=== PATIENT | male | born 1940 | race Caucasian/White ===

== ENCOUNTER → 2017-07-21 14:54 | Outpatient (CLI) | payer OTHER, SELFPAY ==
[2017-07-21 15:48] LABS: Add Manual Diff / Slide Review YES; Mean Corpuscular HGB Conc 35.3 % (30-36); Mean Corpuscular Hemoglobin 35.9 PG (26-34); Mean Corpuscular Volume 101.7 fL (80-100); Platelet Count 169 X10^3/uL (150-400); Red Blood Cell Count 3.35 X10^6/uL (4.5-5.9); Red Cell Distribution Width 13.4 % (11.6-14.8); White Blood Cell Count 3.3 X10^3/uL (4.5-11.0)
[2017-07-21 15:57] LABS: Alanine Aminotransferase 56 IU/L (21-72); Albumin 4.3 g/dL (3.5-5.0); Albumin Globulin Ratio 1.2 (1.0-2.8); Alkaline Phosphatase 83 U/L (38-126); Aspartate Aminotransferase 46 IU/L (17-59); BUN Creatinine Ratio 18.2 (6-22); Bilirubin Total 0.6 mg/dL (0.2-1.3); Calcium 9.4 mg/dL (8.4-10.2); Estimated Glomerular Filt Rate > 60.0 mL/min (>60); Globulin 3.5 g/dL (1.7-4.1); Glucose 79 mg/dL (80-110); HEMOLYSIS < 15 (0-50); Lactate Dehydrogenase 582 U/L (313-618); Potassium 3.7 mmol/L (3.4-5.1); Sodium 140 mmol/L (137-145); Total Protein 7.8 g/dL (6.3-8.2)
[2017-07-21 16:07] LABS: Morphology Comment Normal Morphology; Neutrophils Absolute Manual 1089 /uL (3000-5900); Total Cells Counted 100
[2017-07-21 17:03] LABS: Vitamin B12 425 pg/mL (239-931)
[2017-07-21 17:04] LABS: Folate > 20.0 ng/mL (2.76-20.0)
== END ==
PROVIDERS: PCP Family Medicine; Visit Provider Internal Medicine Hematology & Oncology
DX: D61.818 Other pancytopenia (principal)
CPT/HCPCS: 36415; 80053; 82607; 82746; 83615; 85025; 85060

== ENCOUNTER → 2017-11-07 13:55 | Outpatient (CLI) | payer OTHER, SELFPAY ==
[2017-11-07 14:39] LABS: Add Manual Diff / Slide Review YES; Hematocrit 34.9 % (41-53); Hemoglobin 12.4 g/dL (13.5-17.5); Mean Corpuscular HGB Conc 35.5 % (30-36); Mean Corpuscular Hemoglobin 36.8 PG (26-34); Mean Corpuscular Volume 103.7 fL (80-100); Platelet Count 154 X10^3/uL (150-400); Red Blood Cell Count 3.37 X10^6/uL (4.5-5.9); Red Cell Distribution Width 13.5 % (11.6-14.8)
[2017-11-07 14:40] LABS: Alanine Aminotransferase 42 IU/L (21-72); Albumin 4.1 g/dL (3.5-5.0); Albumin Globulin Ratio 1.3 (1.0-2.8); Alkaline Phosphatase 79 U/L (38-126); Aspartate Aminotransferase 39 IU/L (17-59); BUN Creatinine Ratio 18.9 (6-22); Bilirubin Total 0.8 mg/dL (0.2-1.3); Blood Urea Nitrogen 17 mg/dL (9-20); Carbon Dioxide 26 mmol/L (22-32); Chloride 105 mmol/L (98-107); Estimated Glomerular Filt Rate > 60.0 mL/min (>60); Globulin 3.1 g/dL (1.7-4.1); Glucose 100 mg/dL (80-110); HEMOLYSIS < 15 (0-50); Lactate Dehydrogenase 614 U/L (313-618); Potassium 4.1 mmol/L (3.4-5.1); Sodium 143 mmol/L (137-145); Total Protein 7.2 g/dL (6.3-8.2)
[2017-11-07 15:02] LABS: Microcytosis 1+; Neutrophils Absolute Manual 1260 /uL (3000-5900); Total Cells Counted 100
--- NOTE | 2017-11-07 16:35 | PC.NURSE ---
no lab history but appears stable, provider visit 11/10
== END ==
PROVIDERS: PCP Family Medicine; Visit Provider Internal Medicine Hematology & Oncology
DX: D61.818 Other pancytopenia (principal)
CPT/HCPCS: 36415; 80053; 83615; 85025

== ENCOUNTER 2018-11-19 22:19 | Emergency (ER) | payer OTHER, SELFPAY ==
[2018-11-19 22:42] VITALS: BP 127/56; PULSE 71; RESP 18; TEMP 36.3; O2SAT 98; BMI 24.4
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
== END 2018-11-19 23:13 | disposition left against medical advice (07) ==
PROVIDERS: Emergency Provider Emergency Medicine; PCP Family Medicine
DX: M54.2 Cervicalgia (principal)
CPT/HCPCS: 99282

== ENCOUNTER 2018-11-20 07:42 | Emergency (ER) | payer OTHER, SELFPAY ==
[2018-11-20 07:48] VITALS: BP 153/66; PULSE 66; RESP 16; TEMP 36.3; O2SAT 100
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
[2018-11-20 09:00] VITALS: BP 148/70; PULSE 60; RESP 14; O2SAT 100
== END 2018-11-20 09:52 | disposition home or self-care (01) ==
PROVIDERS: Emergency Provider Emergency Medicine; PCP Family Medicine
DX: S16.1XXA Strain of muscle, fascia and tendon at neck level, initial encounter (principal); M54.9 Dorsalgia, unspecified; V49.49XA Driver injured in collision with other motor vehicles in traffic accident, initial encounter
CPT/HCPCS: 72070; 72125; 99283

== ENCOUNTER 2019-02-03 19:43 | Emergency (ER) | payer OTHER, SELFPAY ==
[2019-02-03 19:54] VITALS: BP 148/94; PULSE 122; RESP 18; TEMP 38.2; O2SAT 99; BMI 29.0
--- NOTE | 2019-02-03 19:54 | DI.RAD.S_ITS ---
PROCEDURE: XR CHEST 1V INDICATIONS: Fever and cough TECHNIQUE: One view of the chest was acquired. COMPARISON: None. FINDINGS: Surgical changes and devices: None. Lungs and pleura: Lungs are clear. No pleural effusions or pneumothorax. Mediastinum: Mediastinal contours appear normal. Heart size is normal. Bones and chest wall: No suspicious bony lesions. Overlying soft tissues appear unremarkable. IMPRESSION: No evidence acute pulmonary process. Dictated by: Dipesh Boucher M.D. on 02/03/2019 at 20:53 Approved by: Dipesh Boucher M.D. on 02/03/2019 at 20:54
--- NOTE | 2019-02-03 20:17 | ED_ITS ---
HPI - Fever General Chief Complaint: Fever Stated Complaint: not feeling well/high temp/cold and shivery Time Seen by Provider: 02/03/19 19:53 Source: patient Mode of arrival: Ambulatory Limitations: no limitations History of Present Illness HPI Narrative: 78-year-old male history of hypertension here for evaluation of less than 24 hours of body aches and chills and dry heaving. No chest pain or shortness of breath. No urinary symptoms. No rashes. Has not tried anything for symptoms prior to arrival. No recent changes. No sick contacts. No diarrhea. Related Data Home Medications Medication Instructions Recorded Confirmed multivitamin [Multiple Vitamins] 1 tab PO QDAY #0 07/05/17 aspirin 81 mg PO BID 08/04/17 08/04/17 gabapentin 100 mg PO DAILY 08/04/17 08/04/17 gabapentin 300 mg PO BEDTIME 08/04/17 08/04/17 lisinopril 5 mg PO DAILY 08/04/17 08/04/17 tamsulosin [Flomax] 0.4 mg PO DAILY 08/04/17 08/04/17 Allergies Allergy/AdvReac Type Severity Reaction Status Date / Time No Known Drug Allergies Allergy Verified 11/19/18 22:49 Review of Systems Constitutional Constitutional: Reports chills and Reports fever(s) ENT Ears, Nose, Mouth, and Throat: Denies sore throat and Denies throat swelling Cardiovascular Cardiovascular: Denies chest pain and Denies dyspnea Respiratory Respiratory: Denies cough and Denies dyspnea Gastrointestinal Gastrointestinal: Denies abdominal pain, Denies change in stool character and Reports nausea Genitourinary Genitourinary: Denies dysuria and Denies flank pain Musculoskeletal Musculoskeletal: Reports myalgias and Denies arthralgias Integumentary/Breasts Skin/Breast: Denies rash Neurologic Neurologic: Denies behavioral changes Psychiatric Psychiatric: Denies behavioral changes Hematologic/Lymphatic Hematologic/Lymphatic: Denies easy bleeding and Denies easy bruising Allergic/Immunologic Allergic/Immunologic: Denies throat swelling Patient History Medical History Hypertension (Acute) Pancytopenia (Inactive) Social History marital status: Smoking Status: Never smoker alcohol intake frequency: 0-2 drinks per day Substance Use Type: marijuana Exam Initial Vital Signs Initial Vital Signs: Vital Signs Temperature 100.8 F H 02/03/19 19:54 Pulse Rate 122 H 02/03/19 19:54 Respiratory Rate 18 02/03/19 19:54 Blood Pressure 148/94 H 02/03/19 19:54 Pulse Oximetry 99 02/03/19 19:54 Const General: cooperative, well developed and well groomed Orientation: alert, awake and oriented x3 HENMT Head: normal to inspection and normocephalic Nose: external nose normal Face and sinus: normal facial exam Resp Effort & Inspection: normal respiratory effort Auscultation: clear to auscultation bilaterally Cardio Rate: tachycardic Rhythm: regular rhythm Pulses: radial pulses present GI Inspection: non-distended Palpation: soft and No firm Back/Spine/Pelvis Back: No CVA tenderness Skin Other: Superficial abrasion right anterior erickson otherwise no rashes Neuro General: alert, awake and oriented x3 Cognition: normal cognition Speech: speech normal Extrem General: normal to inspection and capillary refill normal Course Orders Ordered: ED Orders 02/03/19 19:54 XR chest 1V Stat 02/03/19 19:55 Influenza A and B by PCR Rapid Stat EKG-12 Lead Stat 02/03/19 20:15 Complete Blood Count AUTO DIFF Stat Lactate (Lactic Acid) Stat Procalcitonin Stat 02/03/19 20:40 Blood Culture Stat Comprehensive Metabolic Panel Stat Lipase Stat Discontinued Medications Acetaminophen (Tylenol) 650 mg PO NOW ONE Stop: 02/03/19 20:00 Last Admin: 02/03/19 20:19 Dose: 650 mg Documented by: SANDOVAL Sodium Chloride (Normal Saline 0.9%) 1,000 mls @ 1,000 mls/hr IV BOLUS ONE Stop: 02/03/19 20:52 Last Infusion: 02/03/19 21:13 Dose: 0 mls/hr Documented by: Admin: 02/03/19 20:19 Dose: 1,000 mls/hr Documented by: SANDOVAL Ibuprofen (Advil) 800 mg PO NOW ONE Stop: 02/03/19 21:17 Last Admin: 02/03/19 21:21 Dose: 800 mg Documented by: MICHAEL Ondansetron HCl (Zofran) 4 mg IV NOW ONE Stop: 02/03/19 19:54 Last Admin: 02/03/19 20:19 Dose: 4 mg Documented by: SANDOVAL Vital Signs Vital signs: Vital Signs - 8 hr 02/03/19 19:54 02/03/19 20:47 02/03/19 21:15 Temperature 100.8 F H 100.8 F H 100.6 F H Pulse Rate 122 H 97 H Respiratory Rate 18 12 Blood Pressure 148/94 H Blood Pressure [Right Arm] 132/52 L Pulse Oximetry 99 97 MDM - Fever Medical Records Attestation: I reviewed the patient's medical records. Lab Data Attestation: I reviewed the patient's lab results. Result diagrams: 02/03/19 20:15 02/03/19 20:40 Labs: Lab Results 02/03/19 02/03/19 02/03/19 Range/Units 19:55 20:15 20:15 WBC 2.9 L (4.5-11.0) X10^3/uL RBC 2.95 L (4.5-5.9) X10^6/uL Hgb 11.0 L (13.5-17.5) g/dL Hct 30.5 L (41-53) % MCV 103.5 H (80-100) fL MCH 37.4 H (26-34) PG MCHC 36.2 H (30-36) % RDW 13.4 (11.6-14.8) % Plt Count 120 L (150-400) X10^3/uL Neut % (Auto) 74.1 (50-75) % Lymph % (Auto) 6.6 L (25-40) % [place] % (Auto) 18.5 H (3-14) % Eos % (Auto) 0.7 L (2-4) % Baso % (Auto) 0.1 (0-2) % Neut # (Auto) 2100 (2048-3878) /uL Lymph # (Auto) 200 L (5852-7579) /uL [place] # (Auto) 500 (0-900) /uL Eos # (Auto) 0 (0-450) /uL Baso # (Auto) 0 (0-100) /uL Total Counted Cancelled Seg Neutrophils % Cancelled Band Neutrophils % Cancelled Lymphocytes % (Manual) Cancelled Atypical Lymphs % Cancelled Monocytes % (Manual) Cancelled Eosinophils % (Manual) Cancelled Basophils % (Manual) Cancelled Metamyelocytes % Cancelled Myelocytes % Cancelled Promyelocytes % Cancelled Blast Cells % Cancelled Neutrophils # (Manual) Cancelled Nucleated RBCs Cancelled Differential Comment Cancelled Hypersegmented Neuts Cancelled Hypogranular Neuts Cancelled Reactive Lymphocytes Cancelled Plasma Cells Cancelled Smudge Cells Cancelled Other Cell Type Cancelled Toxic Granulation Cancelled Toxic Vacuolation Cancelled Dohle Bodies Cancelled Analy Rods Cancelled WBC Morphology Comment Cancelled Platelet Estimate Cancelled Clumped Platelets Cancelled Plt Morphology Comment Cancelled RBC Morphology Cancelled Dimorphic RBCs Cancelled Polychromasia Cancelled Hypochromasia Cancelled Poikilocytosis Cancelled Basophilic Stippling Cancelled Anisocytosis Cancelled Microcytosis Cancelled Macrocytosis Cancelled Spherocytes Cancelled Pappenheimer Bodies Cancelled Sickle Cells Cancelled Target Cells Cancelled Tear Drop Cells Cancelled Ovalocytes Cancelled Stomatocytes Cancelled Helmet Cells Cancelled Fairchild-Alvan Bodies Cancelled [place] Rings Cancelled Arsen Cells Cancelled Acanthocytes (Spur) Cancelled Rouleaux Cancelled Schistocytes Cancelled Sodium (137-145) mmol/L Potassium (3.4-5.1) mmol/L Chloride (98-107) mmol/L Carbon Dioxide (22-32) mmol/L BUN (9-20) mg/dL Creatinine (0.66-1.25) mg/dL Estimated GFR (>60) mL/min BUN/Creatinine Ratio (6-22) Glucose (80-110) mg/dL Lactate (0.7-2.1) mmol/L Calcium (8.4-10.2) mg/dL Total Bilirubin (0.2-1.3) mg/dL AST (17-59) IU/L ALT (<50) IU/L Alkaline Phosphatase (38-126) U/L Total Protein (6.3-8.2) g/dL Albumin (3.5-5.0) g/dL Globulin (1.7-4.1) g/dL Albumin/Globulin Ratio (1.0-2.8) Lipase (23-300) U/L Procalcitonin 0.07 (<0.5) ng/mL Influenza A & B (PCR) Negative (Negative) 02/03/19 02/03/19 Range/Units 20:15 20:40 WBC (4.5-11.0) X10^3/uL RBC (4.5-5.9) X10^6/uL Hgb (13.5-17.5) g/dL Hct (41-53) % MCV (80-100) fL MCH (26-34) PG MCHC (30-36) % RDW (11.6-14.8) % Plt Count (150-400) X10^3/uL Neut % (Auto) (50-75) % Lymph % (Auto) (25-40) % [place] % (Auto) (3-14) % Eos % (Auto) (2-4) % Baso % (Auto) (0-2) % Neut # (Auto) (5498-6968) /uL Lymph # (Auto) (9915-9129) /uL [place] # (Auto) (0-900) /uL Eos # (Auto) (0-450) /uL Baso # (Auto) (0-100) /uL Total Counted Seg Neutrophils % Band Neutrophils % Lymphocytes % (Manual) Atypical Lymphs % Monocytes % (Manual) Eosinophils % (Manual) Basophils % (Manual) Metamyelocytes % Myelocytes % Promyelocytes % Blast Cells % Neutrophils # (Manual) Nucleated RBCs Differential Comment Hypersegmented Neuts Hypogranular Neuts Reactive Lymphocytes Plasma Cells Smudge Cells Other Cell Type Toxic Granulation Toxic Vacuolation Dohle Bodies [place] Rods WBC Morphology Comment Platelet Estimate Clumped Platelets Plt Morphology Comment RBC Morphology Dimorphic RBCs Polychromasia Hypochromasia Poikilocytosis Basophilic Stippling Anisocytosis Microcytosis Macrocytosis Spherocytes Pappenheimer Bodies Sickle Cells Target Cells Tear Drop Cells Ovalocytes Stomatocytes Helmet Cells Fairchild-Alvan Bodies [place] Rings [place] Cells Acanthocytes (Spur) Rouleaux Schistocytes Sodium 135 L (137-145) mmol/L Potassium 3.6 (3.4-5.1) mmol/L Chloride 103 (98-107) mmol/L Carbon Dioxide 25 (22-32) mmol/L BUN 31 H (9-20) mg/dL Creatinine 1.10 (0.66-1.25) mg/dL Estimated GFR > 60.0 (>60) mL/min BUN/Creatinine Ratio 28.2 H (6-22) Glucose 107 (80-110) mg/dL Lactate 1.3 (0.7-2.1) mmol/L Calcium 9.0 (8.4-10.2) mg/dL Total Bilirubin 0.7 (0.2-1.3) mg/dL AST 23 (17-59) IU/L ALT 14 (<50) IU/L Alkaline Phosphatase 66 (38-126) U/L Total Protein 7.0 (6.3-8.2) g/dL Albumin 3.9 (3.5-5.0) g/dL Globulin 3.1 (1.7-4.1) g/dL Albumin/Globulin Ratio 1.3 (1.0-2.8) Lipase 37 (23-300) U/L Procalcitonin (<0.5) ng/mL Influenza A & B (PCR) (Negative) Imaging Data Chest x-ray: Radiologist's impression: [address] [address] XRay Report Signed Patient: Jairo OchoaMR#: [id number] : 1Acct:[id number] Age/Sex: 78 / MDate of Service: 02/03/19 Loc: ED Accession Number: [id number] Procedure: XR chest 1V Ordering Provider: Timothy Win D.O. PROCEDURE: XR CHEST 1V INDICATIONS: Fever and cough TECHNIQUE: One view of the chest was acquired. COMPARISON: None. FINDINGS: Surgical changes and devices: None. Lungs and pleura: Lungs are clear. No pleural effusions or pneumothorax. Mediastinum: Mediastinal contours appear normal. Heart size is normal. Bones and chest wall: No suspicious bony lesions. Overlying soft tissues a ppear unremarkable. IMPRESSION: No evidence acute pulmonary process. Dictated by: Dipesh Boucher M.D. on 02/03/2019 at 20:53 Approved by: Dipesh Boucher M.D. on 02/03/2019 at 20:54 ECG Data Attestation: I personally reviewed and interpreted this ECG as follows: Prior ECG tracings: not available for review Interpretation: Sinus tachycardia Ventricular rate of 108 Normal axis Normal QRS Normal QTC No ST T wave changes MDM Narrative Medical decision making narrative: Patient is nontoxic appearing. He had a low- grade fever upon arrival and tachycardia however this improved with fluids. Patient has a low white blood cell count however this is not new for him. He does not have a left shift. Lipase is unremarkable. Procalcitonin is unremarkable. Chest x-ray shows no signs of pneumonia. Patient was unable to provide a urine sample however he has no urinary tract infection like symptoms and has never had a urinary tract infection in the past. He has no changes of his skin concerning for cellulitis. His abdomen is benign. Has no signs of meningitis. Flu is negative. I have no indication for antibiotics. I do not have a specific source for his fever. He has had some slight abdominal pain and some dry heaves prior to arrival with that has improved was able to tolerate oral intake. Potentially could be fighting a GI source. Will hold on further workup for now. Patient feels like he can go home. We will hold on antibiotics. We did discuss the use of Tylenol and ibuprofen. Blood cultures are pending. Patient was given strict return precautions. He expressed understanding and agreement with plan. Discharge Plan Departure Patient Disposition: Home Clinical Impression: Fever of unknown origin, Chill, Nausea Instructions: DI for Fever (Symptom) -- Adult Activity Restrictions/Additional Instructions: Take the nausea medication as needed and as directed. Continue the rest your medications as directed. You can take Tylenol and/or ibuprofen for any fevers. I recommend that on Tuesday you contact your primary provider for follow-up. Return to the emergency department for any new or worsening symptoms Prescriptions: No Action multivitamin [Multiple Vitamins] 1 EACH tablet 1 tab PO QDAY Qty: 0 RF: 0 aspirin 81 mg Tablet,Delayed Release (Dr/Ec) 81 mg PO BID RF: 0 tamsulosin [Flomax] 0.4 mg Capsule,Extended Release 24hr 0.4 mg PO DAILY RF: 0 lisinopril 5 mg Tablet 5 mg PO DAILY RF: 0 gabapentin 100 mg Capsule 100 mg PO DAILY RF: 0 gabapentin 100 mg Capsule 300 mg PO BEDTIME RF: 0 Referrals: Shandra Barrett MD [Primary Care Provider] -
[2019-02-03] MEDS: ACETAMINOPHEN 325 MG TABLET 650 MG PO (20:19)
[2019-02-03] MEDS: ONDANSETRON 4 MG/2 ML INJ IV (20:19)
[2019-02-03] MEDS: SODIUM CHLORIDE 0.9% 1,000 ML 1000 ML IV (20:19)
[2019-02-03 20:22] LABS: Influenza A and B by PCR Rapid Negative (Negative)
[2019-02-03 20:24] LABS: Add Manual Diff / Slide Review NO; Basophils Absolute Auto 0 /uL (0-100); Basophils Percent Auto 0.1 % (0-2); Eosinophils Absolute Auto 0 /uL (0-450); Eosinophils Percent Auto 0.7 % (2-4); Hematocrit 30.5 % (41-53); Lymphocytes Absolute Auto 200 /uL (1100-4500); Lymphocytes Percent Auto 6.6 % (25-40); Mean Corpuscular HGB Conc 36.2 % (30-36); Mean Corpuscular Hemoglobin 37.4 PG (26-34); Mean Corpuscular Volume 103.5 fL (80-100); Monocytes Absolute Auto 500 /uL (0-900); Monocytes Percent Auto 18.5 % (3-14); Neutrophils Absolute Auto 2100 /uL (1500-7000); Neutrophils Percent Auto 74.1 % (50-75); Platelet Count 120 X10^3/uL (150-400); Red Blood Cell Count 2.95 X10^6/uL (4.5-5.9); Red Cell Distribution Width 13.4 % (11.6-14.8); White Blood Cell Count 2.9 X10^3/uL (4.5-11.0)
[2019-02-03 20:35] LABS: Lactate (Lactic Acid) 1.3 mmol/L (0.7-2.1)
[2019-02-03 20:47] VITALS: BP 132/52; PULSE 97; RESP 12; TEMP 38.2; O2SAT 97
[2019-02-03 20:53] LABS: Procalcitonin 0.07 ng/mL (<0.5)
[2019-02-03 21:13] LABS: Alanine Aminotransferase 14 IU/L (<50); Albumin 3.9 g/dL (3.5-5.0); Albumin Globulin Ratio 1.3 (1.0-2.8); Alkaline Phosphatase 66 U/L (38-126); Aspartate Aminotransferase 23 IU/L (17-59); BUN Creatinine Ratio 28.2 (6-22); Bilirubin Total 0.7 mg/dL (0.2-1.3); Blood Urea Nitrogen 31 mg/dL (9-20); Carbon Dioxide 25 mmol/L (22-32); Chloride 103 mmol/L (98-107); Estimated Glomerular Filt Rate > 60.0 mL/min (>60); Globulin 3.1 g/dL (1.7-4.1); Glucose 107 mg/dL (80-110); HEMOLYSIS < 15 (0-50); Lipase 37 U/L (23-300); Potassium 3.6 mmol/L (3.4-5.1); Sodium 135 mmol/L (137-145)
[2019-02-03 21:15] VITALS: TEMP 38.1
[2019-02-03] MEDS: IBUPROFEN 400 MG TABLET 800 MG PO (21:21)
[2019-02-03 21:52] VITALS: BP 117/60; PULSE 93; RESP 15
[2019-02-03] MEDS: ONDANSETRON 4 MG ODT PREPACK 1 BOTTLE MISC (21:52)
[2019-02-03 21:54] VITALS: BP 117/60; PULSE 92; RESP 16; TEMP 37.7; O2SAT 97
== END 2019-02-03 22:01 | disposition home or self-care (01) ==
PROVIDERS: Emergency Provider Emergency Medicine; PCP Internal Medicine
DX: R50.9 Fever, unspecified (principal); R11.0 Nausea; R05 Cough; R00.0 Tachycardia, unspecified; I10 Essential (primary) hypertension
CPT/HCPCS: 36415; 71045; 80053; 83605; 83690; 84145; 85025; 87040; 87502; 93005; 96361; 96374; 99283; 99285; J2405

== ENCOUNTER 2019-07-18 16:19 | Emergency (ER) | payer OTHER, SELFPAY ==
[2019-07-18] VITALS (9 sets, daily range): BP systolic 178–229; BP diastolic 88–127; PULSE 60–98; RESP 15–19; TEMP 36.9; O2SAT 96–98; BMI 28.6
[2019-07-18 17:14] LABS: Hematocrit 34.4 % (41-53); Hemoglobin 12.2 g/dL (13.5-17.5); Mean Corpuscular HGB Conc 35.6 % (30-36); Mean Corpuscular Hemoglobin 35.9 PG (26-34); Mean Corpuscular Volume 100.8 fL (80-100); Platelet Count 140 X10^3/uL (150-400); Red Blood Cell Count 3.41 X10^6/uL (4.5-5.9); Red Cell Distribution Width 13.5 % (11.6-14.8); White Blood Cell Count 2.6 X10^3/uL (4.5-11.0)
[2019-07-18 17:16] LABS: Add Manual Diff / Slide Review YES
[2019-07-18 17:23] LABS: Alanine Aminotransferase 19 IU/L (<50); Albumin Globulin Ratio 1.1 (1.0-2.8); Alkaline Phosphatase 73 U/L (38-126); Aspartate Aminotransferase 32 IU/L (17-59); BUN Creatinine Ratio 22.7 (6-22); Bilirubin Total 0.5 mg/dL (0.2-1.3); Blood Urea Nitrogen 20 mg/dL (9-20); Calcium 8.7 mg/dL (8.4-10.2); Carbon Dioxide 25 mmol/L (22-32); Chloride 107 mmol/L (98-107); Creatine Kinase 235 U/L (55-170); Estimated Glomerular Filt Rate > 60.0 mL/min (>60); Globulin 3.5 g/dL (1.7-4.1); Glucose 105 mg/dL (80-110); HEMOLYSIS < 15 (0-50); Potassium 3.9 mmol/L (3.4-5.1); Sodium 139 mmol/L (137-145); Total Protein 7.5 g/dL (6.3-8.2)
[2019-07-18 17:34] LABS: Troponin I 0.015 ng/mL (0.01-0.034)
[2019-07-18 17:38] LABS: CKMB % Relative Index 1.1 % (1.5-5.0); Creatine Kinase MB 2.57 ng/mL (<2.37)
[2019-07-18 17:42] LABS: Neutrophils Absolute Manual 520 /uL (3000-5900); Total Cells Counted 50
[2019-07-18 17:44] LABS: Macrocytosis 1+
[2019-07-18] MEDS: lisinopriL 10 MG TABLET PO (19:41)
[2019-07-18] MEDS: ACETAMINOPHEN 325 MG TABLET 650 MG PO (19:42)
[2019-07-18] MEDS: HYDRALAZINE 10 MG TABLET PO (20:53)
--- NOTE | 2019-07-18 21:37 | ED.GENADULT ---
HPI - General Adult <JAMES Calderon - Last Filed: 07/19/19 00:31> General Chief complaint: Hypertension Stated complaint: states high blood pressure Time Seen by Provider: 07/18/19 16:45 Source: patient Mode of arrival: Ambulatory Limitations: no limitations History of Present Illness HPI narrative: This is a 78-year-old male, nonsmoker, who presents to ED with chief complaint of elevated blood pressure without chest pain, dyspnea, dizziness, severe headache, vision change or abdominal pain. He has chronic medical conditions such as hypertension, BPH and currently takes penicillin 4 times a day for dental problem. Patient reports [facility] for tooth extraction and this was canceled due to his elevated blood pressure was referred to going to ED for evaluation. Patient reports at that time his blood pressure was 191 and 173 over 90's and diastolic. Patient states he takes lisinopril for blood pressure management but is not sure of the dose. He states he thinks he had taken blood pressure medication today around 1300. Patient states he does not have problem with memories but at times he forgets take his medications or misses a dose. Patient reports his usual blood pressure ranges from 120-150's in systolic. Patient reports occasional headaches during last 2 weeks. Otherwise, he denies weakness to extremities, speech difficulty, nausea, vomiting, balance problems. Related Data Home Medications Medication Instructions Recorded Confirmed multivitamin [Multiple Vitamins] 1 tab PO QDAY #0 07/05/17 aspirin 81 mg PO BID 08/04/17 08/04/17 gabapentin 100 mg PO DAILY 08/04/17 08/04/17 gabapentin 300 mg PO BEDTIME 08/04/17 08/04/17 lisinopril 5 mg PO DAILY 08/04/17 08/04/17 tamsulosin [Flomax] 0.4 mg PO DAILY 08/04/17 08/04/17 lisinopril-hydrochlorothiazide tab 07/18/19 Allergies Allergy/AdvReac Type Severity Reaction Status Date / Time No Known Drug Allergies Allergy Verified 11/19/18 22:49 Review of Systems <JAMES Calderon - Last Filed: 07/19/19 00:31> Review of Systems Narrative: General: Denies fever, chills, fatigue, malaise, sweats. HEENT: Denies sinus pain, ear pain, sore throat, difficulty swallowing, dizziness. Respiratory: Denies dyspnea, cough, wheezing, hemoptysis, sputum. Cardiovascular: Denies chest pain, palpitations, orthopnea, edema. Gastrointestinal: Denies nausea, vomiting, abdominal pain, diarrhea, constipation, melena. : Denies dysuria, frequency, incontinence, hematuria, urinary retention. Musculoskeletal: Denies weakness, joint pain or bony pain. Skin: Denies rash, skin lesions, or other. Neurologic: Denies weakness, (+) occasional headache, numbness, change in speech, confusion, seizures, incoordination. Psychiatric: No concerning psychosocial issues. 12-point review of systems is negative except for those stated above. Patient History <JAMES Calderon - Last Filed: 07/19/19 00:31> Medical History BPH (benign prostatic hyperplasia) (Acute) Hypertension (Acute) Pancytopenia (Inactive) Social History marital status: Smoking Status: Never smoker Smoking Status: Never smoker alcohol intake frequency: 0-2 drinks per day Substance Use Type: marijuana Exam <JAMES Calderon - Last Filed: 07/19/19 00:31> Narrative Exam Narrative: GEN: Alert, oriented x 3, well appearing and nourished, and in no acute distress. Head: Normal cephalic, atraumatic. No scalp or temporal tenderness, palpable mass or rash. EYES: Pupils are equal, round, and reactive to light and accommodation. Extraocular muscles are intact bilaterally. There is no subconjunctival hemorrhage, exudate and sclera non-icteric. ENT: Hearing grossly intact. Nose without bleeding, purulent discharge. Facial sinuses nontender to palpate. Mucous membrane moist, no mucosal lesion. Throat without erythema, tonsillar hypertrophy or exudate. Uvula in midline, airway patent. Neck: Trachea in midline. No JVD, non-tender without lymphadenopathy. No masses or thyroid megaly. Supple, non-tender and no meningeal signs. CARDIAC: Normal regular rate and rhythm without murmurs, gallops, or rubs. No chest wall tenderness. No peripheral edema, cyanosis or pallor. Capillary refill is less than 2 seconds. No carotid bruits. RESPIRATORY: Lungs are cleat to auscultate bilaterally. No cough, wheezes, rales, or rhonchi. No stridor, respiratory distress, increase work of breathing, or accessary muscle used. ABD: Abdomen soft, nontender and non-distended. No guarding or rebound tenderness to palpate. Bowel sounds are normal in all 4 quadrants. There is no palpable masses or organomegaly. EXT: Full painless ROM of all extremities with no loss of sensation, strength, effusion or edema. SKIN: Warm, dry, normal color for patient. No erythema, lesions or rash. BACK: Nontender without deformity or crepitance. No flank tenderness. NEUROLOGICAL: Alert and oriented to place, time and person. No facial droops, dysphasia. CN II-XII intact. Strength and sensation symmetric and intact throughout. Cerebellar testing normal. PSYCHIATRIC: Good judgement and reason, without hallucinations, abnormal affect or abnormal behaviors during the examination. Initial Vital Signs Initial Vital Signs: Vital Signs Temperature 98.4 F 07/18/19 16:31 Pulse Rate 69 07/18/19 16:31 Respiratory Rate 16 07/18/19 16:31 Blood Pressure 213/127 H 07/18/19 16:31 Pulse Oximetry 98 07/18/19 16:31 <Lawrence Montejo DO - Last Filed: 07/19/19 05:08> Initial Vital Signs Initial Vital Signs: Vital Signs Temperature 98.4 F 07/18/19 16:31 Pulse Rate 69 07/18/19 16:31 Respiratory Rate 16 07/18/19 16:31 Blood Pressure 213/127 H 07/18/19 16:31 Pulse Oximetry 98 07/18/19 16:31 Scores <JAMES Calderon - Last Filed: 07/19/19 00:31> GCS Kasey coma scale eye opening: Spontaneous Kasey coma scale verbal response: Orientated Kasey coma scale motor response: Obey commands [place] coma scale total score: 15 NIH Stroke Scale Level of Conciousness: Alert, keenly responsive Ask month/age: Answers both questions correctly. Open/close eyes, close hand: Performs both tasks correctly Best gaze horizontal: Normal Visual espinoza: No visual loss Facial palsy: Normal symetrical movement Left arm drift: No drift for full 10 sec Right arm drift: No drift for full 10 sec Left leg drift: No drift for full 10 sec Right leg drift: No drift for full 10 sec Limb ataxia: Absent Sensory on face/arms/legs: Normal, no sensory loss Best language: No aphasia, normal Dysarthria: Normal Extinction or inattention: No abnormality Total NIH Stroke scale score: 0 Course <JAMES Calderon - Last Filed: 07/19/19 00:31> Orders Ordered: Discontinued Medications Acetaminophen (Tylenol) 975 mg PO NOW ONE Stop: 07/18/19 17:18 Last Admin: 07/18/19 17:51 Dose: Not Given Documented by: MARIA D Acetaminophen (Tylenol) 650 mg PO NOW ONE Stop: 07/18/19 18:20 Last Admin: 07/18/19 19:42 Dose: 650 mg Documented by: VIVIANAFARL Hydralazine HCl (Apresoline) 10 mg PO NOW ONE Stop: 07/18/19 20:43 Last Admin: 07/18/19 20:53 Dose: 10 mg Documented by: VIVIANAFARL Lisinopril (Zestril) 10 mg PO NOW ONE Stop: 07/18/19 18:52 Last Admin: 07/18/19 19:41 Dose: 10 mg Documented by: DEANDRA Vital Signs Vital signs: Vital Signs - 8 hr 07/18/19 21:27 07/18/19 21:40 Pulse Rate 62 60 Respiratory Rate 15 Blood Pressure 178/88 H Blood Pressure [Right Arm] 198/93 H Pulse Oximetry 97 96 <Lawrence Montejo DO - Last Filed: 07/19/19 05:08> Orders Ordered: Discontinued Medications Acetaminophen (Tylenol) 975 mg PO NOW ONE Stop: 07/18/19 17:18 Last Admin: 07/18/19 17:51 Dose: Not Given Documented by: MARIA D Acetaminophen (Tylenol) 650 mg PO NOW ONE Stop: 07/18/19 18:20 Last Admin: 07/18/19 19:42 Dose: 650 mg Documented by: MMCFARL Hydralazine HCl (Apresoline) 10 mg PO NOW ONE Stop: 07/18/19 20:43 Last Admin: 07/18/19 20:53 Dose: 10 mg Documented by: MMCFARL Lisinopril (Zestril) 10 mg PO NOW ONE Stop: 07/18/19 18:52 Last Admin: 07/18/19 19:41 Dose: 10 mg Documented by: DEANDRA Vital Signs Vital signs: Vital Signs - 8 hr 07/18/19 21:27 07/18/19 21:40 Pulse Rate 62 60 Respiratory Rate 15 Blood Pressure 178/88 H Blood Pressure [Right Arm] 198/93 H Pulse Oximetry 97 96 Medical Decision Making <Conor Orantes JAMES - Last Filed: 07/19/19 00:31> Differential Diagnosis Differential Diagnosis: HTN crisis, essential HTN, cardiomyopathy Medical Records Medical records reviewed: Yes I reviewed the patient's medical records. Lab Data Lab results reviewed: Yes I reviewed the patient's lab results. Result diagrams: 07/18/19 17:04 07/18/19 17:04 Labs: Lab Results 07/18/19 07/18/19 Range/Units 17:04 17:04 WBC 2.6 L (4.5-11.0) X10^3/uL RBC 3.41 L (4.5-5.9) X10^6/uL Hgb 12.2 L (13.5-17.5) g/dL Hct 34.4 L (41-53) % MCV 100.8 H (80-100) fL MCH 35.9 H (26-34) PG MCHC 35.6 (30-36) % RDW 13.5 (11.6-14.8) % Plt Count 140 L (150-400) X10^3/uL Neut % (Auto) Not Reportable Lymph % (Auto) Not Reportable Stone % (Auto) Not Reportable Eos % (Auto) Not Reportable Baso % (Auto) Not Reportable Lymph # (Auto) Not Reportable Stone # (Auto) Not Reportable Baso # (Auto) Not Reportable Total Counted 50 Seg Neutrophils % 6.0 L (38-70) % Band Neutrophils % 14.0 H (3-7) % Lymphocytes % (Manual) 22.0 L (25-45) % Atypical Lymphs % 14.0 H ( - 0) % Monocytes % (Manual) 42.0 H (2-11) % Metamyelocytes % 2.0 H (-0) % Neutrophils # (Manual) 520 L (2834-3681) /uL Plt Morphology Comment RBC Morphology See below Macrocytosis 1+ H Sodium 139 (137-145) mmol/L Potassium 3.9 (3.4-5.1) mmol/L Chloride 107 (98-107) mmol/L Carbon Dioxide 25 (22-32) mmol/L BUN 20 (9-20) mg/dL Creatinine 0.88 (0.66-1.25) mg/dL Estimated GFR > 60.0 (>60) mL/min BUN/Creatinine Ratio 22.7 H (6-22) Glucose 105 (80-110) mg/dL Calcium 8.7 (8.4-10.2) mg/dL Total Bilirubin 0.5 (0.2-1.3) mg/dL AST 32 (17-59) IU/L ALT 19 (<50) IU/L Alkaline Phosphatase 73 (38-126) U/L Total Creatine Kinase 235 H (55-170) U/L CK-MB (CK-2) 2.57 H (<2.37) ng/mL CK-MB (CK-2) Rel Index 1.1 L (1.5-5.0) % Troponin I 0.015 (0.01-0.034) ng/mL Total Protein 7.5 (6.3-8.2) g/dL Albumin 4.0 (3.5-5.0) g/dL Globulin 3.5 (1.7-4.1) g/dL Albumin/Globulin Ratio 1.1 (1.0-2.8) Imaging Data Chest x-ray: Radiologist's Impression: [address] [address] XRay Report Signed Patient: Jairo Ochoa#: [id number] : 1Acct:[id number] Age/Sex: 78 / MDate of Service: 02/03/19 Loc: ED Accession Number: [id number] Procedure: XR chest 1V Ordering Provider: Timothy Win D.O. PROCEDURE: XR CHEST 1V INDICATIONS: Fever and cough TECHNIQUE: One view of the chest was acquired. COMPARISON: None. FINDINGS: Surgical changes and devices: None. Lungs and pleura: Lungs are clear. No pleural effusions or pneumothorax. Mediastinum: Mediastinal contours appear normal. Heart size is normal. Bones and chest wall: No suspicious bony lesions. Overlying soft tissues appear unremarkable. IMPRESSION: No evidence acute pulmonary process. Dictated by: Dipesh Boucher M.D. on 02/03/2019 at 20:53 Approved by: Dipesh Boucher M.D. on 02/03/2019 at 20:54 ECG Data Attestation: I personally reviewed and interpreted this ECG as follows: Prior ECG tracings: available for review Interpretation: Sinus rhythm rate at 72. Normal [place]. MI interval 142, QRS duration 80, QT/QTC 398/439. No ST elevation or depression. MDM Narrative Medical decision making narrative: This is a 78-year-old gentleman who presents to ED for elevated blood pressure after he was referred by his dentist this morning. Patient denies chest pain, breathing difficulty, dizziness, vision change, balance problem, weakness to extremities, speech difficulty. Patient reports he has occasional mild headache last couple of weeks. The neurological and Physical exams were unremarkable. was unremarkable. EKG was normal sinus rhythm without ST elevation or depression. chest x-ray shows no acute changes with normal heart size. CBC shows mild anemia your in patient's baseline. Chemistry test was unremarkable with normal liver and kidney function test. Troponin was negative with mildly elevated total CK is with slightly decresed CK-MB index. Patient was initially monitored without any medication therapy but this was unsuccessful. The highest BP was 229 in systolic upto 127 diastolic. It appears to be patient had not started on new hypertensive medication of Lisinopril 20mg/HCTZ 25mg which was prescribed yesterday and has taken lisinopril 5 mg as his old prescription. Patient was provided 10 mg of lisinopril while in ED without much efficacy and remaining BP as 207/97. Patient was treated with Hydralizine 10 mg one time dose orally. Patient's blood pressure had decreased to 198/93. Patient advised to start his new blood pressure medication tomorrow morning. Patient requested tamsulosin refill stating ran out which appears to be already has an refill order in [facility] by his PCP. Patient advised to monitor his blood pressure next several days and to follow up with his primary care physician to check the efficacy of new blood pressure medication. No additional medication has been prescribed at this time. Patient advised to use pill box and setting an alarm to remind him to take medications regularly. Return precautions were discussed with patient and patient verbalized understanding in agreement with treatment plan. <Lawrence Montejo, DO - Last Filed: 07/19/19 05:08> Lab Data Labs: Lab Results 07/18/19 07/18/19 Range/Units 17:04 17:04 WBC 2.6 L (4.5-11.0) X10^3/uL RBC 3.41 L (4.5-5.9) X10^6/uL Hgb 12.2 L (13.5-17.5) g/dL Hct 34.4 L (41-53) % MCV 100.8 H (80-100) fL MCH 35.9 H (26-34) PG MCHC 35.6 (30-36) % RDW 13.5 (11.6-14.8) % Plt Count 140 L (150-400) X10^3/uL Neut % (Auto) Not Reportable Lymph % (Auto) Not Reportable Stone % (Auto) Not Reportable Eos % (Auto) Not Reportable Baso % (Auto) Not Reportable Lymph # (Auto) Not Reportable Stone # (Auto) Not Reportable Baso # (Auto) Not Reportable Total Counted 50 Seg Neutrophils % 6.0 L (38-70) % Band Neutrophils % 14.0 H (3-7) % Lymphocytes % (Manual) 22.0 L (25-45) % Atypical Lymphs % 14.0 H ( - 0) % Monocytes % (Manual) 42.0 H (2-11) % Metamyelocytes % 2.0 H (-0) % Neutrophils # (Manual) 520 L (9876-3279) /uL Plt Morphology Comment RBC Morphology See below Macrocytosis 1+ H Sodium 139 (137-145) mmol/L Potassium 3.9 (3.4-5.1) mmol/L Chloride 107 (98-107) mmol/L Carbon Dioxide 25 (22-32) mmol/L BUN 20 (9-20) mg/dL Creatinine 0.88 (0.66-1.25) mg/dL Estimated GFR > 60.0 (>60) mL/min BUN/Creatinine Ratio 22.7 H (6-22) Glucose 105 (80-110) mg/dL Calcium 8.7 (8.4-10.2) mg/dL Total Bilirubin 0.5 (0.2-1.3) mg/dL AST 32 (17-59) IU/L ALT 19 (<50) IU/L Alkaline Phosphatase 73 (38-126) U/L Total Creatine Kinase 235 H (55-170) U/L CK-MB (CK-2) 2.57 H (<2.37) ng/mL CK-MB (CK-2) Rel Index 1.1 L (1.5-5.0) % Troponin I 0.015 (0.01-0.034) ng/mL Total Protein 7.5 (6.3-8.2) g/dL Albumin 4.0 (3.5-5.0) g/dL Globulin 3.5 (1.7-4.1) g/dL Albumin/Globulin Ratio 1.1 (1.0-2.8) Discharge Plan Departure Patient Disposition: Home Clinical Impression: Hypertension Qualifiers: Hypertension type: unspecified Qualified Code(s): I10 - Essential (primary) hypertension Discharge Date/Time: 07/18/19 21:40 Instructions: DI for High Blood Pressure Activity Restrictions/Additional Instructions: You have been diagnosed with [hypertension, BP 213/127 initially when he arrived in ED without symptoms. You were medicated with additional lisinopril 10 mg and hydralazine 10 mg while in ED which improved. it appears to be that you had not started new blood pressure medication that was prescribed yesterday, lisinopril 25 mg/HCTZ. ]. What to do: *Take your medications as directed. Please utilize pillbox to remind herself to take blood pressure medications in the morning and set an alarm. Please monitor blood pressure over next few days after taking the new medications. Please take Flomax at night as well. *Follow up with your primary care provider in 2-3 days, call for an appointment. Let them know you were seen in the ED and that we asked you to be seen in follow up. *Return to ED if you have any new, worsening, or concerning symptoms, such as [chest pain, breathing difficulty, unable to tolerate fluids, stroke symptoms, or any acute concerns]. Prescriptions: No Action multivitamin [Multiple Vitamins] 1 EACH tablet 1 tab PO QDAY Qty: 0 RF: 0 aspirin 81 mg Tablet,Delayed Release (Dr/Ec) 81 mg PO BID RF: 0 tamsulosin [Flomax] 0.4 mg Capsule,Extended Release 24hr 0.4 mg PO DAILY RF: 0 lisinopril 5 mg Tablet 5 mg PO DAILY RF: 0 gabapentin 100 mg Capsule 100 mg PO DAILY RF: 0 gabapentin 100 mg Capsule 300 mg PO BEDTIME RF: 0 lisinopril-hydrochlorothiazide 20-25 mg tablet RF: 0 Referrals: Shandra Barrett MD [Primary Care Provider] - <Lawrence Montejo DO - Last Filed: 07/19/19 05:08> Cosign ED Attending Cosignature Attestation: I was immediately available in the department for consultation. This documentation has been reviewed and I agree with assessment and plan. Supervised by Lawrence Montejo DO
== END 2019-07-18 21:40 | disposition home or self-care (01) ==
PROVIDERS: Emergency Medicine; Emergency Provider Nurse Practitioner Family; PCP Internal Medicine; Referring Provider Internal Medicine
DX: I10 Essential (primary) hypertension (principal); R50.9 Fever, unspecified; R05 Cough
CPT/HCPCS: 36415; 80053; 82550; 82553; 84484; 85025; 93005; 99284

== ENCOUNTER 2020-10-17 22:34 | Inpatient (IN) | payer OTHER, SELFPAY ==
[2020-10-17 22:35] VITALS: BP 200/97; PULSE 93; RESP 14; TEMP 36.9; O2SAT 95; BMI 26.4
[2020-10-17 23:09] LABS: Alanine Aminotransferase 113 IU/L (<50); BUN Creatinine Ratio 22.9 (6-22); Blood Urea Nitrogen 32 mg/dL (9-20); Calcium 9.2 mg/dL (8.4-10.2); Carbon Dioxide 25 mmol/L (22-32); Chloride 103 mmol/L (98-107); Estimated Glomerular Filt Rate 48.8 mL/min (>60); Glucose 144 mg/dL (80-110); Sodium 137 mmol/L (137-145)
[2020-10-17 23:10] LABS: Add Manual Diff / Slide Review NO; Basophils Absolute Auto 0 /uL (0-100); Basophils Percent Auto 0.2 % (0-2); Eosinophils Absolute Auto 0 /uL (0-450); Eosinophils Percent Auto 0.3 % (2-4); Hematocrit 30.7 % (41-53); Hemoglobin 10.5 g/dL (13.5-17.5); Lymphocytes Absolute Auto 500 /uL (1100-4500); Lymphocytes Percent Auto 13.3 % (25-40); Mean Corpuscular HGB Conc 34.2 % (30-36); Mean Corpuscular Hemoglobin 35.3 PG (26-34); Mean Corpuscular Volume 103.3 fL (80-100); Monocytes Absolute Auto 1100 /uL (0-900); Monocytes Percent Auto 28.8 % (3-14); Neutrophils Absolute Auto 2300 /uL (1500-7000); Neutrophils Percent Auto 57.4 % (50-75); Platelet Count 144 X10^3/uL (150-400); Red Blood Cell Count 2.98 X10^6/uL (4.5-5.9); Red Cell Distribution Width 13.9 % (11.6-14.8)
[2020-10-17 23:13] LABS: Potassium 4.7 mmol/L (3.4-5.1)
[2020-10-17 23:14] LABS: Aspartate Aminotransferase 153 IU/L (17-59)
[2020-10-17 23:15] LABS: Alkaline Phosphatase 146 U/L (38-126)
--- NOTE | 2020-10-17 23:20 | ED_ITS ---
HPI - General Adult General Chief complaint: Abdominal Pain Stated complaint: ABD Pain Time Seen by Provider: 10/17/20 22:49 Source: patient and EMS Mode of arrival: EMS Limitations: no limitations History of Present Illness HPI narrative: Patient is an 80-year-old male brought in by EMS for evaluation of abdominal discomfort. He has had some nausea today. No fevers. Last bowel movement was yesterday. Has also had a poor appetite. No fevers. No prior abdominal surgeries. No urinary symptoms. No chest pain. No shortness of breath. Has not tried anything for symptoms prior to arrival. Related Data Home Medications Medication Instructions Recorded Confirmed multivitamin (Multiple Vitamins) 1 tab PO QDAY #0 07/05/17 aspirin 81 mg tablet,delayed 81 mg PO BID 08/04/17 08/04/17 release gabapentin 100 mg capsule 100 mg PO DAILY 08/04/17 08/04/17 gabapentin 100 mg capsule 300 mg PO BEDTIME 08/04/17 08/04/17 lisinopril 5 mg tablet 5 mg PO DAILY 08/04/17 08/04/17 tamsulosin 0.4 mg capsule (Flomax) 0.4 mg PO DAILY 08/04/17 08/04/17 lisinopril 20 tab 07/18/19 mg-hydrochlorothiazide 25 mg tablet Allergies Allergy/AdvReac Type Severity Reaction Status Date / Time No Known Drug Allergies Allergy Verified 11/19/18 22:49 Review of Systems Constitutional Constitutional: Denies fever(s) Eyes Eyes: Reports system reviewed and no additional complaints, except as documented ENT Ears, Nose, Mouth, and Throat: Reports system reviewed and no additional complaints, except as documented Cardiovascular Cardiovascular: Denies chest pain and Denies dyspnea Respiratory Respiratory: Denies dyspnea Gastrointestinal Gastrointestinal: Reports as per HPI Genitourinary Genitourinary: Denies dysuria Musculoskeletal Musculoskeletal: Reports system reviewed and no additional complaints, except as documented Integumentary/Breasts Skin/Breast: Reports system reviewed and no additional complaints, except as documented Neurologic Neurologic: Reports system reviewed and no additional complaints, except as documented Psychiatric Psychiatric: Reports system reviewed and no additional complaints, except as documented Hematologic/Lymphatic On Anticoagulants: No Allergic/Immunologic Allergic/Immunologic: Reports system reviewed and no additional complaints, except as documented Patient History Medical History BPH (benign prostatic hyperplasia) Hypertension Pancytopenia Social History marital status: Smoking Status: Never smoker Smoking Status: Never smoker alcohol intake frequency: 0-2 drinks per day Substance Use Type: marijuana Exam Initial Vital Signs Initial Vital Signs: Vital Signs Temperature 98.5 F 10/17/20 22:35 Pulse Rate 93 H 10/17/20 22:35 Respiratory Rate 14 10/17/20 22:35 Blood Pressure 200/97 H 10/17/20 22:35 Pulse Oximetry 95 10/17/20 22:35 Const General: cooperative and comfortable HENMT Head: normal to inspection and normocephalic Eyes General: appearance normal, both eyes and all related structures Resp Effort & Inspection: normal respiratory effort Auscultation: clear to auscultation bilaterally Cardio Rate: regular rate Rhythm: regular rhythm GI Inspection: normal to inspection Palpation: soft, No firm and tender (Generalized abdominal tenderness) Back/Spine/Pelvis Back: No CVA tenderness Skin General: no rashes or lesions noted Neuro General: patient alert, patient awake and moves all extremities Extrem General: normal to inspection and capillary refill normal Psych Appearance: grossly normal and well kempt Scores GCS K[place] coma scale eye opening: Spontaneous [place] coma scale verbal response: Orientated [place] coma scale motor response: Obey commands [place] coma scale total score: 15 Course Orders Ordered: ED Orders 10/17/20 22:50 Complete Blood Count AUTO DIFF Stat Comprehensive Metabolic Panel Stat Lipase Stat 10/17/20 22:55 EKG-12 Lead Stat 10/17/20 23:21 CT abdomen pelvis w con Stat 10/17/20 23:39 US abdomen limited Stat 10/18/20 00:41 Gamma Glutamyl Transpeptidase Stat 10/18/20 02:00 Consult to General Surgery Stat 10/18/20 02:10 COVID19 - ADMIT ([facility] [employer] swab/PCR) Stat Discontinued Medications Sodium Chloride (Normal Saline 0.9%) 1,000 mls @ 1,000 mls/hr IV BOLUS ONE Stop: 10/18/20 00:19 Last Infusion: 10/18/20 00:25 Dose: 0 mls/hr Documented by: Admin: 10/17/20 23:29 Dose: 1,000 mls/hr Documented by: ATAYLEV Piperacillin Sod/Tazobactam (Sod 4.5 gm/ Sodium Chloride) 100 mls @ 200 mls/hr IV NOW ONE Stop: 10/18/20 00:43 Last Infusion: 10/18/20 01:38 Dose: 0 mls/hr Documented by: Admin: 10/18/20 00:59 Dose: 200 mls/hr Documented by: PASHA Morphine Sulfate (Morphine 4 Mg/Ml Inj) 4 mg IV NOW ONE Stop: 10/17/20 23:21 Last Admin: 10/17/20 23:29 Dose: 4 mg Documented by: ERIKA Morphine Sulfate (Morphine 4 Mg/Ml Inj) 4 mg IV NOW ONE Stop: 10/18/20 00:30 Last Admin: 10/18/20 00:36 Dose: 4 mg Documented by: PASHA Ondansetron HCl (Ondansetron 4 Mg/2 Ml Inj) 4 mg IV NOW ONE Stop: 10/17/20 23:21 Last Admin: 10/17/20 23:29 Dose: 4 mg Documented by: ERIKA Ondansetron HCl (Ondansetron 4 Mg/2 Ml Inj) 4 mg IV NOW ONE Stop: 10/18/20 00:21 Last Admin: 10/18/20 00:24 Dose: 4 mg Documented by: PASHA Vital Signs Vital signs: Vital Signs - 8 hr 10/17/20 22:35 10/17/20 23:37 10/18/20 00:00 Temperature 98.5 F Pulse Rate 93 H 76 79 Respiratory Rate 14 Blood Pressure 200/97 H Pulse Oximetry 95 93 96 10/18/20 00:30 10/18/20 01:00 10/18/20 01:24 Temperature Pulse Rate 103 H 75 75 Respiratory Rate Blood Pressure Pulse Oximetry 96 99 96 10/18/20 01:25 10/18/20 01:30 Temperature Pulse Rate Respiratory Rate Blood Pressure 149/70 H 159/77 H Pulse Oximetry Medical Decision Making Medical Records Medical records reviewed: Yes I reviewed the patient's medical records. Lab Data Lab results reviewed: Yes I reviewed the patient's lab results. Result diagrams: 10/17/20 22:50 10/17/20 22:50 Labs: Lab Results 10/17/20 10/17/20 10/17/20 Range/Units 22:50 22:50 22:50 WBC 4.0 L (4.5-11.0) X10^3/uL RBC 2.98 L (4.5-5.9) X10^6/uL Hgb 10.5 L (13.5-17.5) g/dL Hct 30.7 L (41-53) % MCV 103.3 H (80-100) fL MCH 35.3 H (26-34) PG MCHC 34.2 (30-36) % RDW 13.9 (11.6-14.8) % Plt Count 144 L (150-400) X10^3/uL Neut % (Auto) 57.4 (50-75) % Lymph % (Auto) 13.3 L (25-40) % Stephens % (Auto) 28.8 H (3-14) % Eos % (Auto) 0.3 L (2-4) % Baso % (Auto) 0.2 (0-2) % Neut # (Auto) 2300 (3516-6467) /uL Lymph # (Auto) 500 L (9122-2814) /uL Stephens # (Auto) 1100 H (0-900) /uL Eos # (Auto) 0 (0-450) /uL Baso # (Auto) 0 (0-100) /uL Sodium 137 (137-145) mmol/L Potassium 4.7 (3.4-5.1) mmol/L Chloride 103 (98-107) mmol/L Carbon Dioxide 25 (22-32) mmol/L BUN 32 H (9-20) mg/dL Creatinine 1.40 H (0.66-1.25) mg/dL Estimated GFR 48.8 L (>60) mL/min BUN/Creatinine Ratio 22.9 H (6-22) Glucose 144 H (80-110) mg/dL Calcium 9.2 (8.4-10.2) mg/dL Total Bilirubin 2.0 H (0.2-1.3) mg/dL GGT 158 H (15-73) U/L AST 153 H (17-59) IU/L ALT 113 H (<50) IU/L Alkaline Phosphatase 146 H (38-126) U/L Total Protein 8.0 (6.3-8.2) g/dL Albumin 4.0 (3.5-5.0) g/dL Globulin 4.0 (1.7-4.1) g/dL Albumin/Globulin Ratio 1.0 (1.0-2.8) Lipase 2357 H (23-300) U/L Imaging Data CT scan - abdomen/pelvis: Radiologist's Impression: Moderate partial small-bowel obstruction mild to distal jejunum Pericholecystic inflammatory stranding with intrahepatic biliary dilation. Question acute cholecystitis Gastric pyloric wall and duodenal wall thickening and adjacent stranding. Question duodenitis and/or gastritis Small volume ascites abdomen and pelvis US - abdomen: Radiologist's Impression: Cholelithiasis and gallbladder sludge with wall thickening probable cholecystitis 1.2 cm nonmobile nonshadowing abnormality medial gallbladder wall. Question follow-up it here and sludge or mass Hepatomegaly with fatty infiltration of liver ECG Data Attestation: I personally reviewed and interpreted this ECG as follows: Interpretation: Sinus rhythm Ventricular rate is 71 Normal axis Normal QRS Normal QTC No ST T wave changes Occasional PAC MDM Narrative Medical decision making narrative: Patient is nontoxic. Vital signs are unremarkable. CT scan and labs and right upper quadrant ultrasound concerning for cholecystitis/gallstone pancreatitis. The reported small bowel obstruction most likely related to the inflammation from the gallbladder pathology. He was given Zosyn here in the emergency department. Discussed the case with Dr. Espino on-call with General surgery who stated that patient should be admitted to the medicine service with General surgery consultation until his pancreatitis has resolved. Discussed the case with CHAS colon [facility] provider who will admit for further evaluation and treatment. I did discuss the findings of the radiologic studies and labs with the patient. We did discuss the admission. He expressed understanding agreement. Discharge Plan Departure Patient Disposition: Admitted As Inpatient Clinical Impression: Acute cholecystitis, Acute pancreatitis, Bowel obstruction Admit Date/Time: 10/18/20 02:08 Admit Provider: Luanne Colon
--- NOTE | 2020-10-17 23:21 | DI.CT.S_ITS ---
PROCEDURE: CT ABDOMEN PELVIS W CON INDICATIONS: Generalized abdominal pain TECHNIQUE: After the administration of IV contrast, axial sections were acquired from the lung bases to the pubic symphysis. Coronal and sagittal reformats were performed. For radiation dose reduction, the following was used: automated exposure control, adjustment of mA and/or kV according to patient size. COMPARISON: [facility], , US ABDOMEN LIMITED, 10/18/2020, 0:40. FINDINGS: Image quality: Excellent. Lung bases: Unremarkable. Heart: No significant findings. Moderate coronary artery calcification can be seen. ABDOMEN: Liver: Unremarkable. Gallbladder: Mild gallbladder wall thickening can be seen at the level of the fundus, with mild pericholecystic fluid. Biliary ducts: Unremarkable. Pancreas: There is focal inflammatory change seen involving the head of the pancreas. Spleen: Unremarkable. Adrenal Glands: Unremarkable. Kidneys and Ureters: Along the anterior aspect of the right kidney, there is an apparent enhancing nodule that measures 2 cm. Multiple cysts are seen elsewhere, including hyperdense cysts. Numerous areas of parenchymal calcification can be seen. There is no hydronephrosis. Stomach and Bowel: There is focal irregularity with surrounding inflammatory change seen involving the gastric pylorus and the proximal duodenum. No other areas of focal bowel abnormality can be seen. Prominent loops of proximal small bowel can be seen, measuring up to 2.7 cm. The cecum is mildly high-riding. Peritoneum: Mild ascites is seen involving the right upper quadrant. No free air. Ventral Wall: No hernia. Abdominal Nodes: No retroperitoneal or mesenteric adenopathy by size criteria. Vessels: Aorta and inferior vena cava are normal in size. Atherosclerotic calcification is noted. PELVIS: Pelvic Organs: Unremarkable. Bladder: Unremarkable. Pelvic Nodes: No enlarged lymph nodes. Miscellaneous: Bilateral fat containing inguinal hernias are seen, left larger than right. Bones: Focal lower lumbar spine degenerative changes are seen. Milder degenerative changes are seen elsewhere. IMPRESSION: Focal inflammatory change can be seen involving the gastric pylorus, proximal duodenum, and the head of the pancreas. Differential diagnosis includes gastritis/duodenitis versus pancreatitis. Right upper quadrant ascites is seen, with thickening of the fundus of the gallbladder. Differential diagnosis includes cholecystitis versus reactive inflammatory change. Prominent loops of proximal small bowel can be seen that measure up to 2.7 cm. Differential diagnosis includes proximal ileus versus partial bowel obstruction. There is a 2 cm enhancing nodule along the anterior aspect of the left kidney. Differential diagnosis includes a true mass versus unusual appearing renal parenchyma. When clinically appropriate, please consider a dedicated renal mass protocol CT for further evaluation. Numerous bilateral renal cysts are seen, including hyperdense cysts. Numerous areas kidney parenchymal calcification can be seen. Incidental note is made of: Moderate coronary artery calcification Fat containing bilateral inguinal hernias Note: No significant discrepancy from the preliminary report. Dictated by: Cornel Beltran M.D. on 10/18/2020 at 7:26 Approved by: Cornel Beltran M.D. on 10/18/2020 at 7:36
[2020-10-17 23:27] LABS: HEMOLYSIS 112 (0-50); Lipase 2357 U/L (23-300)
[2020-10-17] MEDS: ONDANSETRON 4 MG/2 ML INJ IV (23:29)
[2020-10-17] MEDS: SODIUM CHLORIDE 0.9% 1,000 ML 1000 ML IV (23:29)
[2020-10-17] MEDS: MORPHINE 4 MG/ML INJ IV (23:29)
[2020-10-17 23:37] VITALS: PULSE 76; O2SAT 93
--- NOTE | 2020-10-17 23:39 | DI.US.S_ITS ---
PROCEDURE: US ABDOMEN LIMITED INDICATIONS: RULE OUT GALLBLADDER PATHOLOGY TECHNIQUE: Real-time focused scanning was performed of the abdomen, with image documentation. COMPARISON: [facility], CT, CT ABDOMEN PELVIS W CON, 10/17/2020, 23:30. FINDINGS: The liver is prominent in size, measuring 19.1 cm. The liver demonstrates overall normal echogenicity, without focal lesions. Within the gallbladder fundus, there is a soft tissue focus seen measuring up to 12 mm. The gallbladder wall is thickened at 4 mm. There is a potential gallstone. No specific pericholecystic fluid is seen. The sonographic Ryan sign is negative. There is no biliary dilatation, the common bile duct measures 4 mm. Pancreas is not well seen on this study. A small amount of right upper quadrant ascites is seen. Scanning is limited by bowel gas. Cysts are seen involving the right kidney. IMPRESSION: Potential gallstone with gallbladder wall thickening. Please consider cholecystitis. Soft tissue focus seen involving the gallbladder wall, which is likely related to a polyp. Differential diagnosis would also include mass or adherent sludge, however. Right upper quadrant ascites is seen. Note: No significant discrepancy from the preliminary report. Dictated by: Cornel Beltran M.D. on 10/18/2020 at 7:37 Approved by: Cornel Beltran M.D. on 10/18/2020 at 7:40
[2020-10-18] VITALS (13 sets, daily range): BP systolic 142–161; BP diastolic 67–89; PULSE 71–103; RESP 16–17; TEMP 36.4–37.1; O2SAT 92–99; BMI 24.7
[2020-10-18] MEDS: ONDANSETRON 4 MG/2 ML INJ IV (00:24)
[2020-10-18] MEDS: MORPHINE 4 MG/ML INJ IV ×2 (00:36→04:51)
[2020-10-18 00:55] LABS: Gamma Glutamyl Transpeptidase 158 U/L (15-73)
[2020-10-18] MEDS: PIPERACILLIN/TAZO 4.5 GM in SODIUM CHLORIDE 0.9% 100 ML 200 ML IV (00:59)
--- NOTE | 2020-10-18 02:36 | P.HP_ITS ---
History of Present Illness History of Present Illness Date Patient Seen: 10/18/20 Time Patient Seen: 03:23 Chief complaint: ABD Pain Narrative: Jonel Ochoa is an 80 y.o. male with hypertension and benign prostatic hypertrophy was in his usual state of health when at approximately 2200 he woke up with abdominal pain. He vomited into a basin in his kitchen then was dry heaving after that. His who has tender health took his temparature and it was normal. He stated he felt very bad and may have caught breakthrough COVID- 19, but described vague discomfort and central lower abdominal pain that seemed to radiate inward. He stated his said she would bring him to the hospital in the am, but he stated he felt he needed to be seen sooner. Denies cough, shortness of breath, chest pain, diarrhea or constipation. Stated his last bowel movement was on 10/17. Both a CT of the abdomen and pelvis and a ultrasound were done in the ED. Findings of the CT indicated ?pericholecystic inflammatory stranding noted, intrahepatic biliary distention, likely representing acute cholecystitis. It also found inflammatory stranding and ascites noted around the duodenum with duodenal wall thickening and pyloric wall thickening questioning whether it was gastritis or duodenitis. It did not identify any pancreatic abnormalities. There were renal cysts and calcifications and a question of a moderate small bowel distension mid abdomen to the right lower quadrant concluding a moderate partial small-bowel obstruction mid to distal jejunum. The ultrasound read concluded cholelithiasis and gallbladder sludge with wall thickening likely cholecystitis and a 1.2 cm non mobile nonshadowing abnormality of the medial gallbladder wall questioning a polyp, adherent sludge or mass. It also noted hepatomegaly with fatty infiltration of the liver. EKG indicated sinus rhythm with PACs. Patient was afebrile, blood pressure 159/89, heart rate 81, respiratory rate 16, oxygen saturation 99% on room air, he weighs 83 kg with a BMI of 24.8. WBC is 4.0 RBC 2.98 hemoglobin 10.5 hematocrit 30.7 platelet count 144. His creatinine is 1.4 which is not normal for him and an EGFR of 48.8, glucose 144, total bilirubin 2.0, GGT was elevated at 158 AST 153 ALT 113 alk-ph os 146 lipase was markedly elevated at 2,357, procalcitonin was 0.5 and COVID 19 PCR was negative. Patient History Medical History (Updated 10/18/20 @ 03:36 by JAMES Tony) Acute cholecystitis Acute pancreatitis Bowel obstruction BPH (benign prostatic hyperplasia) Hypertension Pancytopenia Family & Social History Family History (Updated 10/18/20 @ 03:37 by JAMES Tony) Mother Old age Father Myocardial infarction Safety & Behavioral: Feels Safe in Current Yes Environment Tobacco & Substance use: Smoking Status Never smoker alcohol intake frequency 1 beer/day, stated previously drank more Substance Use Type marijuana 1 bowl/day Meds Home Medications and Allergies Home Medications Medication Instructions Recorded Confirmed Type multivitamin (Multiple Vitamins) 1 tab PO QDAY #0 07/05/17 History aspirin 81 mg tablet,delayed 81 mg PO BID 08/04/17 08/04/17 History release gabapentin 100 mg capsule 100 mg PO DAILY 08/04/17 08/04/17 History gabapentin 100 mg capsule 300 mg PO BEDTIME 08/04/17 08/04/17 History lisinopril 5 mg tablet 5 mg PO DAILY 08/04/17 08/04/17 History tamsulosin 0.4 mg capsule (Flomax) 0.4 mg PO DAILY 08/04/17 08/04/17 History lisinopril 20 tab 07/18/19 History mg-hydrochlorothiazide 25 mg tablet Allergies Allergy/AdvReac Type Severity Reaction Status Date / Time No Known Drug Allergies Allergy Verified 11/19/18 22:49 Review of Systems Review of Systems ROS: Yes All systems reviewed with the patient and are negative except as otherwise documented Exam Vital Signs (past 8 hours): - 10/17/20 22:35 10/17/20 23:37 10/18/20 00:00 Temperature 98.5 F Pulse Rate 93 H 76 79 Respiratory Rate 14 Blood Pressure 200/97 H Pulse Oximetry 95 93 96 10/18/20 00:30 10/18/20 01:00 10/18/20 01:24 Temperature Pulse Rate 103 H 75 75 Respiratory Rate Blood Pressure Pulse Oximetry 96 99 96 10/18/20 01:25 10/18/20 01:30 Temperature Pulse Rate Respiratory Rate Blood Pressure 149/70 H 159/77 H Pulse Oximetry Oxygen Delivery Method Room Air Narrative Exam Narrative: Gen: Alert, oriented, well- 80 y.o. male, somewhat disheveled HEENT: normocephalic, atraumatic, conjunctiva clear, sclera non-icteric, oral mucosa pink and moist Neck: supple, full ROM Resp: Lungs CTA, non-labored breathing CV: RRR, no murmur or rubs Abd: soft, diffusely tender, hypoactive BTs Skin: no lesions or rashes, dry and intact Neuro: Hard of hearing, alert and oriented X 4 w/no focal deficits Extremities: moves all 4 extremities, is ambulatory, negative Lee?s sign Psyche: pleasant, normal mood and affect. Objective ECG Impression: NSR w/PACs Labs Result Diagrams: 10/17/20 22:50 10/17/20 22:50 Labs: Laboratory Results - last 24 hr 10/17/20 10/17/20 10/17/20 22:50 22:50 22:50 WBC 4.0 L RBC 2.98 L Hgb 10.5 L Hct 30.7 L MCV 103.3 H MCH 35.3 H MCHC 34.2 RDW 13.9 Plt Count 144 L Neut % (Auto) 57.4 Lymph % (Auto) 13.3 L Ste[place] % (Auto) 28.8 H Eos % (Auto) 0.3 L Baso % (Auto) 0.2 Neut # (Auto) 2300 Lymph # (Auto) 500 L Ste[place]s # (Auto) 1100 H Eos # (Auto) 0 Baso # (Auto) 0 Sodium 137 Potassium 4.7 Chloride 103 Carbon Dioxide 25 BUN 32 H Creatinine 1.40 H Estimated GFR 48.8 L BUN/Creatinine Ratio 22.9 H Glucose 144 H Calcium 9.2 Total Bilirubin 2.0 H GGT 158 H AST 153 H ALT 113 H Alkaline Phosphatase 146 H Total Protein 8.0 Albumin 4.0 Globulin 4.0 Albumin/Globulin Ratio 1.0 Lipase 2357 H Assessment & Plan Assessment & Plan narrative: Jonel Ochoa will be admitted to the inpatient service for further evaluation, treatment and management of an acute cholecystitis. 1. Acute cholecystitis, present on admission * IV piptaz was initiated in the ED, next dose of 3.375 grams q 8 hours at 10:00 * Dr. Espino, General surgery consulting * NPO except ice chips * IVF NS at 100 ml/hour 2. Acute pancreatitis in the setting of acute cholecystitis * See #1 * Pain control with IV morphine 3. Partial small bowel obstruction * NPO 4. Acute kidney injury, unknown if superimposed on chronic * Holding home gio-inhibitor 5. Essential hypertension, suboptimally controlled, likely in the setting of pain * IV lopressor * Gio-inhibitor contraindicated in the setting of an KATE 6. BPH, chronic * Continue home dose of tamsulosin 0.4 mg po daily VTE Prophylaxis: Wells risk score 0 Bilateral SCDs Patient is admitted to the inpatient service due to the severity of disease, risks of further disease progression and this stay is expected to exceed 2 midnights. FEN: IV fluids: NS at 100 ml/hour, diet: NPO, labs: CBC, C/BMP, liver enzymes, Mag, PT/INR Code status: DNR, okay to intubate as discussed with the patient who identifies Manasa Ochoa, as his surrogate and POA. Anticipated dispo: probable discharge to home. I have utilized all available immediate resources (patient, family member, internal and external medical records) to obtain, update, or review the patient?s current home medications. COVID-19 COVID-19 status: Negative Result date/Date tested (Pos, Neg/Pending): 10/18/20 Scores Wells' Criteria for PE Clinical signs and symptoms of DVT: No PE is #1 Dx or equally likely: No Heart rate > 100: No Immobilization at least 3 days or surg in previous 4 weeks: No History of PE or DVT: No Hemoptysis: No Malignancy w/Treatment within 6 months or palliative: No Wells' PE Score total: 0 Quality VTE Deep Vein Thrombosis/Pulmonary Embolism Present on Admission: No MIPS - Admit I confirm the patient?s Advance Care Plan is present, Code status is documented, Surrogate decision maker is in patient?s record [If Yes, STOP here]: Yes
[2020-10-18 02:50] LABS: Triglycerides 119 mg/dL (35-150)
[2020-10-18 02:58] LABS: COVID19 - ADMIT (NP swab/PCR) Negative (Negative)
[2020-10-18] MEDS: SODIUM CHLORIDE 0.9% 1,000 ML 100 ML IV ×2 (03:06→15:31)
[2020-10-18 03:17] LABS: Hemoglobin A1C% w Est Avg Glu 5.8 % (4.0-6.0)
[2020-10-18 05:50] LABS: INR 1.2 (0.9-1.3); Prothrombin Time 13.5 SECONDS (10.1-12.7)
[2020-10-18 05:53] LABS: Hematocrit 27.6 % (41-53); Hemoglobin 9.5 g/dL (13.5-17.5); Mean Corpuscular HGB Conc 34.5 % (30-36); Mean Corpuscular Hemoglobin 35.6 PG (26-34); Platelet Count 121 X10^3/uL (150-400); Red Blood Cell Count 2.68 X10^6/uL (4.5-5.9)
[2020-10-18 05:56] LABS: Alanine Aminotransferase 114 IU/L (<50); Albumin 3.3 g/dL (3.5-5.0); Alkaline Phosphatase 129 U/L (38-126); Aspartate Aminotransferase 131 IU/L (17-59); BUN Creatinine Ratio 22.7 (6-22); Bilirubin Total 1.3 mg/dL (0.2-1.3); Bilirubin Unconjugated 0.8 mg/dL (0.0-1.1); Blood Urea Nitrogen 29 mg/dL (9-20); Calcium 8.6 mg/dL (8.4-10.2); Carbon Dioxide 26 mmol/L (22-32); Chloride 106 mmol/L (98-107); Estimated Glomerular Filt Rate 54.1 mL/min (>60); Globulin 3.4 g/dL (1.7-4.1); Glucose 114 mg/dL (80-110); HEMOLYSIS < 15 (0-50); Magnesium 1.6 mg/dL (1.6-2.3); Sodium 138 mmol/L (137-145); Total Protein 6.7 g/dL (6.3-8.2)
[2020-10-18 05:57] LABS: Add Manual Diff / Slide Review YES
[2020-10-18 06:15] LABS: Neutrophils Absolute Manual 1880 /uL (3000-5900); Total Cells Counted 100
[2020-10-18 06:16] LABS: RBC Morphology Normal Morphology
[2020-10-18 06:17] LABS: Platelet Morphology Comment FEW GIANT PLATELETS
--- NOTE | 2020-10-18 08:47 | DI.MRI.S_ITS ---
PROCEDURE: MR ABDOMEN WO CON INDICATIONS: concern for obstructing stone/cholangitis TECHNIQUE: Coronal HASTE through the abdomen, axial 2-D FLASH in- and [id number], and breath-hold T2 FSE with fat saturation through the biliary system and pancreas. Oblique coronal and axial thin-slice HASTE, radial thick-slab HASTE centered on the extrahepatic bile ducts. Intravenous secretin: Not requested. COMPARISON: [facility], US, US ABDOMEN LIMITED, 10/18/2020, 0:40. [facility], CT, CT ABDOMEN PELVIS W CON, 10/17/2020, 23:30. FINDINGS: Image quality: This examination is limited by involuntary motion artifact. Pancreas and biliary system: A few tiny filling defects can be seen within the gallbladder, which are attributed to gallstones. Focal fundal gallbladder wall thickening can be seen. No specific pericholecystic fluid can be seen. No intrahepatic biliary ductal dilatation is seen. No extrahepatic biliary ductal dilatation is seen. The common bile duct measures up to 4 mm. No ductal stones are seen. Pancreas is normal in morphology. A small amount of free fluid can be seen adjacent to the pancreas. Pancreatic duct is normal in caliber, without developmental anomalies. Other solid organs: Liver is normal in size. Within the liver, T2 hyperintense foci can be seen, which are most likely related to cysts. Spleen is normal in size. No adrenal nodules. Both kidneys are normal in size, without hydronephrosis. Numerous bilateral renal cysts are seen, with the majority demonstrating a simple appearance. However, areas of layering likely proteinaceous debris can be seen within several renal cysts. A likely hemorrhagic cyst can be seen along the anterior aspect of the left kidney that measures up to 1.8 cm, which demonstrates dark signal on T2 HASTE imaging, as on series 5, image 25. Nodes and vessels: No retroperitoneal or mesenteric adenopathy by size criteria. Aorta and inferior vena cava are normal in size. Bowel and peritoneum: Focal irregularity and wall thickening can be seen involving the duodenum. Mild right upper quadrant ascites is seen. Lung bases: No basal pleural effusions. Heart size is normal. Bones and soft tissues: No ventral hernias. Bone marrow is of normal overall signal. Age-appropriate bony degenerative changes are seen. IMPRESSION: No biliary dilatation is seen. No biliary ductal stones can be seen. Focal gallbladder wall thickening can be seen at the level of the fundus. A few small filling defects are seen within the gallbladder, which are attributed to gallstones. Abnormal wall thickening can be seen involving the duodenum. Please consider duodenitis. A small amount of free fluid can be seen adjacent to the pancreas. Please consider pancreatitis. Right upper quadrant ascites is seen. Numerous renal cysts are seen, including several that demonstrate likely layering proteinaceous debris. A likely hyperdense/hemorrhagic cyst can be seen along the anterior aspect of the left kidney that measures 1.8 cm. Dictated by: Cornel Beltran M.D. on 10/18/2020 at 11:56 Approved by: Cornel Beltran M.D. on 10/18/2020 at 12:03
[2020-10-18] MEDS: PIPERACILLIN/TAZO 3.375 GM in SODIUM CHLORIDE 0.9% 100 ML 25 ML IV ×2 (09:27→17:30)
[2020-10-18] MEDS: TAMSULOSIN 0.4 MG CAPSULE PO (09:27)
[2020-10-18] MEDS: ASPIRIN EC 81 MG TABLET PO ×2 (09:27→22:08)
--- NOTE | 2020-10-18 09:49 | PC.NURSE ---
Addendum entered by Shelli Benedict R.N. 10/18/20 13:15: Patient returned to floor, IV ABX restarted. Patient up to chair for clear liquid lunch, tolerating diet. Denies pain in abdomen with rest, endorses pain 3-5/10 with movement. Request to go back to bed at this time. Patient ambulating with SBA. Steady. Denies dizziness or lightheadedness. Call light in reach. Addendum entered by Shelli Benedict R.N. 10/18/20 12:16: Patient off unit for MRCP. Remained NPO leading up to transfer. Addendum entered by Shelli Benedict R.N. 10/18/20 11:17: Patient up to shower with aide assist, asked patient if he was in pain, patient denies pain at this time. Original Note: Patient resting in bed this AM, abdomen round, soft, patient endorses tenderness with palpation at midline. Reports last BM was 8/6, BS active x 4, remains NPO. 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 Voiding using urinal, SBA when OOB. L AC PIV patent, infusing NS@ 100cc, intermittent ABX, patient tolerating. VSS. Tele on. Calf SCD's bilateral remain on. Patient instructed to call before getting OOB. Verbalized understanding. Call light and belongings in reach.
--- NOTE | 2020-10-18 10:27 | PM.PN.1 ---
Subjective Subjective Date Patient Seen: 10/18/20 Time Patient Seen: 10:27 Interval history: complains of muscle spasms overnight, has not tried to move but is afraid to. Still dealing with significant pain. Counseled on weight bearing status recommended by orthopedic surgery. May need SNF based on limited mobility due to pain from multiple pelvic fractures, pending PT/OTed for MRCP today. General surgery is following for cholecystectomy, at some point prior to discharge most likely. Plan to continue NPO diet pending MRCP, continue IVF and antibiotics. Will consider clear liquids this evening. Exam Vital Signs (past 8 hours): - 10/18/20 02:30 10/18/20 02:50 10/18/20 08:43 Temperature 97.7 F 97.5 F L Pulse Rate 81 74 Respiratory Rate 16 16 Blood Pressure 156/78 H 159/89 H 161/82 H Pulse Oximetry 99 97 Oxygen Delivery Method Room Air Oxygen Flow Rate 0 Objective Labs Result Diagrams: 10/18/20 05:15 10/18/20 05:15 Labs: Laboratory Results - last 24 hr 10/17/20 10/17/20 10/17/20 22:50 22:50 22:50 WBC 4.0 L RBC 2.98 L Hgb 10.5 L Hct 30.7 L MCV 103.3 H MCH 35.3 H MCHC 34.2 RDW 13.9 Plt Count 144 L Neut % (Auto) 57.4 Lymph % (Auto) 13.3 L [place] % (Auto) 28.8 H Eos % (Auto) 0.3 L Baso % (Auto) 0.2 Neut # (Auto) 2300 Lymph # (Auto) 500 L [place] # (Auto) 1100 H Eos # (Auto) 0 Baso # (Auto) 0 Total Counted Seg Neutrophils % Band Neutrophils % Lymphocytes % (Manual) Monocytes % (Manual) Metamyelocytes % Neutrophils # (Manual) Plt Morphology Comment RBC Morphology PT INR Sodium 137 Potassium 4.7 Chloride 103 Carbon Dioxide 25 BUN 32 H Creatinine 1.40 H Estimated GFR 48.8 L BUN/Creatinine Ratio 22.9 H Glucose 144 H Hemoglobin A1c Calcium 9.2 Magnesium Total Bilirubin 2.0 H Conjugated Bilirubin Unconjugated Bilirubin GGT 158 H AST 153 H ALT 113 H Alkaline Phosphatase 146 H Total Protein 8.0 Albumin 4.0 Globulin 4.0 Albumin/Globulin Ratio 1.0 Triglycerides Lipase 2357 H Procalcitonin SARS-CoV-2 (PCR) 10/17/20 10/17/20 10/17/20 22:50 22:50 22:50 WBC RBC Hgb Hct MCV MCH MCHC RDW Plt Count Neut % (Auto) Lymph % (Auto) [place] % (Auto) Eos % (Auto) Baso % (Auto) Neut # (Auto) Lymph # (Auto) [place] # (Auto) Eos # (Auto) Baso # (Auto) Total Counted Seg Neutrophils % Band Neutrophils % Lymphocytes % (Manual) Monocytes % (Manual) Metamyelocytes % Neutrophils # (Manual) Plt Morphology Comment RBC Morphology PT INR Sodium Potassium Chloride Carbon Dioxide BUN Creatinine Estimated GFR BUN/Creatinine Ratio Glucose Hemoglobin A1c 5.8 Calcium Magnesium Total Bilirubin Conjugated Bilirubin Unconjugated Bilirubin GGT AST ALT Alkaline Phosphatase Total Protein Albumin Globulin Albumin/Globulin Ratio Triglycerides 119 Lipase Procalcitonin 0.50 SARS-CoV-2 (PCR) 10/18/20 10/18/20 10/18/20 02:10 05:15 05:15 WBC 4.0 L RBC 2.68 L Hgb 9.5 L Hct 27.6 L MCV 103.0 H MCH 35.6 H MCHC 34.5 RDW 14.0 Plt Count 121 L Neut % (Auto) Not Reportable Lymph % (Auto) Not Reportable [place] % (Auto) Not Reportable Eos % (Auto) Not Reportable Baso % (Auto) Not Reportable Neut # (Auto) Lymph # (Auto) Not Reportable [place] # (Auto) Not Reportable Eos # (Auto) Baso # (Auto) Not Reportable Total Counted 100 Seg Neutrophils % 41.0 Band Neutrophils % 6.0 Lymphocytes % (Manual) 20.0 L Monocytes % (Manual) 32.0 H Metamyelocytes % 1.0 H Neutrophils # (Manual) 1880 L Plt Morphology Comment Few giant platelets RBC Morphology Normal morphology PT 13.5 H INR 1.2 Sodium Potassium Chloride Carbon Dioxide BUN Creatinine Estimated GFR BUN/Creatinine Ratio Glucose Hemoglobin A1c Calcium Magnesium Total Bilirubin Conjugated Bilirubin Unconjugated Bilirubin GGT AST ALT Alkaline Phosphatase Total Protein Albumin Globulin Albumin/Globulin Ratio Triglycerides Lipase Procalcitonin SARS-CoV-2 (PCR) Negative 10/18/20 05:15 WBC RBC Hgb Hct MCV MCH MCHC RDW Plt Count Neut % (Auto) Lymph % (Auto) [place] % (Auto) Eos % (Auto) Baso % (Auto) Neut # (Auto) Lymph # (Auto) [place] # (Auto) Eos # (Auto) Baso # (Auto) Total Counted Seg Neutrophils % Band Neutrophils % Lymphocytes % (Manual) Monocytes % (Manual) Metamyelocytes % Neutrophils # (Manual) Plt Morphology Comment RBC Morphology PT INR Sodium 138 Potassium 4.0 Chloride 106 Carbon Dioxide 26 BUN 29 H Creatinine 1.28 H Estimated GFR 54.1 L BUN/Creatinine Ratio 22.7 H Glucose 114 H Hemoglobin A1c Calcium 8.6 Magnesium 1.6 Total Bilirubin 1.3 Conjugated Bilirubin 0.0 Unconjugated Bilirubin 0.8 GGT AST 131 H ALT 114 H Alkaline Phosphatase 129 H Total Protein 6.7 Albumin 3.3 L Globulin 3.4 Albumin/Globulin Ratio 1.0 Triglycerides Lipase Procalcitonin SARS-CoV-2 (PCR) [facility] Medical History (Updated 10/18/20 @ 03:36 by JAMES Tony) Acute cholecystitis Acute pancreatitis Bowel obstruction BPH (benign prostatic hyperplasia) Hypertension Pancytopenia Family History (Updated 10/18/20 @ 03:37 by JAMES Tony) Mother Old age Father Myocardial infarction Social History marital status: household members: spouse Smoking Status: Never smoker Quality VTE Deep Vein Thrombosis/Pulmonary Embolism Present on Admission: No
--- NOTE | 2020-10-18 11:08 | PM.CN ---
History of Present Illness Consult details Date Patient Seen: 10/18/20 Time Patient Seen: 09:30 Chief complaint: ABD Pain Reason for consult: gallstone pancreatitis Requesting provider: Lawrence Montejo Narrative: Sudden onset of abdominal pain of right upper and epigastric. Associated with nausea, no emesis. No Prior episode of this nature. Patient is hard of hearing and a marginal historian. Reports pain now in midepigatric area, sharp in nature, 10/21. Meds Home Medications and Allergies Home Medications Medication Instructions Recorded Confirmed Type multivitamin (Multiple Vitamins) 1 tab PO QDAY #0 07/05/17 10/18/20 History aspirin 81 mg tablet,delayed 81 mg PO BID 08/04/17 10/18/20 History release gabapentin 100 mg capsule 100 mg PO DAILY 08/04/17 10/18/20 History gabapentin 100 mg capsule 300 mg PO BEDTIME PRN 08/04/17 10/18/20 History lisinopril 5 mg tablet 5 mg PO DAILY 08/04/17 10/18/20 History tamsulosin 0.4 mg capsule (Flomax) 0.4 mg PO DAILY 08/04/17 10/18/20 History lisinopril 20 10 - 12.5 tab PO DAILY 07/18/19 10/18/20 History mg-hydrochlorothiazide 25 mg tablet Allergies Allergy/AdvReac Type Severity Reaction Status Date / Time No Known Drug Allergies Allergy Verified 11/19/18 22:49 Review of Systems Review of Systems ROS: Yes All systems reviewed with the patient and are negative except as otherwise documented Exam Vital Signs (past 8 hours): - 10/18/20 08:43 Temperature 97.5 F L Pulse Rate 74 Respiratory Rate 16 Blood Pressure 161/82 H Pulse Oximetry 97 Oxygen Delivery Method Room Air Oxygen Flow Rate 0 Const General: cooperative, in distress and disheveled Nutritional Appearance: thin Orientation: alert and oriented to person [facility] Head: normocephalic and atraumatic Nose: external nose normal and nares normal Eyes Sclera: sclerae normal Neck Neck: trachea midline Chest Chest: normal inspection of the chest Resp Effort & Inspection: normal respiratory effort and able to speak in complete sentences Cardio Rate: tachycardic Rhythm: regular rhythm GI Inspection: distended Palpation: soft Other: epigastric tenderness Skin General: atrophy, crusts, dry skin and ecchymosis Hair: brittle and general thinning Neuro General: patient alert and patient awake Speech: speech normal Extrem General: full ROM and muscle atrophy Psych Appearance: grossly normal and disheveled Mood: irritable mood Thought Process: normal Thought Content: normal Objective Labs Result Diagrams: 10/18/20 05:15 10/18/20 05:15 Labs: Laboratory Results - last 24 hr 10/17/20 10/17/20 10/17/20 22:50 22:50 22:50 WBC 4.0 L RBC 2.98 L Hgb 10.5 L Hct 30.7 L MCV 103.3 H MCH 35.3 H MCHC 34.2 RDW 13.9 Plt Count 144 L Neut % (Auto) 57.4 Lymph % (Auto) 13.3 L [place] % (Auto) 28.8 H Eos % (Auto) 0.3 L Baso % (Auto) 0.2 Neut # (Auto) 2300 Lymph # (Auto) 500 L [place] # (Auto) 1100 H Eos # (Auto) 0 Baso # (Auto) 0 Total Counted Seg Neutrophils % Band Neutrophils % Lymphocytes % (Manual) Monocytes % (Manual) Metamyelocytes % Neutrophils # (Manual) Plt Morphology Comment RBC Morphology PT INR Sodium 137 Potassium 4.7 Chloride 103 Carbon Dioxide 25 BUN 32 H Creatinine 1.40 H Estimated GFR 48.8 L BUN/Creatinine Ratio 22.9 H Glucose 144 H Hemoglobin A1c Calcium 9.2 Magnesium Total Bilirubin 2.0 H Conjugated Bilirubin Unconjugated Bilirubin GGT 158 H AST 153 H ALT 113 H Alkaline Phosphatase 146 H Total Protein 8.0 Albumin 4.0 Globulin 4.0 Albumin/Globulin Ratio 1.0 Triglycerides Lipase 2357 H Procalcitonin SARS-CoV-2 (PCR) 10/17/20 10/17/20 10/17/20 22:50 22:50 22:50 WBC RBC Hgb Hct MCV MCH MCHC RDW Plt Count Neut % (Auto) Lymph % (Auto) [place] % (Auto) Eos % (Auto) Baso % (Auto) Neut # (Auto) Lymph # (Auto) [place] # (Auto) Eos # (Auto) Baso # (Auto) Total Counted Seg Neutrophils % Band Neutrophils % Lymphocytes % (Manual) Monocytes % (Manual) Metamyelocytes % Neutrophils # (Manual) Plt Morphology Comment RBC Morphology PT INR Sodium Potassium Chloride Carbon Dioxide BUN Creatinine Estimated GFR BUN/Creatinine Ratio Glucose Hemoglobin A1c 5.8 Calcium Magnesium Total Bilirubin Conjugated Bilirubin Unconjugated Bilirubin GGT AST ALT Alkaline Phosphatase Total Protein Albumin Globulin Albumin/Globulin Ratio Triglycerides 119 Lipase Procalcitonin 0.50 SARS-CoV-2 (PCR) 10/18/20 10/18/20 10/18/20 02:10 05:15 05:15 WBC 4.0 L RBC 2.68 L Hgb 9.5 L Hct 27.6 L MCV 103.0 H MCH 35.6 H MCHC 34.5 RDW 14.0 Plt Count 121 L Neut % (Auto) Not Reportable Lymph % (Auto) Not Reportable [place] % (Auto) Not Reportable Eos % (Auto) Not Reportable Baso % (Auto) Not Reportable Neut # (Auto) Lymph # (Auto) Not Reportable [place] # (Auto) Not Reportable Eos # (Auto) Baso # (Auto) Not Reportable Total Counted 100 Seg Neutrophils % 41.0 Band Neutrophils % 6.0 Lymphocytes % (Manual) 20.0 L Monocytes % (Manual) 32.0 H Metamyelocytes % 1.0 H Neutrophils # (Manual) 1880 L Plt Morphology Comment Few giant platelets RBC Morphology Normal morphology PT 13.5 H INR 1.2 Sodium Potassium Chloride Carbon Dioxide BUN Creatinine Estimated GFR BUN/Creatinine Ratio Glucose Hemoglobin A1c Calcium Magnesium Total Bilirubin Conjugated Bilirubin Unconjugated Bilirubin GGT AST ALT Alkaline Phosphatase Total Protein Albumin Globulin Albumin/Globulin Ratio Triglycerides Lipase Procalcitonin SARS-CoV-2 (PCR) Negative 10/18/20 05:15 WBC RBC Hgb Hct MCV MCH MCHC RDW Plt Count Neut % (Auto) Lymph % (Auto) [place] % (Auto) Eos % (Auto) Baso % (Auto) Neut # (Auto) Lymph # (Auto) [place] # (Auto) Eos # (Auto) Baso # (Auto) Total Counted Seg Neutrophils % Band Neutrophils % Lymphocytes % (Manual) Monocytes % (Manual) Metamyelocytes % Neutrophils # (Manual) Plt Morphology Comment RBC Morphology PT INR Sodium 138 Potassium 4.0 Chloride 106 Carbon Dioxide 26 BUN 29 H Creatinine 1.28 H Estimated GFR 54.1 L BUN/Creatinine Ratio 22.7 H Glucose 114 H Hemoglobin A1c Calcium 8.6 Magnesium 1.6 Total Bilirubin 1.3 Conjugated Bilirubin 0.0 Unconjugated Bilirubin 0.8 GGT AST 131 H ALT 114 H Alkaline Phosphatase 129 H Total Protein 6.7 Albumin 3.3 L Globulin 3.4 Albumin/Globulin Ratio 1.0 Triglycerides Lipase Procalcitonin SARS-CoV-2 (PCR) Assessment & Plan Assessment & Plan narrative: gallstone pancreatitis. Possible associate cholecystitis but more c/w associated inflammation. SBO on CT is focal ileus related to the above. Pancytopenia is concerning. Plan: conservative management with recommendation of laparoscopic cholecystectomy once pancreatitis begins to resolve. COVID-19 COVID-19 status: Negative Time Spent With Patient Time with patient: Greater than 35 minutes
--- NOTE | 2020-10-18 14:41 | CM.IDA ---
Initial DCP Assessment Note Pt is an 80 yo male, resident of [facility], arrives w/abd pain. MRCP done today and according to Dr Espino's note: Consult note Plan: conservative management with recommendation of laparoscopic cholecystectomy once pancreatitis begins to resolve. Per addendum- Agree with MRCP and IV antibiotics with concerns for ascending cholangitis. PCP: Shandra Barrett Payer: Farrah COHEN Met w/patient today, introduced role. Patient is [place]. Patient lives w/spouse Manasa, patient states she is not well spouse has multiple medical co-morbidities, spouse is functionally indp. but requires assist w/all subscription clerk and does not leave the house. Patient states he manages everything for the household. Patient indp. at baseline and anticipates returning home, agreeable to HH if needed, is also willing to consider SNF rehab if it is recommended, and if his insurance will authorize. Will follow closely. If patient requires surgery, CM team can reassess DC needs post operatively. 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 No History Provided By Patient Prior Living Arrangements House Household Members spouse Type of transporation used prior to Drives own vehicle admit Independent with ADL's Yes Is patient alert and oriented? Yes Barriers to Discharge Yes Comment Spouse can not provide assistance, may have grandson that lives near that can asisst? Patient will consider SNF stay if recommended or needed Review Status In Process
--- NOTE | 2020-10-18 21:38 | PM.PN.1 ---
Exam Vital Signs (past 8 hours): - 10/18/20 13:56 10/18/20 15:47 10/18/20 19:35 Temperature 98.7 F 98.5 F 98.5 F Pulse Rate 82 78 71 Respiratory Rate 16 17 16 Blood Pressure 157/77 H 143/67 H 142/69 H Pulse Oximetry 96 93 92 Oxygen Delivery Method Room Air Oxygen Flow Rate 0 Objective Labs Result Diagrams: 10/18/20 05:15 10/18/20 05:15 Labs: Laboratory Results - last 24 hr 10/17/20 10/17/20 10/17/20 22:50 22:50 22:50 WBC 4.0 L RBC 2.98 L Hgb 10.5 L Hct 30.7 L MCV 103.3 H MCH 35.3 H MCHC 34.2 RDW 13.9 Plt Count 144 L Neut % (Auto) 57.4 Lymph % (Auto) 13.3 L [place] % (Auto) 28.8 H Eos % (Auto) 0.3 L Baso % (Auto) 0.2 Neut # (Auto) 2300 Lymph # (Auto) 500 L [place] # (Auto) 1100 H Eos # (Auto) 0 Baso # (Auto) 0 Total Counted Seg Neutrophils % Band Neutrophils % Lymphocytes % (Manual) Monocytes % (Manual) Metamyelocytes % Neutrophils # (Manual) Plt Morphology Comment RBC Morphology PT INR Sodium 137 Potassium 4.7 Chloride 103 Carbon Dioxide 25 BUN 32 H Creatinine 1.40 H Estimated GFR 48.8 L BUN/Creatinine Ratio 22.9 H Glucose 144 H Hemoglobin A1c Calcium 9.2 Magnesium Total Bilirubin 2.0 H Conjugated Bilirubin Unconjugated Bilirubin GGT 158 H AST 153 H ALT 113 H Alkaline Phosphatase 146 H Total Protein 8.0 Albumin 4.0 Globulin 4.0 Albumin/Globulin Ratio 1.0 Triglycerides Lipase 2357 H Procalcitonin SARS-CoV-2 (PCR) 10/17/20 10/17/20 10/17/20 22:50 22:50 22:50 WBC RBC Hgb Hct MCV MCH MCHC RDW Plt Count Neut % (Auto) Lymph % (Auto) [place] % (Auto) Eos % (Auto) Baso % (Auto) Neut # (Auto) Lymph # (Auto) [place] # (Auto) Eos # (Auto) Baso # (Auto) Total Counted Seg Neutrophils % Band Neutrophils % Lymphocytes % (Manual) Monocytes % (Manual) Metamyelocytes % Neutrophils # (Manual) Plt Morphology Comment RBC Morphology PT INR Sodium Potassium Chloride Carbon Dioxide BUN Creatinine Estimated GFR BUN/Creatinine Ratio Glucose Hemoglobin A1c 5.8 Calcium Magnesium Total Bilirubin Conjugated Bilirubin Unconjugated Bilirubin GGT AST ALT Alkaline Phosphatase Total Protein Albumin Globulin Albumin/Globulin Ratio Triglycerides 119 Lipase Procalcitonin 0.50 SARS-CoV-2 (PCR) 10/18/20 10/18/20 10/18/20 02:10 05:15 05:15 WBC 4.0 L RBC 2.68 L Hgb 9.5 L Hct 27.6 L MCV 103.0 H MCH 35.6 H MCHC 34.5 RDW 14.0 Plt Count 121 L Neut % (Auto) Not Reportable Lymph % (Auto) Not Reportable [place] % (Auto) Not Reportable Eos % (Auto) Not Reportable Baso % (Auto) Not Reportable Neut # (Auto) Lymph # (Auto) Not Reportable [place] # (Auto) Not Reportable Eos # (Auto) Baso # (Auto) Not Reportable Total Counted 100 Seg Neutrophils % 41.0 Band Neutrophils % 6.0 Lymphocytes % (Manual) 20.0 L Monocytes % (Manual) 32.0 H Metamyelocytes % 1.0 H Neutrophils # (Manual) 1880 L Plt Morphology Comment Few giant platelets RBC Morphology Normal morphology PT 13.5 H INR 1.2 Sodium Potassium Chloride Carbon Dioxide BUN Creatinine Estimated GFR BUN/Creatinine Ratio Glucose Hemoglobin A1c Calcium Magnesium Total Bilirubin Conjugated Bilirubin Unconjugated Bilirubin GGT AST ALT Alkaline Phosphatase Total Protein Albumin Globulin Albumin/Globulin Ratio Triglycerides Lipase Procalcitonin SARS-CoV-2 (PCR) Negative 10/18/20 05:15 WBC RBC Hgb Hct MCV MCH MCHC RDW Plt Count Neut % (Auto) Lymph % (Auto) [place] % (Auto) Eos % (Auto) Baso % (Auto) Neut # (Auto) Lymph # (Auto) [place] # (Auto) Eos # (Auto) Baso # (Auto) Total Counted Seg Neutrophils % Band Neutrophils % Lymphocytes % (Manual) Monocytes % (Manual) Metamyelocytes % Neutrophils # (Manual) Plt Morphology Comment RBC Morphology PT INR Sodium 138 Potassium 4.0 Chloride 106 Carbon Dioxide 26 BUN 29 H Creatinine 1.28 H Estimated GFR 54.1 L BUN/Creatinine Ratio 22.7 H Glucose 114 H Hemoglobin A1c Calcium 8.6 Magnesium 1.6 Total Bilirubin 1.3 Conjugated Bilirubin 0.0 Unconjugated Bilirubin 0.8 GGT AST 131 H ALT 114 H Alkaline Phosphatase 129 H Total Protein 6.7 Albumin 3.3 L Globulin 3.4 Albumin/Globulin Ratio 1.0 Triglycerides Lipase Procalcitonin SARS-CoV-2 (PCR) [facility] Medical History Acute cholecystitis Acute pancreatitis Bowel obstruction BPH (benign prostatic hyperplasia) Hypertension Pancytopenia Family History Mother Old age Father Myocardial infarction Social History marital status: household members: spouse Smoking Status: Never smoker Assessment & Plan Assessment & Plan narrative: repeated concerns of duodenal inflamation on radiographic evaluations and anemia on admit Starting Protonix 40 mg po BID Quality VTE Deep Vein Thrombosis/Pulmonary Embolism Present on Admission: No
[2020-10-18] MEDS: PANTOPRAZOLE DR 20 MG TABLET 40 MG PO (22:08)
[2020-10-19] VITALS (7 sets, daily range): BP systolic 132–144; BP diastolic 63–73; PULSE 56–78; RESP 14–18; TEMP 36.7–37.2; O2SAT 92–96
[2020-10-19] MEDS: SODIUM CHLORIDE 0.9% 1,000 ML 100 ML IV (01:38)
[2020-10-19] MEDS: PIPERACILLIN/TAZO 3.375 GM in SODIUM CHLORIDE 0.9% 100 ML 25 ML IV ×3 (01:39→18:01)
[2020-10-19 02:55] LABS: Hematocrit 25.4 % (41-53); Hemoglobin 8.7 g/dL (13.5-17.5); Mean Corpuscular HGB Conc 34.2 % (30-36); Mean Corpuscular Hemoglobin 35.3 PG (26-34); Mean Corpuscular Volume 103.2 fL (80-100); Platelet Count 100 X10^3/uL (150-400); Red Blood Cell Count 2.46 X10^6/uL (4.5-5.9); Red Cell Distribution Width 13.9 % (11.6-14.8); White Blood Cell Count 3.9 X10^3/uL (4.5-11.0)
[2020-10-19 02:58] LABS: Add Manual Diff / Slide Review YES
[2020-10-19 03:01] LABS: INR 1.4 (0.9-1.3)
[2020-10-19 03:05] LABS: Alanine Aminotransferase 75 IU/L (<50); Albumin 3.1 g/dL (3.5-5.0); Albumin Globulin Ratio 0.9 (1.0-2.8); Alkaline Phosphatase 118 U/L (38-126); Aspartate Aminotransferase 59 IU/L (17-59); BUN Creatinine Ratio 21.1 (6-22); Bilirubin Unconjugated 0.8 mg/dL (0.0-1.1); Blood Urea Nitrogen 23 mg/dL (9-20); Calcium 8.4 mg/dL (8.4-10.2); Carbon Dioxide 25 mmol/L (22-32); Chloride 106 mmol/L (98-107); Estimated Glomerular Filt Rate > 60.0 mL/min (>60); Globulin 3.4 g/dL (1.7-4.1); Glucose 86 mg/dL (80-110); HEMOLYSIS < 15 (0-50); Magnesium 1.5 mg/dL (1.6-2.3); Potassium 3.9 mmol/L (3.4-5.1); Sodium 136 mmol/L (137-145); Total Protein 6.5 g/dL (6.3-8.2)
[2020-10-19 03:09] LABS: C-Reactive Protein Quant 7.7 mg/dL (<1.0); Lipase 161 U/L (23-300)
[2020-10-19 03:12] LABS: Prealbumin 11.7 mg/dL (17.6-36.0)
[2020-10-19 03:13] LABS: NT-proBNP (BNP-Adult 18+) 972 pg/mL (<450)
[2020-10-19 03:17] LABS: Neutrophils Absolute Manual 1794 /uL (3000-5900); Total Cells Counted 100
[2020-10-19 03:19] LABS: Macrocytosis 1+
[2020-10-19 03:20] LABS: Platelet Morphology Comment FEW GIANT PLATELETS
[2020-10-19 05:20] LABS: WBC Urine None Seen (0-5/HPF)
[2020-10-19 05:21] LABS: Appearance Urine UA CLEAR; Bilirubin Urine UA NEGATIVE (NEGATIVE); Color Urine UA YELLOW; Glucose Urine UA NEGATIVE (Negative); Ketones Urine UA NEGATIVE (NEGATIVE); Leukocyte Esterase Urine UA NEGATIVE (NEGATIVE); Nitrite Urine UA NEGATIVE (Negative); Occult Blood Urine UA NEGATIVE (Negative); Protein Urine UA 1+ (Negative); Urobilinogen Urine UA 0.2 E.U./dL (0.2); pH Urine UA 5.5 (4.5-8.0)
[2020-10-19 05:30] LABS: Bacteria Urine Occasional (0-1); Culture Indicated Urine Cult Not Indicated; RBC Urine 0-1/HPF (0-5/HPF); Squamous Epithelial Cell Urine 0-1 /HPF (0-5/HPF)
[2020-10-19] MEDS: PANTOPRAZOLE DR 40 MG TABLET PO ×2 (06:43→22:21)
[2020-10-19] MEDS: TAMSULOSIN 0.4 MG CAPSULE PO (08:55)
[2020-10-19] MEDS: ASPIRIN EC 81 MG TABLET PO ×2 (08:55→22:21)
--- NOTE | 2020-10-19 10:57 | P.PN_ITS ---
Subjective Subjective Date Patient Seen: 10/19/20 Time Patient Seen: 10:57 Interval history: Feels well, He got a low fat diet this morning and states abdominal pain is minimal at this time. Denies nausea or vomiting. LFTs have normalized. Plan for cholecystectomy tomorrow per surgery. Exam Vital Signs (past 8 hours): - 10/19/20 05:21 10/19/20 07:32 Temperature 98.7 F 98.2 F Pulse Rate 72 69 Respiratory Rate 16 14 Blood Pressure 142/71 H 132/70 Pulse Oximetry 92 96 Oxygen Delivery Method Room Air Oxygen Flow Rate 0 Narrative Exam Narrative: Gen: Alert, oriented, well- 80 y.o. male, somewhat disheveled HEENT: normocephalic, atraumatic, conjunctiva clear, sclera non-icteric, oral mucosa pink and moist Neck: supple, full ROM Resp: Lungs CTA, non-labored breathing CV: RRR, no murmur or rubs Abd: soft, minimally tender near epigastrium, non-distended. Skin: no lesions or rashes, dry and intact Neuro: Hard of hearing, alert and oriented X 4 w/no focal deficits Extremities: moves all 4 extremities, is ambulatory, negative Lee?s sign Psyche: pleasant, normal mood and affect. Objective Labs Result Diagrams: 10/19/20 02:41 10/19/20 02:41 Labs: Laboratory Results - last 24 hr 10/19/20 10/19/20 10/19/20 02:41 02:41 02:41 WBC 3.9 L RBC 2.46 L Hgb 8.7 L Hct 25.4 L MCV 103.2 H MCH 35.3 H MCHC 34.2 RDW 13.9 Plt Count 100 L Neut % (Auto) Not Reportable Lymph % (Auto) Not Reportable [place] % (Auto) Not Reportable Eos % (Auto) Not Reportable Baso % (Auto) Not Reportable Lymph # (Auto) Not Reportable [place] # (Auto) Not Reportable Baso # (Auto) Not Reportable Total Counted 100 Seg Neutrophils % 40.0 Band Neutrophils % 6.0 Lymphocytes % (Manual) 22.0 L Atypical Lymphs % 1.0 H Monocytes % (Manual) 30.0 H Metamyelocytes % 1.0 H Neutrophils # (Manual) 1794 L Plt Morphology Comment Few giant platelets RBC Morphology See below Macrocytosis 1+ H PT 16.0 H INR 1.4 H Sodium 136 L Potassium 3.9 Chloride 106 Carbon Dioxide 25 BUN 23 H Creatinine 1.09 Estimated GFR > 60.0 BUN/Creatinine Ratio 21.1 Glucose 86 Calcium 8.4 Magnesium 1.5 L Total Bilirubin 1.0 Conjugated Bilirubin 0.0 Unconjugated Bilirubin 0.8 AST 59 ALT 75 H Alkaline Phosphatase 118 C-Reactive Protein NT-Pro-B Natriuret Pep Total Protein 6.5 Albumin 3.1 L Globulin 3.4 Albumin/Globulin Ratio 0.9 L Prealbumin Lipase Urine Color Urine Appearance Urine pH Ur Specific [place] Urine Protein Urine Glucose (UA) Urine Ketones Urine Occult Blood Urine Nitrate Urine Bilirubin Urine Urobilinogen Ur Leukocyte Esterase Urine RBC Urine WBC Ur Squamous Epith Cells Urine Bacteria Ur Culture Indicated? 10/19/20 10/19/20 02:41 05:11 WBC RBC Hgb Hct MCV MCH MCHC RDW Plt Count Neut % (Auto) Lymph % (Auto) [place] % (Auto) Eos % (Auto) Baso % (Auto) Lymph # (Auto) [place] # (Auto) Baso # (Auto) Total Counted Seg Neutrophils % Band Neutrophils % Lymphocytes % (Manual) Atypical Lymphs % Monocytes % (Manual) Metamyelocytes % Neutrophils # (Manual) Plt Morphology Comment RBC Morphology Macrocytosis PT INR Sodium Potassium Chloride Carbon Dioxide BUN Creatinine Estimated GFR BUN/Creatinine Ratio Glucose Calcium Magnesium Total Bilirubin Conjugated Bilirubin Unconjugated Bilirubin AST ALT Alkaline Phosphatase C-Reactive Protein 7.7 H NT-Pro-B Natriuret Pep 972 H Total Protein Albumin Globulin Albumin/Globulin Ratio Prealbumin 11.7 L Lipase 161 D Urine Color Yellow Urine Appearance Clear Urine pH 5.5 Ur Specific [place] 1.010 Urine Protein 1+ H Urine Glucose (UA) Negative Urine Ketones Negative Urine Occult Blood Negative Urine Nitrate Negative Urine Bilirubin Negative Urine Urobilinogen 0.2 Ur Leukocyte Esterase Negative Urine RBC 0-1/hpf Urine WBC None seen Ur Squamous Epith Cells 0-1 /hpf Urine Bacteria Occasional (0-1) Ur Culture Indicated? Cult not indicated PFSH Medical History Acute cholecystitis Acute pancreatitis Bowel obstruction BPH (benign prostatic hyperplasia) Hypertension Pancytopenia Family History Mother Old age Father Myocardial infarction Social History marital status: household members: spouse Smoking Status: Never smoker Assessment & Plan Assessment & Plan narrative: This is an 80 year old male admitted with gallstone pancreatitis and acute cholecystitis doing well today with plan for cholecystectomy tomorrow. 1. Acute cholecystitis, present on admission, improved - continue zosyn until cholecystectomy planned for tomorrow, appreciate general surgery consultation with Dr. Espino. - advanced diet per surgery recommendations, now on low fat. - NPO @ midnight ordered by surgery. 2. Acute gallstone pancreatitis with probable choledocholithiasis and/or cholangitis. - see above. - probable choledocholithiasis given trasnsaminase and bilirubin elevations on admission which have improved. Differential includes alcoholic hepatitis given 1-2 beers daily, however this is felt to be less likely at this time. Given fever may have had a mild cholangitis as well which has responded to initial antibiotics. - MRCP yesterday without obstructing stone, does show pancreatitis and cholecystitis. 3. Partial small bowel obstruction - likely secondary to above pancreatitis and inflammation. Now on a regular low fat diet. 4. Acute kidney injury, resolved - resolved, likely in setting of above infection. Will continue to hold aceinhibitor for now given controlled BP and planned OR tomorrow. 5. Essential hypertension, suboptimally controlled, likely in the setting of pain - medications held for now with good control. Can restart beta berkley if needed today, restart lisinopril after surgery. 6. BPH, chronic Continue home dose of tamsulosin 0.4 mg po daily 7. Pancytopenia - suspect related to chronic alcohol use. Hg has trended down but this may be related to pancreatitis. No evidence of active bleeding with signs or symptoms. Continue to monitor h/h. no schistocytes or abnormal pathology noted on smear review per CBC results. Code status: DNR, okay to intubate as discussed with the patient who identifies Manasa Ochoa, as his surrogate and POA. Discharge to home, probably after cholecystectomy tomorrow depending on timing. COVID-19 COVID-19 status: Negative Result date/Date tested (Pos, Neg/Pending): 10/18/20 Scores SOFA PaO2/FIO2: >=400 mmHg Platelets: < 150 Bilirubin: 2.0-5.9 mg/dL Hypotension: MAP >= 70 mmHg [place] Coma Scale: 15 Renal: Creatinine 1.2-1.9 mg/dL SOFA Score: 4 Quality VTE Deep Vein Thrombosis/Pulmonary Embolism Present on Admission: No
--- NOTE | 2020-10-19 12:21 | PM.PN.1 ---
Subjective Subjective Date Patient Seen: 10/19/20 Time Patient Seen: 12:21 Interval history: Gallstone pancreatitis, Possible duodenal inflammation, pancytopenia, proteint malnutrition Exam Vital Signs (past 8 hours): - 10/19/20 05:21 10/19/20 07:32 Temperature 98.7 F 98.2 F Pulse Rate 72 69 Respiratory Rate 16 14 Blood Pressure 142/71 H 132/70 Pulse Oximetry 92 96 Oxygen Delivery Method Room Air Oxygen Flow Rate 0 Narrative Exam Narrative: abdominal tenderness is resolved. Poor appetite, no BM since admission Objective Labs Result Diagrams: 10/19/20 02:41 10/19/20 02:41 Labs: Laboratory Results - last 24 hr 10/19/20 10/19/20 10/19/20 02:41 02:41 02:41 WBC 3.9 L RBC 2.46 L Hgb 8.7 L Hct 25.4 L MCV 103.2 H MCH 35.3 H MCHC 34.2 RDW 13.9 Plt Count 100 L Neut % (Auto) Not Reportable Lymph % (Auto) Not Reportable [place] % (Auto) Not Reportable Eos % (Auto) Not Reportable Baso % (Auto) Not Reportable Lymph # (Auto) Not Reportable [place] # (Auto) Not Reportable Baso # (Auto) Not Reportable Total Counted 100 Seg Neutrophils % 40.0 Band Neutrophils % 6.0 Lymphocytes % (Manual) 22.0 L Atypical Lymphs % 1.0 H Monocytes % (Manual) 30.0 H Metamyelocytes % 1.0 H Neutrophils # (Manual) 1794 L Plt Morphology Comment Few giant platelets RBC Morphology See below Macrocytosis 1+ H PT 16.0 H INR 1.4 H Sodium 136 L Potassium 3.9 Chloride 106 Carbon Dioxide 25 BUN 23 H Creatinine 1.09 Estimated GFR > 60.0 BUN/Creatinine Ratio 21.1 Glucose 86 Calcium 8.4 Magnesium 1.5 L Total Bilirubin 1.0 Conjugated Bilirubin 0.0 Unconjugated Bilirubin 0.8 AST 59 ALT 75 H Alkaline Phosphatase 118 C-Reactive Protein NT-Pro-B Natriuret Pep Total Protein 6.5 Albumin 3.1 L Globulin 3.4 Albumin/Globulin Ratio 0.9 L Prealbumin Lipase Urine Color Urine Appearance Urine pH Ur Specific [place] Urine Protein Urine Glucose (UA) Urine Ketones Urine Occult Blood Urine Nitrate Urine Bilirubin Urine Urobilinogen Ur Leukocyte Esterase Urine RBC Urine WBC Ur Squamous Epith Cells Urine Bacteria Ur Culture Indicated? 10/19/20 10/19/20 02:41 05:11 WBC RBC Hgb Hct MCV MCH MCHC RDW Plt Count Neut % (Auto) Lymph % (Auto) [place] % (Auto) Eos % (Auto) Baso % (Auto) Lymph # (Auto) [place] # (Auto) Baso # (Auto) Total Counted Seg Neutrophils % Band Neutrophils % Lymphocytes % (Manual) Atypical Lymphs % Monocytes % (Manual) Metamyelocytes % Neutrophils # (Manual) Plt Morphology Comment RBC Morphology Macrocytosis PT INR Sodium Potassium Chloride Carbon Dioxide BUN Creatinine Estimated GFR BUN/Creatinine Ratio Glucose Calcium Magnesium Total Bilirubin Conjugated Bilirubin Unconjugated Bilirubin AST ALT Alkaline Phosphatase C-Reactive Protein 7.7 H NT-Pro-B Natriuret Pep 972 H Total Protein Albumin Globulin Albumin/Globulin Ratio Prealbumin 11.7 L Lipase 161 D Urine Color Yellow Urine Appearance Clear Urine pH 5.5 Ur Specific [place] 1.010 Urine Protein 1+ H Urine Glucose (UA) Negative Urine Ketones Negative Urine Occult Blood Negative Urine Nitrate Negative Urine Bilirubin Negative Urine Urobilinogen 0.2 Ur Leukocyte Esterase Negative Urine RBC 0-1/hpf Urine WBC None seen Ur Squamous Epith Cells 0-1 /hpf Urine Bacteria Occasional (0-1) Ur Culture Indicated? Cult not indicated PFSH Medical History Acute cholecystitis Acute pancreatitis Bowel obstruction BPH (benign prostatic hyperplasia) Hypertension Pancytopenia Family History Mother Old age Father Myocardial infarction Social History marital status: household members: spouse Smoking Status: Never smoker Assessment & Plan Assessment & Plan narrative: Resolving gallstone pancreatitis, possible duodenal inflammation. 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 Protein malnutrition. Plan: NPO at midnight Lap joyce tomorrow +/- platelets preoperatively Time Spent With Patient Time with patient: 15-24 minutes Quality VTE Deep Vein Thrombosis/Pulmonary Embolism Present on Admission: No
[2020-10-19] MEDS: LACTATED RINGERS 1,000 ML 84 ML IV (13:07)
[2020-10-19] MEDS: OXYCODONE/ACETAMINOPHEN 5/325 TABLET 2 TAB PO (18:01)
[2020-10-20] VITALS (13 sets, daily range): BP systolic 135–195; BP diastolic 68–96; PULSE 61–87; RESP 13–17; TEMP 36.5–36.9; O2SAT 95–99; BMI 25.3
--- NOTE | 2020-10-20 | PATH_ITS ---
[facility] Accession Number: [id number] . 01 Material submitted: . duodenum - DUODENUM . 02 Diagnosis: Duodenum, Biopsy: Superficial fragment of duodenal mucosa with gastric surface foveolar metaplasia, consistent with peptic duodenitis. Negative for intraepithelial lymphocytosis. Negative for granulomas, dysplasia, and malignancy. MRV 10/22/2020 1246 Local . 02 Electronically signed: . Nenita Lyle MD, Pathologist NPI- [id number] . 01 Gross description: . DUODENUM: Received in formalin is 1 fragment(s) of cope, soft tissue measuring 0.1 x 0.1 x 0.1 cm submitted entirely in 1 cassette(s) /BUSTER 10/21/2020 1900 Local . 02 Pathologist provided ICD-10: R10.9 . 02 CPT . 131580 Performed at: 01 [facility] [address], [place], [place] [id number] MD Robson Guzmán MD Phone: [phone] Performed at: [address] [facility] [address] [place], [place] [id number] MD Nenita Lyle MD Phone: [phone]
[2020-10-20] MEDS: LACTATED RINGERS 1,000 ML 84 ML IV (01:49)
[2020-10-20] MEDS: PIPERACILLIN/TAZO 3.375 GM in SODIUM CHLORIDE 0.9% 100 ML 25 ML IV ×2 (02:25→11:56)
[2020-10-20 05:54] LABS: Add Manual Diff / Slide Review NO; Basophils Absolute Auto 0 /uL (0-100); Basophils Percent Auto 0.2 % (0-2); Eosinophils Absolute Auto 0 /uL (0-450); Eosinophils Percent Auto 1.1 % (2-4); Hematocrit 23.7 % (41-53); Hemoglobin 8.1 g/dL (13.5-17.5); Lymphocytes Absolute Auto 700 /uL (1100-4500); Lymphocytes Percent Auto 20.2 % (25-40); Mean Corpuscular HGB Conc 34.1 % (30-36); Mean Corpuscular Hemoglobin 35.4 PG (26-34); Mean Corpuscular Volume 103.9 fL (80-100); Monocytes Absolute Auto 1200 /uL (0-900); Monocytes Percent Auto 31.8 % (3-14); Neutrophils Absolute Auto 1700 /uL (1500-7000); Neutrophils Percent Auto 46.7 % (50-75); Platelet Count 94 X10^3/uL (150-400); Red Blood Cell Count 2.28 X10^6/uL (4.5-5.9); White Blood Cell Count 3.6 X10^3/uL (4.5-11.0)
[2020-10-20 05:56] LABS: INR 1.3 (0.9-1.3)
[2020-10-20 06:04] LABS: Alanine Aminotransferase 45 IU/L (<50); Albumin 2.9 g/dL (3.5-5.0); Albumin Globulin Ratio 0.9 (1.0-2.8); Alkaline Phosphatase 100 U/L (38-126); Aspartate Aminotransferase 32 IU/L (17-59); Bilirubin Total 0.8 mg/dL (0.2-1.3); Bilirubin Unconjugated 0.6 mg/dL (0.0-1.1); Blood Urea Nitrogen 20 mg/dL (9-20); Calcium 8.4 mg/dL (8.4-10.2); Carbon Dioxide 24 mmol/L (22-32); Chloride 108 mmol/L (98-107); Estimated Glomerular Filt Rate > 60.0 mL/min (>60); Globulin 3.4 g/dL (1.7-4.1); Glucose 90 mg/dL (80-110); HEMOLYSIS < 15 (0-50); Magnesium 1.5 mg/dL (1.6-2.3); Potassium 3.5 mmol/L (3.4-5.1); Sodium 137 mmol/L (137-145); Total Protein 6.3 g/dL (6.3-8.2)
[2020-10-20] MEDS: PANTOPRAZOLE DR 40 MG TABLET PO (06:11)
[2020-10-20 06:36] LABS: TSH w/ Reflex to FT4 2.77 uIU/mL (0.47-4.68)
[2020-10-20 06:54] LABS: Vitamin B12 Reflex MMA if <400 272 pg/mL (239-931)
[2020-10-20] MEDS: PANTOPRAZOLE 40 MG VIAL IV (09:43)
[2020-10-20] MEDS: MAGNESIUM SULFATE 2 GM/50 ML PIGGYBACK IV (09:46)
[2020-10-20 10:08] LABS: HEMOLYSIS < 15 (0-50); Iron 46 ug/dL (49-181)
[2020-10-20 10:18] LABS: Percent Iron Saturation 19 % (20-50); Total Iron Binding Capacity 243 ug/dL (261-462); Transferrin 158 mg/dL (206-381)
--- NOTE | 2020-10-20 13:05 | P.OP.PRE_ITS ---
Pre-operative Note COVID-19 COVID-19 status: Negative Interval Note History & Physical reviewed/Exam performed by Physician: Yes Changes to H&P: Yes H&P completed within 30 days and has changed as indicated here:: pancytopenia choudhary s dropped to a point that transfusion of plt and blood would be highly likely. Therefor I chose to postpone his lap joyce to an outpatient status until his pancytopenia improves or get further work up. Will proceed with EGD to identify peptic ulcer disease.
--- NOTE | 2020-10-20 14:44 | PM.OP.ENDO ---
Operative Date/Time/Diagnoses Date of procedure: 10/20/20 Time of procedure: 14:44 Pre-op diagnosis: iron deficiency anemia, abnormal finding on MRCP and CT Post-op diagnosis: same Procedure & Clinicians Study performed: EGD with cold forcep biopsy Same procedure as scheduled: Yes Indications: anemia Surgeon: Andreea Espino Procedure Notes SCOAP/Timeout: done Procedure in detail: Prep diagnosis: Iron deficiency anemia, abnormality seen duodenum the ERCP and CT scan Postop diagnosis: Same Operative procedure: EGD with cold forceps biopsy Anesthetic: Mac Findings: Duodenitis, normal gastric exam with small hiatal hernia, esophagus also normal. Procedure: Patient placed in a lateral position. Anesthetic was provided. Scope inserted into the esophagus and advanced into the stomach, with insufflation identified pylorus intubated and the duodenum. First portion of duodenum had severe duodenitis, 2nd and 3rd portion had no active bleeding and no duodenitis. Stomach was within normal limits with small multiple gastric polyps but no ongoing gastritis. Small hiatal hernia. As seen on retroflex. Esophagus was normal in nature. Impression: Duodenitis, no active bleeding, no ulcers no masses. Biopsies taken of the duodenum using cold biopsy forceps Plan is continue PPI b.i.d. 6-8 weeks. Follow-up with PCP for pathology results.
--- NOTE | 2020-10-20 15:18 | SUR.PHASEII ---
stable post egd, belly soft tolerated flds and denied pain, pt transported up to room for face to face report.
[2020-10-20 16:01] LABS: Hematocrit 26.4 % (41-53)
--- NOTE | 2020-10-20 16:22 | P.DS_ITS ---
History of Present Illness History of Present Illness Date Patient Seen: 10/20/20 Time Patient Seen: 16:22 Chief complaint: ABD Pain Narrative: Per Luanne Colon, ANRP, Jonel Ochoa is an 80 y.o. male with hypertension and benign prostatic hypertrophy was in his usual state of health when at approximately 2200 he woke up with abdominal pain. He vomited into a basin in his kitchen then was dry heaving after that. His who has tender health took his temparature and it was normal. He stated he felt very bad and may have caught breakthrough COVID- 19, but described vague discomfort and central lower abdominal pain that seemed to radiate inward. He stated his said she would bring him to the hospital in the am, but he stated he felt he needed to be seen sooner. Denies cough, shortness of breath, chest pain, diarrhea or constipation. Stated his last bowel movement was on 10/17. Both a CT of the abdomen and pelvis and a ultrasound were done in the ED. Findings of the CT indicated ?pericholecystic inflammatory stranding noted, intrahepatic biliary distention, likely representing acute cholecystitis. It also found inflammatory stranding and ascites noted around the duodenum with duodenal wall thickening and pyloric wall thickening questioning whether it was gastritis or duodenitis. It did not identify any pancreatic abnormalities. There were renal cysts and calcifications and a question of a moderate small bowel distension mid abdomen to the right lower quadrant concluding a moderate partial small-bowel obstruction mid to distal jejunum. The ultrasound read concluded cholelithiasis and gallbladder sludge with wall thickening likely cholecystitis and a 1.2 cm non mobile nonshadowing abnormality of the medial gallbladder wall questioning a polyp, adherent sludge or mass. It also noted hepatomegaly with fatty infiltration of the liver. EKG indicated sinus rhythm with PACs. Patient was afebrile, blood pressure 159/89, heart rate 81, respiratory rate 16, oxygen saturation 99% on room air, he weighs 83 kg with a BMI of 24.8. WBC is 4.0 RBC 2.98 hemoglobin 10.5 hematocrit 30.7 platelet count 144. His creatinine is 1.4 which is not normal for him and an EGFR of 48.8, glucose 144, total bilirubin 2.0, GGT was elevated at 158 AST 153 ALT 113 alk- phos 146 lipase was markedly elevated at 2,357, procalcitonin was 0.5 and COVID 19 PCR was negative. Discharge Providers Provider Date of admission: 10/18/20 02:08 Discharge Date: 10/20/20 Primary care physician: Shandra Barrett MD Consults: 10/18/20 02:00 Consult to General Surgery Stat Comment: Consulting Provider: Andreea Espino Reason for consultation: Cholelithiasis Has provider been notified: Yes 10/18/20 02:32 Consult to Physician Routine Comment: Consulting Provider: Andreea Espino Reason for consultation: Acute cholecystitis and pancreatitis Has provider been notified: Yes Discharge provider: Vince Blandon DO Summary Hospital Course Discharge Diagnosis: Please see hospital course by problem list noted below Hospital Course: This is an 80 year old male admitted with gallstone pancr eatitis and acute cholecystitis. His course was complicated by a GI bleed secondary to duodenitis found on EGD. Given pancytopenia, surgery deferred cholecystectomy to outpatient. 1. Acute cholecystitis, present on admission, improved - continued zosyn during hospital stay, appreciate general surgery consultation with Dr. Espino. Cholecystectomy deferred until outpatient given pancytopenia. Discharged on oral augmentin. Patient tolerating a diet without pain on discharge. - advanced diet per surgery recommendations, now on low fat. - discharged on low fat diet, antibiotics for an additional 7 days, and near term surgery follow up. 2. Acute gallstone pancreatitis with probable choledocholithiasis and/or cholangitis. - see above. - probable choledocholithiasis given trasnsaminase and bilirubin elevations on admission which have improved. Differential includes alcoholic hepatitis given 1-2 beers daily, however this is felt to be less likely at this time. Given fever may have had a mild cholangitis as well which has responded to initial antibiotics. - MRCP without obstructing stone, did show pancreatitis and cholecystitis. 3. Partial small bowel obstruction - likely secondary to above pancreatitis and inflammation. Now on a regular low fat diet. 4. Acute blood loss anemia, and pancytopenia secondary to duodenitis - EGD noted duodenitis. Hg trended to as low as 8.1 during stay, improved after initiation of PPI BID. - continue PPI BID as an outpatient. continue PPI 6-8 weeks per surgery recommendations. Further evaluation of pancytopenia deferred to outpatient PCP. Follow up biopsies with general surgery as an outpatient. 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 Started on oral iron supplementation. - b12 level was low normal, MMA pending. - suspect also related to chronic alcohol use. 4. Acute kidney injury, resolved - resolved, likely in setting of above infection. Gio inhibitor was held briefly during his hospital stay. 5. Essential hypertension, - okay to continue home medications on discharge. 6. BPH, chronic Continue home dose of tamsulosin 0.4 mg po daily Code status: DNR, okay to intubate as discussed with the patient who identifies Manasa Ochoa, as his surrogate and POA. Discharged to home Time Spent with Patient Time spent: Greater than 30 minutes Exam Vital Signs (past 8 hours): - 10/20/20 09:05 10/20/20 09:29 10/20/20 12:00 Temperature 97.9 F 97.8 F Pulse Rate 75 78 Respiratory Rate 16 17 Blood Pressure 153/80 H 135/70 Pulse Oximetry 98 97 96 10/20/20 13:40 10/20/20 14:48 10/20/20 14:54 Temperature 98.2 F 97.8 F Pulse Rate 87 74 79 Respiratory Rate 16 17 13 Blood Pressure 195/83 H 144/76 H 144/78 H Pulse Oximetry 98 95 95 10/20/20 14:58 10/20/20 15:12 10/20/20 15:25 Temperature 98 F 97.8 F Pulse Rate 70 68 61 Respiratory Rate 13 15 16 Blood Pressure 150/68 H 153/82 H 151/78 H Pulse Oximetry 96 97 98 10/20/20 15:55 Temperature 98.3 F Pulse Rate 62 Respiratory Rate 15 Blood Pressure 178/96 H Pulse Oximetry 97 Oxygen Delivery Method Room Air Oxygen Flow Rate 0 Narrative Exam Narrative: Gen: Alert, oriented, well- 80 y.o. male, no acute distress HEENT: normocephalic, atraumatic, conjunctiva clear, sclera non-icteric, oral mucosa pink and moist Neck: supple, full ROM Resp: Lungs CTA, non-labored breathing CV: RRR, no murmur or rubs Abd: soft, non-tender, non-distended. Skin: no lesions or rashes, dry and intact Neuro: Hard of hearing, alert and oriented X 4 w/no focal deficits Extremities: No edema or joint effusions bilaterally. Psyche: pleasant, normal mood and affect. Objective Labs Result Diagrams: 10/20/20 15:55 10/20/20 05:37 Labs: Laboratory Results - last 24 hr 10/20/20 10/20/20 10/20/20 05:37 05:37 05:37 WBC 3.6 L RBC 2.28 L Hgb 8.1 L Hct 23.7 L MCV 103.9 H MCH 35.4 H MCHC 34.1 RDW 14.0 Plt Count 94 L Neut % (Auto) 46.7 L Lymph % (Auto) 20.2 L Shoshone % (Auto) 31.8 H Eos % (Auto) 1.1 L Baso % (Auto) 0.2 Neut # (Auto) 1700 Lymph # (Auto) 700 L Shoshone # (Auto) 1200 H Eos # (Auto) 0 Baso # (Auto) 0 PT 15.0 H INR 1.3 Sodium 137 Potassium 3.5 Chloride 108 H Carbon Dioxide 24 BUN 20 Creatinine 0.87 Estimated GFR > 60.0 BUN/Creatinine Ratio 23.0 H Glucose 90 Calcium 8.4 Magnesium 1.5 L Iron TIBC % Saturation Transferrin Total Bilirubin 0.8 Conjugated Bilirubin 0.0 Unconjugated Bilirubin 0.6 AST 32 ALT 45 Alkaline Phosphatase 100 Total Protein 6.3 Albumin 2.9 L Globulin 3.4 Albumin/Globulin Ratio 0.9 L Vitamin B12 TSH 10/20/20 10/20/20 10/20/20 05:37 05:37 09:15 WBC RBC Hgb Hct MCV MCH MCHC RDW Plt Count Neut % (Auto) Lymph % (Auto) Shoshone % (Auto) Eos % (Auto) Baso % (Auto) Neut # (Auto) Lymph # (Auto) Shoshone # (Auto) Eos # (Auto) Baso # (Auto) PT INR Sodium Potassium Chloride Carbon Dioxide BUN Creatinine Estimated GFR BUN/Creatinine Ratio Glucose Calcium Magnesium Iron 46 L TIBC 243 L % Saturation 19 L Transferrin 158 L Total Bilirubin Conjugated Bilirubin Unconjugated Bilirubin AST ALT Alkaline Phosphatase Total Protein Albumin Globulin Albumin/Globulin Ratio Vitamin B12 272 TSH 2.77 10/20/20 15:55 WBC RBC Hgb 9.0 L Hct 26.4 L MCV MCH MCHC RDW Plt Count Neut % (Auto) Lymph % (Auto) Shoshone % (Auto) Eos % (Auto) Baso % (Auto) Neut # (Auto) Lymph # (Auto) Shoshone # (Auto) Eos # (Auto) Baso # (Auto) PT INR Sodium Potassium Chloride Carbon Dioxide BUN Creatinine Estimated GFR BUN/Creatinine Ratio Glucose Calcium Magnesium Iron TIBC % Saturation Transferrin Total Bilirubin Conjugated Bilirubin Unconjugated Bilirubin AST ALT Alkaline Phosphatase Total Protein Albumin Globulin Albumin/Globulin Ratio Vitamin B12 TSH [facility] Medical History Acute cholecystitis Acute pancreatitis Bowel obstruction BPH (benign prostatic hyperplasia) Hypertension Pancytopenia Family History Mother Old age Father Myocardial infarction Social History marital status: household members: spouse Smoking Status: Never smoker alcohol intake: current Discharge Plan Discharge Plan Patient Disposition: Home Provider Discharge Comment: You were admitted to the hospital with pancreatitis or inflammation of your pancreas. This was due to a stone from your gallbladder getting stuck most likely which resolved on it's own but unfortunately your gallbladder also appeared infected. You were also found to have inflammation in your duodenum and will be discharged on oral medications. Please follow up with your PCP in 1-2 weeks for evaluation of your low blood counts. Please give the surgery clinic a call in the next few days to schedule follow up as they do recommend removing your gallbladder at some point in the near future. Please follow a low fat diet at home until your gallbladder is able to be removed. Discharge orders & Medications Prescriptions: New pantoprazole 40 mg tablet,delayed release (DR/EC) 40 mg PO BID 60 Days Qty: 120 RF: 0 ferrous sulfate 325 mg (65 mg iron) tablet 325 mg PO Q OTHER DAY 60 Days Qty: 30 RF: 0 amoxicillin-pot clavulanate [Augmentin] 875-125 mg tablet 1 tab PO BID 7 Days Qty: 14 RF: 0 Continued multivitamin [Multiple Vitamins] 1 EACH tablet 1 tab PO QDAY Qty: 0 RF: 0 tamsulosin [Flomax] 0.4 mg Capsule,Extended Release 24hr 0.4 mg PO DAILY RF: 0 lisinopril 5 mg Tablet 5 mg PO DAILY RF: 0 gabapentin 100 mg Capsule 100 mg PO DAILY RF: 0 gabapentin 100 mg Capsule 300 mg PO BEDTIME PRN (Reason: Muscle Pain) RF: 0 lisinopril-hydrochlorothiazide 20-25 mg tablet 10 - 12.5 tab PO DAILY RF: 0 Discontinued aspirin 81 mg Tablet,Delayed Release (Dr/Ec) 81 mg PO BID RF: 0 Follow up/Referrals: Andreea Espino MD [Physician] - 1 Week (Follow up gallstone pancreatitis, no cholecystectomy during admission. Also had EGD) Shandra Barrett MD [Primary Care Provider] - Diet/Activity/Treatments Diet: Diet as Tolerated and Low-fat Activity: As tolerated Visit Report/Discharge Packet Instructions: Acute Pancreatitis, DI for Cholecystitis Stand Alone Forms: EGD Result: [facility] Discharge Data Primary Care Provider: Shandra Barrett Quality VTE Deep Vein Thrombosis/Pulmonary Embolism Present on Admission: No
--- NOTE | 2020-10-20 18:14 | PC.NURSE ---
PIV dc. pt discharge instructions given. pt prescription sent to pharmacy, educated pt regarding his meds and when he needs to take them. pt will be escorted to exit via wheelchair. pt denies any pain, nausea or sob. cms+. voiding without difficulty, passing gas.
[2020-10-22 07:36] LABS: Methylmalonic Acid,Serum 146 nmol/L (0-378)
== END 2020-10-20 18:32 | disposition home or self-care (01) | DRG 438 ==
LOC: ED 23:04 → AC 10-18 02:08
PROVIDERS: Internal Medicine; Surgery; Admitting Provider Nurse Practitioner Family; Emergency Provider Emergency Medicine; PCP Internal Medicine; Referring Provider Emergency Medicine; Visit Provider Nurse Practitioner Family
PROC: 0DJ08ZZ Inspection of Upper Intestinal Tract, Via Natural or Artificial Opening Endoscopic (ICD-10-PCS; CPT 43235; principal; 2020-10-20 13:30)
DX: K85.10 Biliary acute pancreatitis without necrosis or infection (principal); K29.81 Duodenitis with bleeding; K80.00 Calculus of gallbladder with acute cholecystitis without obstruction; K56.600 Partial intestinal obstruction, unspecified as to cause; N17.9 Acute kidney failure, unspecified; D61.818 Other pancytopenia; K80.62 Calculus of gallbladder and bile duct with acute cholecystitis without obstruction; K80.42 Calculus of bile duct with acute cholecystitis without obstruction; D62 Acute posthemorrhagic anemia; I10 Essential (primary) hypertension; N40.0 Benign prostatic hyperplasia without lower urinary tract symptoms; Z20.822 Contact with and (suspected) exposure to COVID-19
CPT/HCPCS: 36415; 43239; 74177; 74181; 76705; 80048; 80053; 80076; 81001; 82607; 82977; 83036; 83540; 83550; 83690; 83735; 83880; 83921; 84134; 84145; 84443; 84478; 85007; 85014; 85018; 85025; 85610; 86140; 87635; 93005; 94762; 96361; 96365; 96375; 96376; 99231; 99284; 99285; C9803; C9113; J2250; J2270; J2405; J2543; J2704; J3010; J3475; Q9967

== ENCOUNTER 2020-11-04 11:41 | Emergency (ER) | payer OTHER, SELFPAY ==
[2020-10-18 03:09] VITALS: BMI 24.7
[2020-11-04] VITALS (21 sets, daily range): BP systolic 157–200; BP diastolic 68–95; PULSE 43–96; RESP 8–22; TEMP 36.8; O2SAT 96–99; BMI 27.1
[2020-11-04 13:21] LABS: Hematocrit 30.3 % (41-53); Hemoglobin 10.2 g/dL (13.5-17.5); Mean Corpuscular HGB Conc 33.8 % (30-36); Mean Corpuscular Volume 103.6 fL (80-100); Platelet Count 137 X10^3/uL (150-400); Red Blood Cell Count 2.93 X10^6/uL (4.5-5.9); Red Cell Distribution Width 14.3 % (11.6-14.8)
[2020-11-04 13:29] LABS: Add Manual Diff / Slide Review YES
[2020-11-04 13:32] LABS: White Blood Cell Count 1.9 X10^3/uL (4.5-11.0)
[2020-11-04 13:37] LABS: Alanine Aminotransferase 138 IU/L (<50); Albumin 4.2 g/dL (3.5-5.0); Alkaline Phosphatase 239 U/L (38-126); Aspartate Aminotransferase 180 IU/L (17-59); BUN Creatinine Ratio 17.2 (6-22); Bilirubin Total 1.9 mg/dL (0.2-1.3); Blood Urea Nitrogen 17 mg/dL (9-20); Calcium 9.5 mg/dL (8.4-10.2); Carbon Dioxide 24 mmol/L (22-32); Chloride 107 mmol/L (98-107); Estimated Glomerular Filt Rate > 60.0 mL/min (>60); Globulin 4.1 g/dL (1.7-4.1); Glucose 120 mg/dL (80-110); HEMOLYSIS < 15 (0-50); Potassium 4.4 mmol/L (3.4-5.1); Sodium 140 mmol/L (137-145); Total Protein 8.3 g/dL (6.3-8.2)
--- NOTE | 2020-11-04 13:47 | DI.US.S_ITS ---
PROCEDURE: US ABDOMEN LIMITED INDICATIONS: RUQ PAIN EVAL FOR GB TECHNIQUE: Real-time focused scanning was performed of the abdomen, with image documentation. COMPARISON: [facility], MR, MR ABDOMEN WO CON, 10/18/2020, 12:03. [facility], US, US ABDOMEN LIMITED, 10/18/2020, 0:40. FINDINGS: The liver is enlarged, yet it demonstrates echogenicity within normal limits. Small gallstones can be seen within the gallbladder. The fundus of the gallbladder appears mildly irregular, the gallbladder wall does not appear frankly thickened. No specific pericholecystic fluid is seen. The sonographic Ryan sign cannot be properly assessed, secondary to the patient's medicated state. There is no biliary dilatation, the common bile duct measures 6 mm. Echogenic material is seen within the common bile duct. Prominent intrahepatic ducts are seen, left greater than right. The pancreas is not well seen. IMPRESSION: Small gallstones can be seen with an irregular fundus of the gallbladder, yet without additional sonographic signs of cholecystitis. Mild intrahepatic biliary ductal dilatation is seen. Echogenic material can be seen within the common bile duct, which may be related to stones. However, the common bile duct does not appear enlarged. If clinically appropriate, a follow-up MRCP could be considered for further evaluation (assuming that there is no contraindication to MRI). Dictated by: Cornel Beltran M.D. on 11/04/2020 at 13:35 Approved by: Cornel Beltran M.D. on 11/04/2020 at 13:38
[2020-11-04 13:52] LABS: Neutrophils Absolute Manual 342 /uL (3000-5900); Total Cells Counted 50
--- NOTE | 2020-11-04 13:52 | ED_ITS ---
HPI - General Adult General Chief complaint: Abdominal Pain Stated complaint: gallbladder acting up Time Seen by Provider: 11/04/20 13:22 Source: patient Mode of arrival: Ambulatory Limitations: no limitations History of Present Illness HPI narrative: Patient is an 80-year-old male. Is a DNR but not limited interve ntions who is here for evaluation of upper abdominal discomfort. He states that it is similar to the discomfort that he had here in the emergency department earlier this month 3 he was admitted for acute cholecystitis. He did have an ultrasound and MRCP which did not show any common bile duct stone. He was eventually discharged home after improvement of his labs and antibiotics. He was scheduled for an outpatient cholecystectomy sometime within the next couple days. He states this morning he woke up with upper abdominal discomfort. Some nausea. No vomiting. No change in bowel habits. He did have a bowel movement prior to coming in the emergency department without any change in his symptoms. No urinary symptoms. No fevers. Has not tried anything for symptoms prior to arrival. His last meal was last evening. Related Data Home Medications Medication Instructions Recorded Confirmed multivitamin (Multiple Vitamins) 1 tab PO QDAY #0 07/05/17 10/18/20 gabapentin 100 mg capsule 100 mg PO DAILY 08/04/17 10/18/20 gabapentin 100 mg capsule 300 mg PO BEDTIME PRN 08/04/17 10/18/20 lisinopril 5 mg tablet 5 mg PO DAILY 08/04/17 10/18/20 tamsulosin 0.4 mg capsule (Flomax) 0.4 mg PO DAILY 08/04/17 10/18/20 lisinopril 20 10 - 12.5 tab PO DAILY 07/18/19 10/18/20 mg-hydrochlorothiazide 25 mg tablet Previous Rx's Medication Instructions Recorded ferrous sulfate 325 mg (65 mg 325 mg PO Q OTHER DAY 60 Days #30 10/20/20 iron) tablet tab pantoprazole 40 mg tablet,delayed 40 mg PO BID 60 Days #120 tab 10/20/20 release Allergies Allergy/AdvReac Type Severity Reaction Status Date / Time No Known Drug Allergies Allergy Verified 10/20/20 13:45 Review of Systems Constitutional Constitutional: Reports as per HPI Cardiovascular Cardiovascular: Reports system reviewed and no additional complaints, except as documented Respiratory Respiratory: Reports system reviewed and no additional complaints, except as documented Gastrointestinal Gastrointestinal: Reports as per HPI Genitourinary Genitourinary: Reports system reviewed and no additional complaints, except as documented Musculoskeletal Musculoskeletal: Reports system reviewed and no additional complaints, except as documented Integumentary/Breasts Skin/Breast: Reports system reviewed and no additional complaints, except as documented Neurologic Neurologic: Reports system reviewed and no additional complaints, except as documented Hematologic/Lymphatic On Anticoagulants: No Patient History Medical History Acute cholecystitis Acute pancreatitis Bowel obstruction BPH (benign prostatic hyperplasia) Hypertension Pancytopenia Family History Mother Old age Father Myocardial infarction Social History marital status: household members: spouse Smoking Status: Never smoker alcohol intake: current Smoking Status: Never smoker alcohol intake frequency: 0-2 drinks per day Substance Use Type: marijuana Exam Initial Vital Signs Initial Vital Signs: Vital Signs Temperature 98.2 F 11/04/20 11:51 Pulse Rate 96 H 11/04/20 11:51 Respiratory Rate 18 11/04/20 11:51 Blood Pressure 160/80 H 11/04/20 11:51 Pulse Oximetry 98 11/04/20 11:51 Const General: cooperative HENMT Head: normal to inspection and normocephalic Resp Effort & Inspection: normal respiratory effort Auscultation: clear to auscultation bilaterally Cardio Rate: bradycardic Rhythm: regular rhythm GI Inspection: normal to inspection Palpation: soft, No guarding and tender Back/Spine/Pelvis Back: No CVA tenderness Skin General: no rashes or lesions noted Neuro General: patient alert, patient awake, patient oriented x3 and moves all extremities Speech: speech normal Extrem General: normal to inspection and capillary refill normal Psych Appearance: grossly normal and well kempt Scores GCS [place] coma scale eye opening: Spontaneous [place] coma scale verbal response: Orientated [place] coma scale motor response: Obey commands [place] coma scale total score: 15 Course Orders Ordered: ED Orders 11/04/20 13:03 EKG-12 Lead Stat 11/04/20 13:13 Complete Blood Count AUTO DIFF Stat Comprehensive Metabolic Panel Stat Lipase Stat 11/04/20 13:47 US abdomen limited Stat 11/04/20 15:31 COVID19 - ADMIT ([employer] OFF[employer]ER swab/PCR) Stat Sodium Chloride (Normal Saline 0.9%) 1,000 mls @ 125 mls/hr IV CONT MARIE Last Admin: 11/04/20 15:26 Dose: 125 mls/hr Documented by: ALEX Discontinued Medications Piperacillin Sod/Tazobactam (Sod 4.5 gm/ Sodium Chloride) 100 mls @ 200 mls/hr IV NOW ONE Stop: 11/04/20 15:11 Last Infusion: 11/04/20 17:15 Dose: 0 mls/hr Documented by: Admin: 11/04/20 15:26 Dose: 200 mls/hr Documented by: ALEX Morphine Sulfate (Morphine 4 Mg/Ml Inj) 4 mg IV NOW ONE Stop: 11/04/20 13:53 Last Admin: 11/04/20 13:59 Dose: 4 mg Documented by: ALEX Vital Signs Vital signs: Vital Signs - 8 hr 11/04/20 11:51 11/04/20 13:24 11/04/20 13:26 Temperature 98.2 F Pulse Rate 96 H 71 73 Respiratory Rate 18 Blood Pressure 160/80 H 200/95 H Pulse Oximetry 98 99 98 11/04/20 13:30 11/04/20 14:00 11/04/20 14:01 Temperature Pulse Rate 68 55 L 64 Respiratory Rate Blood Pressure 184/86 H 184/81 H Pulse Oximetry 98 98 98 11/04/20 14:30 11/04/20 14:31 11/04/20 15:00 Temperature Pulse Rate 46 L 47 L 47 L Respiratory Rate Blood Pressure 168/75 H 168/74 H Pulse Oximetry 99 99 98 11/04/20 15:30 11/04/20 16:00 11/04/20 16:01 Temperature Pulse Rate 55 L 48 L 43 L Respiratory Rate 16 8 L 9 L Blood Pressure 197/84 H 157/68 H Pulse Oximetry 98 96 97 11/04/20 16:30 11/04/20 16:31 11/04/20 17:00 Temperature Pulse Rate 60 55 L 61 Respiratory Rate 12 12 10 L Blood Pressure 179/78 H Pulse Oximetry 96 97 97 11/04/20 17:01 11/04/20 17:30 11/04/20 17:31 Temperature Pulse Rate 62 59 L 62 Respiratory Rate 8 L 13 13 Blood Pressure 175/77 H 186/78 H Pulse Oximetry 97 97 97 Medical Decision Making Medical Records Medical records reviewed: Yes I reviewed the patient's medical records. Lab Data Lab results reviewed: Yes I reviewed the patient's lab results. Result diagrams: 11/04/20 13:13 11/04/20 13:13 Labs: Lab Results 11/04/20 11/04/20 11/04/20 Range/Units 13:13 13:13 15:31 WBC 1.9 L* (4.5-11.0) X10^3/uL RBC 2.93 L (4.5-5.9) X10^6/uL Hgb 10.2 L (13.5-17.5) g/dL Hct 30.3 L (41-53) % MCV 103.6 H (80-100) fL MCH 35.0 H (26-34) PG MCHC 33.8 (30-36) % RDW 14.3 (11.6-14.8) % Plt Count 137 L (150-400) X10^3/uL Neut % (Auto) Not Reportable Lymph % (Auto) Not Reportable [place] % (Auto) Not Reportable Eos % (Auto) Not Reportable Baso % (Auto) Not Reportable Lymph # (Auto) Not Reportable [place] # (Auto) Not Reportable Baso # (Auto) Not Reportable Total Counted 50 Seg Neutrophils % 16.0 L (38-70) % Band Neutrophils % 2.0 L (3-7) % Lymphocytes % (Manual) 22.0 L (25-45) % Atypical Lymphs % 4.0 H ( - 0) % Monocytes % (Manual) 52.0 H (2-11) % Metamyelocytes % 2.0 H (-0) % Myelocytes % 2.0 H (-0) % Neutrophils # (Manual) 342 L (1092-5343) /uL RBC Morphology See below Macrocytosis 1+ H Sodium 140 (137-145) mmol/L Potassium 4.4 (3.4-5.1) mmol/L Chloride 107 (98-107) mmol/L Carbon Dioxide 24 (22-32) mmol/L BUN 17 (9-20) mg/dL Creatinine 0.99 (0.66-1.25) mg/dL Estimated GFR > 60.0 (>60) mL/min BUN/Creatinine Ratio 17.2 (6-22) Glucose 120 H (80-110) mg/dL Calcium 9.5 (8.4-10.2) mg/dL Total Bilirubin 1.9 H (0.2-1.3) mg/dL AST 180 H (17-59) IU/L ALT 138 H (<50) IU/L Alkaline Phosphatase 239 H (38-126) U/L Total Protein 8.3 H (6.3-8.2) g/dL Albumin 4.2 (3.5-5.0) g/dL Globulin 4.1 (1.7-4.1) g/dL Albumin/Globulin Ratio 1.0 (1.0-2.8) Lipase 08660 H (23-300) U/L SARS-CoV-2 (PCR) Negative (Negative) Imaging Data Previous abdominal ultrasound: Radiologist's Impression: [address] [id number] ReportSigned Patient: Jairo Ochoa#: [id number]: 1Acc t:[id number]/Sex: 80 / MDate of Service: 10/17/20Loc: EE271-2Wfhrbpguz Number: [id number] Procedure: US abdomen limited Ordering Provider: Tiomthy Win D.O. PROCEDURE: US ABDOMEN LIMITED INDICATIONS: RULE OUT GALLBLADDER PATHOLOGY TECHNIQUE: Real-time focused scanning was performed of the abdomen, with image documentation. COMPARISON: [facility], CT, CT ABDOMEN PELVIS W CON, 10/17/2020, 23:30. FINDINGS: The liver is prominent in size, measuring 19.1 cm. The liver demonstrates overall normal echogenicity, without focal lesions. Within the gallbladder fundus, there is a soft tissue focus seen measuring up to 12 mm. The gallbladder wall is thickened at 4 mm. There is a potential gallstone. No specific pericholecystic fluid is seen. The sonographic Ryan sign is negative. There is no biliary dilatation, the common bile duct measures 4 mm. Pancreas is not well seen on this study. A small amount of right upper quadrant ascites is seen. Scanning is limited by bowel gas. Cysts are seen involving the right kidney. IMPRESSION: Potential gallstone with gallbladder wall thickening. Please consider cholecystitis. Soft tissue focus seen involving the gallbladder wall, which is likely related to a polyp. Differential diagnosis would also include mass or adherent sludge, however. Right upper quadrant ascites is seen. Note: No significant discrepancy from the preliminary report. Dictated by: Cornel Beltran M.D. on 10/18/2020 at 7:37 Approved by: Cornel Beltran M.D. on 10/18/2020 at 7:[address] abdomen pelvis: Radiologist's Impression: [address] [id number] Scan ReportSigned Patient: Jairo OchoaMR#: [id number]: 1940cct:[id number]/Sex: 80 / MDate of Service: 10/17/20Lo: AC208- 1Accession Number: [id number] Procedure: CT abdomen pelvis w con Ordering Provider: Timothy Win D.O. PROCEDURE: CT ABDOMEN PELVIS W CON INDICATIONS: Generalized abdominal pain TECHNIQUE: After the administration of IV contrast, axial sections were acquired from the lung bases to the pubic symphysis. Coronal and sagittal reformats were performed. For radiation dose reduction, the following was used: automated exposure control, adjustment of mA and/or kV according to patient size. COMPARISON: [facility], , ABDOMEN LIMITED, 10/18/2020, 0:40. FINDINGS: Image quality: Excellent. Lung bases: Unremarkable. Heart: No significant findings. Moderate coronary artery calcification can be seen. ABDOMEN: Liver: Unremarkable. Gallbladder: Mild gallbladder wall thickening can be seen at the level of the fundus, with mild pericholecystic fluid. Biliary ducts: Unremarkable. Pancreas: There is focal inflammatory change seen involving the head of the pancreas. Spleen: Unremarkable. Adrenal Glands: Unremarkable. Kidneys and Ureters: Along the anterior aspect of the right kidney, there is an apparent enhancing nodule that measures 2 cm. Multiple cysts are seen elsewhere, including hyperdense cysts. Numerous areas of parenchymal calcification can be seen. There is no hydronephrosis. Stomach and Bowel: There is focal irregularity with surrounding inflammatory change seen involving the gastric pylorus and the proximal duodenum. No other areas of focal bowel abnormality can be seen. Prominent loops of proximal small bowel can be seen, measuring up to 2.7 cm. The cecum is mildly high-riding. Peritoneum: Mild ascites is seen involving the right upper quadrant. No free air. Ventral Wall: No hernia. Abdominal Nodes: No retroperitoneal or mesenteric adenopathy by size criteria. Vessels: Aorta and inferior vena cava are normal in size. Atherosclerotic calcification is noted. PELVIS: Pelvic Organs: Unremarkable. Bladder: Unremarkable. Pelvic Nodes: No enlarged lymph nodes. Miscellaneous: Bilateral fat containing inguinal hernias are seen, left larger than right. Bones: Focal lower lumbar spine degenerative changes are seen. Milder degenerative changes are seen elsewhere. IMPRESSION: Focal inflammatory change can be seen involving the gastric pylorus, proximal duodenum, and the head of the pancreas. Differential diagnosis includes gastritis/duoden itis versus pancreatitis. Right upper quadrant ascites is seen, with thickening of the fundus of the gallbladder. Differential diagnosis includes cholecystitis versus reactive inflammatory change. Prominent loops of proximal small bowel can be seen that measure up to 2.7 cm. Differential diagnosis includes proximal ileus versus partial bowel obstruction. There is a 2 cm enhancing nodule along the anterior aspect of the left kidney. Differential diagnosis includes a true mass versus unusual appearing renal parenchyma. When clinically appropriate, please consider a dedicated renal mass protocol CT for further evaluation. Numerous bilateral renal cysts are seen, including hyperdense cysts. Numerous areas kidney parenchymal calcification can be seen. Incidental note is made of: Moderate coronary artery calcification Fat containing bilateral inguinal hernias Note: No significant discrepancy from the preliminary report. Dictated by: Cornel Beltran M.D. on 10/18/2020 at 7:26 Approved by: Cornel Beltran M.D. on 10/18/2020 at 7:36 Previous MRCP: Radiologist's Impression: [address] [id number] Resonance ReportSigned Patient: Jairo Ochoa#: [id number]: 1940cct:[id number]/Sex: 80 / MDate of Service: 10/18/20Loc: AC208- 1Accession Number: [id number] Procedure: MR abdomen wo con Ordering Provider: Vince Blandon D.O. PROCEDURE: MR ABDOMEN WO CON INDICATIONS: concern for obstructing stone/cholangitis TECHNIQUE: Coronal HASTE through the abdomen, axial 2-D FLASH in- and [id number], and breath-hold T2 FSE with fat saturation through the biliary system and pancreas. Oblique coronal and axial thin-slice HASTE, radial thick-slab HASTE centered on the extrahepatic bile ducts. Intravenous secretin: Not requested. COMPARISON: [facility], US, US ABDOMEN LIMITED, 10/18/2020, 0:40. [facility], CT, CT ABDOMEN PELVIS W CON, 10/17/2020, 23:30. FINDINGS: Image quality: This examination is limited by involuntary motion artifact. Pancreas and biliary system: A few tiny filling defects can be seen within the gallbladder, which are attributed to gallstones. Focal fundal gallbladder wall thickening can be seen. No specific pericholecystic fluid can be seen. No intrahepatic biliary ductal dilatation is seen. No extrahepatic biliary ductal dilatation is seen. The common bile duct measures up to 4 mm. No ductal stones are seen. Pancreas is normal in morphology. A small amount of free fluid can be seen adjacent to the pancreas. Pancreatic duct is normal in caliber, without developmental anomalies. Other solid organs: Liver is normal in size. Within the liver, T2 hyperintense foci can be seen, which are most likely related to cysts. Spleen is normal in size. No adrenal nodules. Both kidneys are normal in size, without hydronephrosis. Numerous bilateral renal cysts are seen, with the majority demonstrating a simple appearance. However, areas of layering likely proteinaceous debris can be seen within several renal cysts. A likely hemorrhagic cyst can be seen along the anterior aspect of the left kidney that measures up to 1.8 cm, which demonstrates dark signal on T2 HASTE imaging, as on series 5, image 25. Nodes and vessels: No retroperitoneal or mesenteric adenopathy by size criteria. Aorta and inferior vena cava are normal in size. Bowel and peritoneum: Focal irregularity and wall thickening can be seen involving the duodenum. Mild right upper quadrant ascites is seen. Lung bases: No basal pleural effusions. Heart size is normal. Bones and soft tissues: No ventral hernias. Bone marrow is of normal overall signal. Age-appropriate bony degenerative changes are seen. IMPRESSION: No biliary dilatation is seen. No biliary ductal stones can be seen. Focal gallbladder wall thickening can be seen at the level of the fundus. A few small filling defects are seen within the gallbladder, which are attributed to gallstones. Abnormal wall thickening can be seen involving the duodenum. Please consider du odenitis. A small amount of free fluid can be seen adjacent to the pancreas. Please consider pancreatitis. Right upper quadrant ascites is seen. Numerous renal cysts are seen, including several that demonstrate likely layering proteinaceous debris. A likely hyperdense/hemorrhagic cyst can be seen along the anterior aspect of the left kidney that measures 1.8 cm. Dictated by: Cornel Beltran M.D. on 10/18/2020 at 11:56 Approved by: Cornel Beltran M.D. on 10/18/2020 at 12:03 US - abdomen: Radiologist's Impression: [address] [id number] ReportSigned Patient: Jairo OchoaMR#: [id number]: 1940cct:[id number]/Sex: 80 / MDate of Service: 11/04/20Loc: ED Accession Number: [id number] Procedure: US abdomen limited Ordering Provider: Timothy Win D.O. PROCEDURE: US ABDOMEN LIMITED INDICATIONS: RUQ PAIN EVAL FOR GB TECHNIQUE: Real-time focused scanning was performed of the abdomen, with image documentation. COMPARISON: [facility], MR, MR ABDOMEN WO CON, 10/18/2020, 12:03. [facility], US, US ABDOMEN LIMITED, 10/18/2020, 0:40. FINDINGS: The liver is enlarged, yet it demonstrates echogenicity within normal limits. Small gallstones can be seen within the gallbladder. The fundus of the gallbladder appears mildly irregular, the gallbladder wall does not appear frankly thickened. No specific pericholecystic fluid is seen. The sonographic Ryan sign cannot be properly assessed, secondary to the patient's medicated state. There is no biliary dilatation, the common bile duct measures 6 mm. Echogenic material is seen within the common bile duct. Prominent intrahepatic ducts are seen, left greater than right. The pancreas is not well seen. IMPRESSION: Small gallstones can be seen with an irregular fundus of the gallbladder, yet without additional sonographic signs of cholecystitis. Mild intrahepatic biliary ductal dilatation is seen. Echogenic material can be seen within the common bile duct, which may be related to stones. However, the common bile duct does not appear enlarged. If clinically appropriate, a follow-up MRCP could be considered for further evaluation (assuming that there is no contraindication to MRI). Dictated by: Cornel Beltran M.D. on 11/04/2020 at 13:35 Approved by: Cornel Beltran M.D. on 11/04/2020 at 13:38 ECG Data Attestation: I personally reviewed and interpreted this ECG as follows: Interpretation: Sinus bradycardia Ventricular rate of 47 Normal axis Normal QRS Normal QTC No ST T wave changes MDM Narrative Medical decision making narrative: Patient is physical exam and labs today is consistent with gallstone pancreatitis. This does fit his presenting symptoms. Patient does have pancytopenia. Unknown etiology for this. Has an elevation in his bilirubin and also LFTs and also lipase. Discussed the case with Dr. Espino on-call with General surgery who recommended patient be transferred to a facility that has GI/your CP capability and also capability for Hematology and General surgery. Patient not hypotensive. Was given antibiotics. Not septic. Prior ultrasound/CT scan/MRCP reports are included with this note for reference purposes. The ultrasound from today is also included. I did discuss the case with Dr. Petty with Internal Medicine at [facility] who accepts the patient in transfer. I did discuss the need for the transfer with the patient. He expressed understanding and agreement. Discharge Plan Departure Patient Disposition: [facility] Clinical Impression: Acute gallstone pancreatitis, Pancytopenia Prescriptions: No Action multivitamin [Multiple Vitamins] 1 EACH tablet 1 tab PO QDAY Qty: 0 RF: 0 tamsulosin [Flomax] 0.4 mg Capsule,Extended Release 24hr 0.4 mg PO DAILY RF: 0 lisinopril 5 mg Tablet 5 mg PO DAILY RF: 0 gabapentin 100 mg Capsule 100 mg PO DAILY RF: 0 gabapentin 100 mg Capsule 300 mg PO BEDTIME PRN (Reason: Muscle Pain) RF: 0 lisinopril-hydrochlorothiazide 20-25 mg tablet 10 - 12.5 tab PO DAILY RF: 0 pantoprazole 40 mg tablet,delayed release (DR/EC) 40 mg PO BID 60 Days Qty: 120 RF: 0 ferrous sulfate 325 mg (65 mg iron) tablet 325 mg PO Q OTHER DAY 60 Days Qty: 30 RF: 0 Referrals: Nancy Simmons MD [Primary Care Provider] -
[2020-11-04 13:54] LABS: Macrocytosis 1+
[2020-11-04 13:59] LABS: Lipase 13715 U/L (23-300)
[2020-11-04] MEDS: MORPHINE 4 MG/ML INJ IV (13:59)
--- NOTE | 2020-11-04 14:34 | PC.NURSE ---
Notified MD of bradycardia post intermediate designer, no new orders.
[2020-11-04] MEDS: SODIUM CHLORIDE 0.9% 1,000 ML 125 ML IV (15:26)
[2020-11-04] MEDS: PIPERACILLIN/TAZO 4.5 GM in SODIUM CHLORIDE 0.9% 100 ML 200 ML IV (15:26)
[2020-11-04 16:28] LABS: COVID19 - ADMIT (NP swab/PCR) Negative (Negative)
== END 2020-11-04 19:00 | disposition short-term general hospital (02) ==
PROVIDERS: Emergency Provider Emergency Medicine; PCP Internal Medicine
DX: K85.10 Biliary acute pancreatitis without necrosis or infection (principal); D61.818 Other pancytopenia; Z20.822 Contact with and (suspected) exposure to COVID-19
CPT/HCPCS: 36415; 76705; 80053; 83690; 85007; 85025; 87635; 93005; 93010; 96361; 96365; 96366; 96375; 99284; C9803; J2270; J2543

== ENCOUNTER 2020-11-11 23:23 | Emergency (ER) | payer OTHER, SELFPAY ==
[2020-10-18 03:09] VITALS: BMI 24.7
[2020-11-11 23:35] VITALS: BP 197/88; PULSE 98; RESP 21; TEMP 37.8; O2SAT 98
--- NOTE | 2020-11-11 23:48 | DI.RAD.S_ITS ---
PROCEDURE: XR CHEST 1V INDICATIONS: suspected sepsis TECHNIQUE: One view of the chest was acquired. COMPARISON: [facility], CR, XR CHEST 1V, 02/03/2019, 20:33. FINDINGS: Surgical changes and devices: None. Lungs and pleura: Lungs are clear. No pleural effusions or pneumothorax. Mediastinum: Mediastinal contours appear normal. Heart size is normal. Bones and chest wall: No suspicious bony lesions. Overlying soft tissues appear unremarkable. IMPRESSION: No acute cardiopulmonary disease process. Dictated by: Madison Stephen MD, PhD on 11/12/2020 at 7:34 Approved by: Madison Stephen MD, PhD on 11/12/2020 at 7:35
[2020-11-11 23:50] VITALS: BP 207/97; PULSE 104; RESP 22; O2SAT 97
[2020-11-12] VITALS (18 sets, daily range): BP systolic 150–190; BP diastolic 69–108; PULSE 72–103; RESP 9–34; TEMP 37.3–37.9; O2SAT 90–97
[2020-11-12] MEDS: SODIUM CHLORIDE 0.9% 1,000 ML 1000 ML IV (00:13)
[2020-11-12 00:16] LABS: Hematocrit 26.4 % (41-53); Hemoglobin 8.9 g/dL (13.5-17.5); Mean Corpuscular HGB Conc 33.6 % (30-36); Mean Corpuscular Volume 104.1 fL (80-100); Platelet Count 93 X10^3/uL (150-400); Red Blood Cell Count 2.53 X10^6/uL (4.5-5.9); Red Cell Distribution Width 14.2 % (11.6-14.8); White Blood Cell Count 3.7 X10^3/uL (4.5-11.0)
[2020-11-12 00:17] LABS: Add Manual Diff / Slide Review YES
[2020-11-12 00:24] LABS: Lactate (Lactic Acid) 1.3 mmol/L (0.7-2.1)
[2020-11-12 00:25] LABS: Alanine Aminotransferase 41 IU/L (<50); Albumin 3.9 g/dL (3.5-5.0); Albumin Globulin Ratio 1.1 (1.0-2.8); Alkaline Phosphatase 207 U/L (38-126); Aspartate Aminotransferase 37 IU/L (17-59); BUN Creatinine Ratio 16.4 (6-22); Bilirubin Total 0.9 mg/dL (0.2-1.3); Blood Urea Nitrogen 19 mg/dL (9-20); Calcium 8.6 mg/dL (8.4-10.2); Carbon Dioxide 24 mmol/L (22-32); Chloride 106 mmol/L (98-107); Estimated Glomerular Filt Rate > 60.0 mL/min (>60); Globulin 3.5 g/dL (1.7-4.1); Glucose 118 mg/dL (80-110); HEMOLYSIS < 15 (0-50); Lipase 185 U/L (23-300); Potassium 4.2 mmol/L (3.4-5.1); Sodium 139 mmol/L (137-145); Total Protein 7.4 g/dL (6.3-8.2)
[2020-11-12 00:41] LABS: Procalcitonin 0.26 ng/mL (<0.5)
--- NOTE | 2020-11-12 01:18 | ED_ITS ---
HPI - General Adult General Chief complaint: Fever Stated complaint: temp 99 pain in gall bladder area Time Seen by Provider: 11/12/20 00:08 Source: patient Mode of arrival: Ambulatory Limitations: no limitations History of Present Illness HPI narrative: 80-year-old gentleman with history of hypertension, reflux, BPH and recurrent episodes with acute cholecystitis and gallstone pancreatitis presents with complaints of pain and fever. He is apparently DNR with limited interventions, was scheduled for an outpatient cholecystectomy but present to the emergency department on 11/04 with gallstone pancreatitis and pancytopenia. Patient was subsequently transferred to [facility] where additional capacity including General surgery GI, ERCP as well as Hematology-Oncology consultants would all be available. He states that he is a bit nauseated but has not had any actual emesis. The pain is in his right upper quadrant similar to that that he would experience previously. No diarrhea or constipation. No acute neurologic changes. No headaches, chest pain or palpitations. 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 Recommendation is to repeat ERCP in 6 weeks to remove the stent. He was observed for 24 hours with no worsening pancreatitis Regarding his pancytopenia, initial impression was that was related to his pancreatitis and recommended that he follow-up as an outpatient with Hematology consultation if this continues to be an issue. Recommendation was also to follow up as planned with [facility] surgery team for elective cholecystectomy Related Data Home Medications Medication Instructions Recorded Confirmed multivitamin (Multiple Vitamins) 1 tab PO QDAY #0 07/05/17 10/18/20 gabapentin 100 mg capsule 100 mg PO DAILY 08/04/17 10/18/20 gabapentin 100 mg capsule 300 mg PO BEDTIME PRN 08/04/17 10/18/20 lisinopril 5 mg tablet 5 mg PO DAILY 08/04/17 10/18/20 tamsulosin 0.4 mg capsule (Flomax) 0.4 mg PO DAILY 08/04/17 10/18/20 lisinopril 20 10 - 12.5 tab PO DAILY 07/18/19 10/18/20 mg-hydrochlorothiazide 25 mg tablet Previous Rx's Medication Instructions Recorded ferrous sulfate 325 mg (65 mg 325 mg PO Q OTHER DAY 60 Days #30 10/20/20 iron) tablet tab pantoprazole 40 mg tablet,delayed 40 mg PO BID 60 Days #120 tab 10/20/20 release oxycodone-acetaminophen 5 mg-325 1 tab PO Q6H PRN #10 tab 11/12/20 mg tablet Allergies Allergy/AdvReac Type Severity Reaction Status Date / Time No Known Drug Allergies Allergy Verified 10/20/20 13:45 Review of Systems Review of Systems Narrative: Remainder of complete review of systems is otherwise unremarkable except for that included in the HPI. Patient History Medical History Acute cholecystitis Acute pancreatitis Bowel obstruction BPH (benign prostatic hyperplasia) Hypertension Pancytopenia Family History Mother Old age Father Myocardial infarction Social History marital status: household members: spouse Smoking Status: Never smoker alcohol intake: current Smoking Status: Never smoker alcohol intake frequency: 0-2 drinks per day Substance Use Type: marijuana Exam Narrative Exam Narrative: General: Somewhat pale, chronically ill-appearing able to participate fully in discussion and exam HEENT: Moist mucous membranes, normal sclera with reactive pupils, no scleral icterus Neck: No JVD, supple Respiratory: Lungs with some mild rhonchi in the left anterior lung espinoza but no wheeze, no bibasilar crackles. Full and symmetrical air movement Cardiac: Regular rate and rhythm no murmurs no bruits Abdomen: Soft, mildly tender in the right upper quadrant without rebound or guarding. Good bowel tones, no flank pain Skin: Pale, Warm and dry, no rashes Neurologic: Globally weak but otherwise Grossly neurologically intact with no obvious asymmetries or abnormalities Extremities: No trauma, well perfused Psych: Cooperative, appropriate insight and affect Initial Vital Signs Initial Vital Signs: Vital Signs Temperature 100.1 F H 11/11/20 23:35 Pulse Rate 98 H 11/11/20 23:35 Respiratory Rate 21 11/11/20 23:35 Blood Pressure 197/88 H 11/11/20 23:35 Pulse Oximetry 98 11/11/20 23:35 Course Orders Ordered: ED Orders 11/11/20 23:48 XR chest 1V Stat EKG-12 Lead Stat RT Consult Eval and Treat Now 11/11/20 23:59 Blood Culture Stat Complete Blood Count AUTO DIFF Stat Comprehensive Metabolic Panel Stat Lactate (Lactic Acid) Stat Lipase Stat Procalcitonin Stat Hydromorphone HCl (Hydromorphone 0.5 Mg Inj) 0.5 mg IV Q15MIN PRN PRN Reason: Pain, Last Admin: 11/12/20 02:48 Dose: 0.5 mg Documented by: SASHA Discontinued Medications Sodium Chloride (Normal Saline 0.9%) 1,000 mls @ 1,000 mls/hr IV BOLUS ONE Stop: 11/12/20 00:47 Last Infusion: 11/12/20 01:39 Dose: 0 mls/hr Documented by: Admin: 11/12/20 00:13 Dose: 1,000 mls/hr Documented by: SASHA Piperacillin Sod/Tazobactam (Sod 4.5 gm/ Sodium Chloride) 100 mls @ 200 mls/hr IV NOW ONE Stop: 11/12/20 02:33 Last Infusion: 11/12/20 03:22 Dose: 0 mls/hr Documented by: Admin: 11/12/20 02:41 Dose: 200 mls/hr Documented by: SASHA Ondansetron HCl (Ondansetron 4 Mg/2 Ml Inj) 4 mg IV NOW ONE Stop: 11/12/20 02:33 Last Admin: 11/12/20 02:42 Dose: 4 mg Documented by: SASHA Vital Signs Vital signs: Vital Signs - 8 hr 11/11/20 23:35 Temperature 100.1 F H Pulse Rate 98 H Respiratory Rate 21 Blood Pressure 197/88 H Pulse Oximetry 98 Medical Decision Making Lab Data Result diagrams: 11/11/20 23:59 11/11/20 23:59 Labs: Lab Results 11/11/20 11/11/20 11/11/20 Range/Units 23:59 23:59 23:59 WBC 3.7 L (4.5-11.0) X10^3/uL RBC 2.53 L (4.5-5.9) X10^6/uL Hgb 8.9 L (13.5-17.5) g/dL Hct 26.4 L (41-53) % MCV 104.1 H (80-100) fL MCH 35.0 H (26-34) PG MCHC 33.6 (30-36) % RDW 14.2 (11.6-14.8) % Plt Count 93 L (150-400) X10^3/uL Neut % (Auto) Not Reportable Lymph % (Auto) Not Reportable [place] % (Auto) Not Reportable Eos % (Auto) Not Reportable Baso % (Auto) Not Reportable Lymph # (Auto) Not Reportable [place] # (Auto) Not Reportable Baso # (Auto) Not Reportable Total Counted 100 Seg Neutrophils % 25.0 L (38-70) % Band Neutrophils % 11.0 H (3-7) % Lymphocytes % (Manual) 30.0 (25-45) % Monocytes % (Manual) 30.0 H (2-11) % Metamyelocytes % 1.0 H (-0) % Myelocytes % 3.0 H (-0) % Neutrophils # (Manual) 1332 L (6175-3225) /uL Platelet Estimate Decreased on smear Plt Morphology Comment 1+ large plts RBC Morphology See below Hypochromasia 1+ H Anisocytosis 1+ H Macrocytosis 1+ H Sodium 139 (137-145) mmol/L Potassium 4.2 (3.4-5.1) mmol/L Chloride 106 (98-107) mmol/L Carbon Dioxide 24 (22-32) mmol/L BUN 19 (9-20) mg/dL Creatinine 1.16 (0.66-1.25) mg/dL Estimated GFR > 60.0 (>60) mL/min BUN/Creatinine Ratio 16.4 (6-22) Glucose 118 H (80-110) mg/dL Lactate 1.3 (0.7-2.1) mmol/L Calcium 8.6 (8.4-10.2) mg/dL Total Bilirubin 0.9 (0.2-1.3) mg/dL AST 37 (17-59) IU/L ALT 41 (<50) IU/L Alkaline Phosphatase 207 H (38-126) U/L Total Protein 7.4 (6.3-8.2) g/dL Albumin 3.9 (3.5-5.0) g/dL Globulin 3.5 (1.7-4.1) g/dL Albumin/Globulin Ratio 1.1 (1.0-2.8) Lipase 185 D (23-300) U/L Procalcitonin 0.26 (<0.5) ng/mL Imaging Data Chest x-ray: My Impression: Independently reviewed. Compared to chest x-ray of 1123 and unchanged. Radiologist's Impression: Patchy interstitial changes may reflect mild acute pneumonitis or chronic changes. No consolidation Daniel quintero MD [facility] Narrative Medical decision making narrative: 80-year-old gentleman with recurrent right upper quadrant pain. Recent hospitalization with pancreatitis and ERCP with biliary stent placed. He is post to follow-up with [facility] to have an outpatient cholecystectomy. Entire situation is complicated by a unexplained pancytopenia. Patient comes in today with right upper quadrant pain was easily controlled with a half a mg of Dilaudid. Records are obtained from [facility]. At this time, he is not showing any evidence of acute cholecystitis or pancreatitis. He is safe for home discharge. He has an appointment scheduled with [facility] on November 13. He is comfortable with going home. Will give him the packet of medical records from [facility] for him to take with him to the November 13 appointment to hopefully facilitate that visit. He believes he does have some pain medicine prescriptions that came home with him from his [facility] stay but he has not ?really gone through that packet?. At this time, he is safe for home discharge with a diagnosis of right upper quadrant pain known biliary stenosis, cholelithiasis without evidence of acute cholecystitis Discharge Plan Departure Patient Disposition: Home Clinical Impression: Pancytopenia, Biliary duct stenosis Cholelithiasis Qualifiers: Cholelithiasis location: gallbladder Cholecystitis presence: without cholecystitis Biliary obstruction: without biliary obstruction Qualified Code(s): K80.20 - Calculus of gallbladder without cholecystitis without obstruction Instructions: DI for Gallstones Activity Restrictions/Additional Instructions: Thank you for coming in today You do not have any evidence of recurrent pancreatitis or acute cholecystitis. I suspect your right upper quadrant pain is from your known gallstones and the biliary stent that is in place. Please look through your discharge medications sent home from [facility], I suspect that there is a prescription for pain medication that was meant for this situation If there is not a prescription included, please feel free to fill the Percocet prescription that I have included. I have given you all of the medical records from your [facility] discharge summary. Please take these to your [facility] surgery consultation on November 13. It will be very helpful in coordinating all of your care. If you find that you are getting worse, please return to the ER Prescriptions: New oxycodone-acetaminophen 5-325 mg tablet 1 tab PO Q6H PRN (Reason: pain) Qty: 10 RF: 0 No Action multivitamin [Multiple Vitamins] 1 EACH tablet 1 tab PO QDAY Qty: 0 RF: 0 tamsulosin [Flomax] 0.4 mg Capsule,Extended Release 24hr 0.4 mg PO DAILY RF: 0 lisinopril 5 mg Tablet 5 mg PO DAILY RF: 0 gabapentin 100 mg Capsule 100 mg PO DAILY RF: 0 gabapentin 100 mg Capsule 300 mg PO BEDTIME PRN (Reason: Muscle Pain) RF: 0 lisinopril-hydrochlorothiazide 20-25 mg tablet 10 - 12.5 tab PO DAILY RF: 0 pantoprazole 40 mg tablet,delayed release (DR/EC) 40 mg PO BID 60 Days Qty: 120 RF: 0 ferrous sulfate 325 mg (65 mg iron) tablet 325 mg PO Q OTHER DAY 60 Days Qty: 30 RF: 0 Referrals: Nancy Simmons MD [Primary Care Provider] -
[2020-11-12] MEDS: PIPERACILLIN/TAZO 4.5 GM in SODIUM CHLORIDE 0.9% 100 ML 200 ML IV (02:41)
[2020-11-12] MEDS: ONDANSETRON 4 MG/2 ML INJ IV (02:42)
[2020-11-12] MEDS: HYDROMORPHONE 0.5 MG INJ IV (02:48)
[2020-11-12 03:50] LABS: Neutrophils Absolute Manual 1332 /uL (3000-5900); Total Cells Counted 100
[2020-11-12 03:51] LABS: Platelet Estimate Decreased on smear
[2020-11-12 03:52] LABS: Anisocytosis 1+; Hypochromasia 1+; Macrocytosis 1+
[2020-11-12 15:00] LABS: Acinetobacter baumannii Not Detected (Not Detect); Candida albicans Not Detected (Not Detect); Candida glabrata Not Detected (Not Detect); Candida krusei Not Detected (Not Detect); Candida parapsilosis Not Detected (Not Detect); Candida tropicalis Not Detected (Not Detect); E. coli Not Detected (Not Detect); Enterobacter cloacae complex Detected (Not Detect); Enterobacteriaceae species Detected (Not Detect); Enterococcus species Not Detected (Not Detect); Haemophilus influenzae Not Detected (Not Detect); KPC (carbapenem-resist gene) Not Detected (Not Detect); Listeria monocytogenes Not Detected (Not Detect); Neisseria meningitidis Not Detected (Not Detect); Proteus species Not Detected (Not Detect); Pseudomonas aeruginosa Not Detected (Not Detect); Serratia marcescens Not Detected (Not Detect); Staphylococcus species Not Detected (Not Detect); Streptococcus agalactiae (Gr B Not Detected (Not Detect); Streptococcus pneumonia Not Detected (Not Detect); Streptococcus pyogenes (Gr A) Not Detected (Not Detect); Streptococcus species Not Detected (Not Detect)
== END 2020-11-12 08:26 | disposition home or self-care (01) ==
PROVIDERS: Emergency Provider Emergency Medicine; PCP Internal Medicine
DX: D61.818 Other pancytopenia (principal); K80.70 Calculus of gallbladder and bile duct without cholecystitis without obstruction
CPT/HCPCS: 36415; 71045; 80053; 81003; 83605; 83690; 84145; 85007; 85025; 87040; 87150; 87186; 87205; 96361; 96365; 96375; 99284; J1170; J2405; J2543

== ENCOUNTER 2020-11-12 16:25 | Emergency (ER) | payer OTHER, SELFPAY ==
[2020-10-18 03:09] VITALS: BMI 24.7
[2020-11-12] VITALS (25 sets, daily range): BP systolic 114–157; BP diastolic 56–74; PULSE 36–85; RESP 12–24; TEMP 36.4–38.5; O2SAT 88–100
--- NOTE | 2020-11-12 16:41 | DI.RAD.S_ITS ---
PROCEDURE: XR CHEST 1V INDICATIONS: suspected sepsis TECHNIQUE: One view of the chest was acquired. COMPARISON: [facility], CR, XR CHEST 1V, 02/03/2019, 20:33. [facility], CR, XR CHEST 1V, 11/12/2020, 0:03. FINDINGS: Surgical changes and devices: None. Lungs and pleura: Mild, streaky opacities are seen at the lung bases. No pleural effusions or pneumothorax. Mediastinum: Mediastinal contours appear normal. Heart size is normal. Atherosclerotic calcification of the aortic arch is noted. Bones and chest wall: No suspicious bony lesions. Age-appropriate bony degenerative changes are seen. Overlying soft tissues appear unremarkable. IMPRESSION: Presumed atelectasis is seen at the lung bases. Differential diagnosis includes minimal/early infiltrate, yet this is considered to be less likely. If there is clinical concern for a developing pulmonary process, a short-term followup chest series (with PA and lateral views, performed in deep inspiration) is suggested for further evaluation. Dictated by: Cornel Beltran M.D. on 11/12/2020 at 16:03 Approved by: Cornel Beltran M.D. on 11/12/2020 at 16:04
[2020-11-12 16:53] LABS: Hematocrit 22.5 % (41-53); Hemoglobin 7.7 g/dL (13.5-17.5); Mean Corpuscular HGB Conc 34.1 % (30-36); Mean Corpuscular Hemoglobin 35.4 PG (26-34); Mean Corpuscular Volume 103.8 fL (80-100); Platelet Count 79 X10^3/uL (150-400); Red Blood Cell Count 2.17 X10^6/uL (4.5-5.9); Red Cell Distribution Width 14.4 % (11.6-14.8); White Blood Cell Count 4.1 X10^3/uL (4.5-11.0)
[2020-11-12 16:55] LABS: Add Manual Diff / Slide Review YES
[2020-11-12 17:21] LABS: Creatine Kinase 52 U/L (55-170)
[2020-11-12 17:23] LABS: Alanine Aminotransferase 30 IU/L (<50); Albumin 3.3 g/dL (3.5-5.0); Alkaline Phosphatase 143 U/L (38-126); Aspartate Aminotransferase 28 IU/L (17-59); Bilirubin Total 0.8 mg/dL (0.2-1.3); Blood Urea Nitrogen 23 mg/dL (9-20); Calcium 8.1 mg/dL (8.4-10.2); Carbon Dioxide 23 mmol/L (22-32); Chloride 109 mmol/L (98-107); Estimated Glomerular Filt Rate 57.7 mL/min (>60); Globulin 3.4 g/dL (1.7-4.1); Glucose 115 mg/dL (80-110); HEMOLYSIS < 15 (0-50); Lactate (Lactic Acid) 1.3 mmol/L (0.7-2.1); Lipase 94 U/L (23-300); Potassium 4.1 mmol/L (3.4-5.1); Sodium 139 mmol/L (137-145); Total Protein 6.7 g/dL (6.3-8.2)
[2020-11-12 17:24] LABS: Neutrophils Absolute Manual 1927 /uL (3000-5900); Total Cells Counted 100
[2020-11-12 17:25] LABS: Platelet Estimate Decreased on smear
[2020-11-12 17:26] LABS: Macrocytosis 1+; Platelet Morphology Comment NOTE; Polychromasia 1+
[2020-11-12] MEDS: SODIUM CHLORIDE 0.9% 1,000 ML 1000 ML IV (17:31)
[2020-11-12 17:33] LABS: NT-proBNP (BNP-Adult 18+) 9530 pg/mL (<450); Troponin I 0.116 ng/mL (0.01-0.034)
[2020-11-12 17:39] LABS: Procalcitonin 0.73 ng/mL (<0.5)
[2020-11-12 17:52] LABS: COVID19 -Nasal RAPID Negative (Negative)
--- NOTE | 2020-11-12 18:04 | ED.FEVER ---
HPI - Fever <Lawrence Montejo DO - Last Filed: 11/15/20 02:47> General Chief Complaint: Fever Stated Complaint: Fever Time Seen by Provider: 11/12/20 16:50 Source: patient and EMS Mode of arrival: EMS Limitations: no limitations History of Present Illness HPI Narrative: 80-year-old male nonsmoker presents for the 2nd time today and evaluation of worsening fever, chills and general malaise. The patient has significant recent medical history significant for acute cholecystitis, transfer to [facility] for ERCP, resultant stenting and scheduled with [facility] tomorrow morning to discuss outpatient cholecystectomy. He was evaluated over the course of the night into this morning and to medications and was therefore discharged home. He returns due to increasing fever as high as 104, shaking chills. He complains only of generalized weakness, fatigue and fever with nausea. He has no ongoing chest pain or shortness of breath. He has no abdominal pain or vomiting. He denies any change in appetite. He denies dysuria, frequency or urgency. Related Data Home Medications Medication Instructions Recorded Confirmed multivitamin (Multiple Vitamins) 1 tab PO QDAY #0 07/05/17 10/18/20 gabapentin 100 mg capsule 100 mg PO DAILY 08/04/17 10/18/20 gabapentin 100 mg capsule 300 mg PO BEDTIME PRN 08/04/17 10/18/20 lisinopril 5 mg tablet 5 mg PO DAILY 08/04/17 10/18/20 tamsulosin 0.4 mg capsule (Flomax) 0.4 mg PO DAILY 08/04/17 10/18/20 lisinopril 20 10 - 12.5 tab PO DAILY 07/18/19 10/18/20 mg-hydrochlorothiazide 25 mg tablet Previous Rx's Medication Instructions Recorded ferrous sulfate 325 mg (65 mg 325 mg PO Q OTHER DAY 60 Days #30 10/20/20 iron) tablet tab pantoprazole 40 mg tablet,delayed 40 mg PO BID 60 Days #120 tab 10/20/20 release oxycodone-acetaminophen 5 mg-325 1 tab PO Q6H PRN #10 tab 11/12/20 mg tablet Allergies Allergy/AdvReac Type Severity Reaction Status Date / Time No Known Drug Allergies Allergy Verified 10/20/20 13:45 Review of Systems <DO Rojas Newman Last Filed: 11/15/20 02:47> Review of Systems Narrative: GENERAL: See HPI HEENT: Denies sinus pain, ear pain, sore throat, difficulty swallowing, dizziness. RESPIRATORY: Denies dyspnea, cough, wheezing, hemoptysis, sputum. CARDIOVASCULAR: Denies chest pain, palpitations, orthopnea, edema, GASTROINTESTINAL: See HP : Denies dysuria, frequency, incontinence, hematuria, urinary retention. MUSCULOSKELETAL: denies weakness, joint pain, or bony pain SKIN: Denies rash, skin lesions, or other NEUROLOGIC: Denies weakness, headache, numbness, change in speech, confusion, seizures, incoordination. PSYCHIATRIC: No concerning psychosocial issues. 12 point review of systems is negative except for those stated above Patient History <Lawrence Montejo DO - Last Filed: 11/15/20 02:47> Medical History Acute cholecystitis Acute pancreatitis Bowel obstruction BPH (benign prostatic hyperplasia) Hypertension Pancytopenia Family History Mother Old age Father Myocardial infarction Social History marital status: household members: spouse Smoking Status: Never smoker alcohol intake: current Smoking Status: Never smoker alcohol intake frequency: 0-2 drinks per day Substance Use Type: marijuana Exam <Lawrence Montejo DO - Last Filed: 11/15/20 02:47> Narrative Exam Narrative: GENERAL: [80] year old patient appears stated age. Well-developed patient, in mild distress. HEAD: Atraumatic. Normocephalic. EYES: Pupils equal round and reactive. Extraocular motions intact. No scleral icterus. No injection or drainage. ENT: Nose without bleeding, purulent drainage. Throat without erythema, tonsillar hypertrophy or exudate. Airway patent. NECK: Trachea midline. Non tender CARDIOVASCULAR: Regular rate and rhythm without murmurs, gallops, or rubs. RESPIRATORY: Clear to auscultation. Breath sounds equal bilaterally. No wheezes, rales, or rhonchi. GASTROINTESTINAL: Abdomen soft, non-tender, nondistended. EXTREMITIES: No edema or joint tenderness. BACK: Nontender without deformity or crepitance. No flank tenderness. NEURO: AOx3. SKIN: No rash or erythema of visible areas Initial Vital Signs Initial Vital Signs: Vital Signs Temperature 101.3 F H 11/12/20 16:30 Pulse Rate 85 11/12/20 16:30 Respiratory Rate 24 11/12/20 16:30 Blood Pressure 157/74 H 11/12/20 16:30 Pulse Oximetry 90 L 11/12/20 16:30 <Duke Huff MD - Last Filed: 11/13/20 17:18> Initial Vital Signs Initial Vital Signs: Vital Signs Temperature 101.3 F H 11/12/20 16:30 Pulse Rate 85 11/12/20 16:30 Respiratory Rate 24 11/12/20 16:30 Blood Pressure 157/74 H 11/12/20 16:30 Pulse Oximetry 90 L 11/12/20 16:30 <Rosita Butler DO - Last Filed: 11/14/20 17:53> Initial Vital Signs Initial Vital Signs: Vital Signs Temperature 101.3 F H 11/12/20 16:30 Pulse Rate 85 11/12/20 16:30 Respiratory Rate 24 11/12/20 16:30 Blood Pressure 157/74 H 11/12/20 16:30 Pulse Oximetry 90 L 11/12/20 16:30 Course <Lawrence Montejo DO - Last Filed: 11/15/20 02:47> Course Course Narrative: The patient was initially managed by Dr. Montejo on prior shift. He awaits transfer, Benadryl being transmission of not yet been clarified. In the room he is receiving regular doses of antibiotics, and IV fluids. His vitals have been stable the duration the shift. Transfer is still planned.Bijal MCCOY 11/13/20 17:15. Patient received back in sign out. Resting comfortably. Night time HTN meds ordered. Pain controlled. Currently #1 on transfer list. Orders Ordered: Discontinued Medications Acetaminophen (Acetaminophen 325 Mg Tablet) 650 mg PO NOW ONE Stop: 11/13/20 09:52 Last Admin: 11/13/20 10:14 Dose: 650 mg Documented by: HECTOR Aspirin (Aspirin 81 Mg Chew Tab) 324 mg PO NOW ONE Stop: 11/12/20 17:53 Last Admin: 11/12/20 18:09 Dose: 324 mg Documented by: SANDOVAL Furosemide (Furosemide 40 Mg/4 Ml Vial) 40 mg IV NOW ONE Stop: 11/12/20 17:53 Last Admin: 11/12/20 18:09 Dose: 40 mg Documented by: SANDOVAL Gabapentin (Gabapentin 100 Mg Capsule) 100 mg PO NOW ONE Stop: 11/14/20 06:25 Last Admin: 11/14/20 06:42 Dose: 100 mg Documented by: AUGUSTO Hydralazine HCl (Hydralazine 20 Mg/Ml Vial) 10 mg IV NOW ONE Stop: 11/13/20 14:45 Last Admin: 11/13/20 14:54 Dose: 10 mg Documented by: ERIKA Hydrochlorothiazide (Hydrochlorothiazide 25 Mg Tablet) 12.5 mg PO NOW ONE Stop: 11/13/20 20:25 Last Admin: 11/13/20 20:50 Dose: 12.5 mg Documented by: ERIKA Hydrochlorothiazide (Hydrochlorothiazide 25 Mg Tablet) 25 mg PO NOW ONE Stop: 11/14/20 06:24 Last Admin: 11/14/20 06:42 Dose: 25 mg Documented by: AUGUSTO Hydromorphone HCl (Hydromorphone 0.5 Mg Inj) 0.5 mg IV NOW ONE Stop: 11/13/20 02:08 Last Admin: 11/13/20 02:16 Dose: 0.5 mg Documented by: AUGUSTO Sodium Chloride (Normal Saline 0.9%) 1,000 mls @ 1,000 mls/hr IV BOLUS ONE Stop: 11/12/20 17:40 Last Infusion: 11/12/20 19:51 Dose: 0 mls/hr Documented by: Admin: 11/12/20 17:31 Dose: 1,000 mls/hr Documented by: SANDOVAL Piperacillin Sod/Tazobactam (Sod 4.5 gm/ Sodium Chloride) 100 mls @ 200 mls/hr IV NOW ONE Stop: 11/12/20 17:53 Last Infusion: 11/12/20 19:51 Dose: 0 mls/hr Documented by: Admin: 11/12/20 18:09 Dose: 200 mls/hr Documented by: SANDOVAL Sodium Chloride (Normal Saline 0.9%) 1,000 mls @ 150 mls/hr IV BOLUS ONE Stop: 11/13/20 06:38 Last Infusion: 11/13/20 06:03 Dose: 0 mls/hr Documented by: Admin: 11/13/20 00:18 Dose: 150 mls/hr Documented by: AUGUSTO Piperacillin Sod/Tazobactam (Sod 4.5 gm/ Sodium Chloride) 100 mls @ 25 mls/hr IV Q8H ON LICENSE OF [facility] Last Infusion: 11/14/20 14:04 Dose: 0 mls/hr Documented by: Admin: 11/14/20 09:54 Dose: 25 mls/hr Documented by: Infusion: 11/14/20 05:28 Dose: 0 mls/hr Documented by: Admin: 11/14/20 01:55 Dose: 25 mls/hr Documented by: Infusion: 11/13/20 22:55 Dose: 0 mls/hr Documented by: Admin: 11/13/20 18:48 Dose: 25 mls/hr Documented by: Infusion: 11/13/20 14:18 Dose: 0 mls/hr Documented by: Admin: 11/13/20 10:15 Dose: 25 mls/hr Documented by: Infusion: 11/13/20 05:46 Dose: 0 mls/hr Documented by: Admin: 11/13/20 02:16 Dose: 25 mls/hr Documented by: AUGUSTO Sodium Chloride (Normal Saline 0.9%) 1,000 mls @ 100 mls/hr IV CONT MARIE Last Infusion: 11/14/20 16:33 Dose: 0 mls/hr Documented by: Admin: 11/14/20 07:59 Dose: 100 mls/hr Documented by: NISHA Lisinopril (Lisinopril 20 Mg Tablet) 20 mg PO NOW ONE Stop: 11/13/20 20:25 Last Admin: 11/13/20 20:52 Dose: 20 mg Documented by: ERIKA Lisinopril (Lisinopril 20 Mg Tablet) 20 mg PO NOW ONE Stop: 11/14/20 06:24 Last Admin: 11/14/20 06:41 Dose: 20 mg Documented by: AUGUSTO Pantoprazole Sodium (Pantoprazole 40 Mg Vial) 40 mg IV NOW ONE Stop: 11/14/20 06:25 Last Admin: 11/14/20 06:31 Dose: 40 mg Documented by: AUGUSTO Reevaluation(s) Reevaluation #1: patient resting comfortably. Pain well controlled. Informed of findings and consultations, in agreement and with understanding of the plan Consultations Consultation #1: discussed with database administration manager General Surgery (Barbie). Given complexity of case most recently, and also troponin bump the patient exceeds the capacity of our facility Consultation #2: call to General Surgery at (Mae), happy to be involved in consultation and agrees with need for surgical evaluation, however requests admission to hospitalist given troponin Consultation #3: call to hospitalist at , happy to accept. Working on a bed, not likely this shift, more likely in the am. Vital Signs Vital signs: Vital Signs - 8 hr 11/14/20 10:00 11/14/20 10:01 11/14/20 10:30 Temperature Pulse Rate 55 L 58 L 46 L Respiratory Rate 7 L 10 L 15 Blood Pressure 170/81 H Pulse Oximetry 95 94 95 11/14/20 11:00 11/14/20 11:30 11/14/20 11:45 Temperature Pulse Rate 50 L 61 45 L Respiratory Rate 14 15 12 Blood Pressure Pulse Oximetry 95 96 97 11/14/20 12:00 11/14/20 12:15 11/14/20 12:30 Temperature Pulse Rate 61 42 L Respiratory Rate 12 18 Blood Pressure 180/82 H Pulse Oximetry 96 96 95 11/14/20 12:37 11/14/20 12:45 11/14/20 13:00 Temperature Pulse Rate 73 90 60 Respiratory Rate 21 7 L Blood Pressure 187/88 H Pulse Oximetry 96 96 97 11/14/20 13:15 11/14/20 13:30 11/14/20 13:45 Temperature Pulse Rate 66 59 L Respiratory Rate 4 L 16 Blood Pressure Pulse Oximetry 96 96 96 11/14/20 14:00 11/14/20 14:15 11/14/20 14:30 Temperature Pulse Rate 63 63 102 H Respiratory Rate 15 16 17 Blood Pressure 186/130 H Pulse Oximetry 96 95 97 11/14/20 14:45 11/14/20 15:00 11/14/20 15:15 Temperature Pulse Rate 62 56 L 58 L Respiratory Rate 17 11 L 15 Blood Pressure Pulse Oximetry 96 97 98 11/14/20 15:30 11/14/20 15:45 11/14/20 16:00 Temperature Pulse Rate 52 L 70 77 Respiratory Rate 9 L 20 23 Blood Pressure 199/92 H Pulse Oximetry 97 96 97 11/14/20 16:15 11/14/20 16:30 11/14/20 16:31 Temperature 98 F 97.5 F L Pulse Rate 63 54 L Respiratory Rate 17 14 Blood Pressure 200/76 H Pulse Oximetry 96 96 <Duke Huff MD - Last Filed: 11/13/20 17:18> Course Course Narrative: The patient was initially managed by Dr. Montejo on prior shift. He awaits transfer, Benadryl being transmission of not yet been clarified. In the room he is receiving regular doses of antibiotics, and IV fluids. His vitals have been stable the duration the shift. Transfer is still planned.-Soledad MCCOY 11/13/20 17:15. Orders Ordered: Discontinued Medications Acetaminophen (Acetaminophen 325 Mg Tablet) 650 mg PO NOW ONE Stop: 11/13/20 09:52 Last Admin: 11/13/20 10:14 Dose: 650 mg Documented by: HECTOR Aspirin (Aspirin 81 Mg Chew Tab) 324 mg PO NOW ONE Stop: 11/12/20 17:53 Last Admin: 11/12/20 18:09 Dose: 324 mg Documented by: SANDOVAL Furosemide (Furosemide 40 Mg/4 Ml Vial) 40 mg IV NOW ONE Stop: 11/12/20 17:53 Last Admin: 11/12/20 18:09 Dose: 40 mg Documented by: SANDOVAL Gabapentin (Gabapentin 100 Mg Capsule) 100 mg PO NOW ONE Stop: 11/14/20 06:25 Last Admin: 11/14/20 06:42 Dose: 100 mg Documented by: AUGUSTO Hydralazine HCl (Hydralazine 20 Mg/Ml Vial) 10 mg IV NOW ONE Stop: 11/13/20 14:45 Last Admin: 11/13/20 14:54 Dose: 10 mg Documented by: ERIKA Hydrochlorothiazide (Hydrochlorothiazide 25 Mg Tablet) 12.5 mg PO NOW ONE Stop: 11/13/20 20:25 Last Admin: 11/13/20 20:50 Dose: 12.5 mg Documented by: ATAYLOR Hydrochlorothiazide (Hydrochlorothiazide 25 Mg Tablet) 25 mg PO NOW ONE Stop: 11/14/20 06:24 Last Admin: 11/14/20 06:42 Dose: 25 mg Documented by: AUGUSTO Hydromorphone HCl (Hydromorphone 0.5 Mg Inj) 0.5 mg IV NOW ONE Stop: 11/13/20 02:08 Last Admin: 11/13/20 02:16 Dose: 0.5 mg Documented by: AUGUSTO Sodium Chloride (Normal Saline 0.9%) 1,000 mls @ 1,000 mls/hr IV BOLUS ONE Stop: 11/12/20 17:40 Last Infusion: 11/12/20 19:51 Dose: 0 mls/hr Documented by: Admin: 11/12/20 17:31 Dose: 1,000 mls/hr Documented by: SANDOVAL Piperacillin Sod/Tazobactam (Sod 4.5 gm/ Sodium Chloride) 100 mls @ 200 mls/hr IV NOW ONE Stop: 11/12/20 17:53 Last Infusion: 11/12/20 19:51 Dose: 0 mls/hr Documented by: Admin: 11/12/20 18:09 Dose: 200 mls/hr Documented by: SANDOVAL Sodium Chloride (Normal Saline 0.9%) 1,000 mls @ 150 mls/hr IV BOLUS ONE Stop: 11/13/20 06:38 Last Infusion: 11/13/20 06:03 Dose: 0 mls/hr Documented by: Admin: 11/13/20 00:18 Dose: 150 mls/hr Documented by: AUGUSTO Piperacillin Sod/Tazobactam (Sod 4.5 gm/ Sodium Chloride) 100 mls @ 25 mls/hr IV Q8H MARIE Last Infusion: 11/14/20 14:04 Dose: 0 mls/hr Documented by: Admin: 11/14/20 09:54 Dose: 25 mls/hr Documented by: Infusion: 11/14/20 05:28 Dose: 0 mls/hr Documented by: Admin: 11/14/20 01:55 Dose: 25 mls/hr Documented by: Infusion: 11/13/20 22:55 Dose: 0 mls/hr Documented by: Admin: 11/13/20 18:48 Dose: 25 mls/hr Documented by: Infusion: 11/13/20 14:18 Dose: 0 mls/hr Documented by: Admin: 11/13/20 10:15 Dose: 25 mls/hr Documented by: Infusion: 11/13/20 05:46 Dose: 0 mls/hr Documented by: Admin: 11/13/20 02:16 Dose: 25 mls/hr Documented by: AUGUSTO Sodium Chloride (Normal Saline 0.9%) 1,000 mls @ 100 mls/hr IV CONT MARIE Last Infusion: 11/14/20 16:33 Dose: 0 mls/hr Documented by: Admin: 11/14/20 07:59 Dose: 100 mls/hr Documented by: NISHA Lisinopril (Lisinopril 20 Mg Tablet) 20 mg PO NOW ONE Stop: 11/13/20 20:25 Last Admin: 11/13/20 20:52 Dose: 20 mg Documented by: ERIKA Lisinopril (Lisinopril 20 Mg Tablet) 20 mg PO NOW ONE Stop: 11/14/20 06:24 Last Admin: 11/14/20 06:41 Dose: 20 mg Documented by: AUGUSTO Pantoprazole Sodium (Pantoprazole 40 Mg Vial) 40 mg IV NOW ONE Stop: 11/14/20 06:25 Last Admin: 11/14/20 06:31 Dose: 40 mg Documented by: AUGUSTO Vital Signs Vital signs: Vital Signs - 8 hr 11/14/20 10:00 11/14/20 10:01 11/14/20 10:30 Temperature Pulse Rate 55 L 58 L 46 L Respiratory Rate 7 L 10 L 15 Blood Pressure 170/81 H Pulse Oximetry 95 94 95 11/14/20 11:00 11/14/20 11:30 11/14/20 11:45 Temperature Pulse Rate 50 L 61 45 L Respiratory Rate 14 15 12 Blood Pressure Pulse Oximetry 95 96 97 11/14/20 12:00 11/14/20 12:15 11/14/20 12:30 Temperature Pulse Rate 61 42 L Respiratory Rate 12 18 Blood Pressure 180/82 H Pulse Oximetry 96 96 95 11/14/20 12:37 11/14/20 12:45 11/14/20 13:00 Temperature Pulse Rate 73 90 60 Respiratory Rate 21 7 L Blood Pressure 187/88 H Pulse Oximetry 96 96 97 11/14/20 13:15 11/14/20 13:30 11/14/20 13:45 Temperature Pulse Rate 66 59 L Respiratory Rate 4 L 16 Blood Pressure Pulse Oximetry 96 96 96 11/14/20 14:00 11/14/20 14:15 11/14/20 14:30 Temperature Pulse Rate 63 63 102 H Respiratory Rate 15 16 17 Blood Pressure 186/130 H Pulse Oximetry 96 95 97 11/14/20 14:45 11/14/20 15:00 11/14/20 15:15 Temperature Pulse Rate 62 56 L 58 L Respiratory Rate 17 11 L 15 Blood Pressure Pulse Oximetry 96 97 98 11/14/20 15:30 11/14/20 15:45 11/14/20 16:00 Temperature Pulse Rate 52 L 70 77 Respiratory Rate 9 L 20 23 Blood Pressure 199/92 H Pulse Oximetry 97 96 97 11/14/20 16:15 11/14/20 16:30 11/14/20 16:31 Temperature 98 F 97.5 F L Pulse Rate 63 54 L Respiratory Rate 17 14 Blood Pressure 200/76 H Pulse Oximetry 96 96 <Rosita Butler, DO - Last Filed: 11/14/20 17:53> Orders Ordered: Discontinued Medications Acetaminophen (Acetaminophen 325 Mg Tablet) 650 mg PO NOW ONE Stop: 11/13/20 09:52 Last Admin: 11/13/20 10:14 Dose: 650 mg Documented by: HECTOR Aspirin (Aspirin 81 Mg Chew Tab) 324 mg PO NOW ONE Stop: 11/12/20 17:53 Last Admin: 11/12/20 18:09 Dose: 324 mg Documented by: SANDOVAL Furosemide (Furosemide 40 Mg/4 Ml Vial) 40 mg IV NOW ONE Stop: 11/12/20 17:53 Last Admin: 11/12/20 18:09 Dose: 40 mg Documented by: SANDOVAL Gabapentin (Gabapentin 100 Mg Capsule) 100 mg PO NOW ONE Stop: 11/14/20 06:25 Last Admin: 11/14/20 06:42 Dose: 100 mg Documented by: AUGUSTO Hydralazine HCl (Hydralazine 20 Mg/Ml Vial) 10 mg IV NOW ONE Stop: 11/13/20 14:45 Last Admin: 11/13/20 14:54 Dose: 10 mg Documented by: ERIKA Hydrochlorothiazide (Hydrochlorothiazide 25 Mg Tablet) 12.5 mg PO NOW ONE Stop: 11/13/20 20:25 Last Admin: 11/13/20 20:50 Dose: 12.5 mg Documented by: ERIKA Hydrochlorothiazide (Hydrochlorothiazide 25 Mg Tablet) 25 mg PO NOW ONE Stop: 11/14/20 06:24 Last Admin: 11/14/20 06:42 Dose: 25 mg Documented by: AUGUSTO Hydromorphone HCl (Hydromorphone 0.5 Mg Inj) 0.5 mg IV NOW ONE Stop: 11/13/20 02:08 Last Admin: 11/13/20 02:16 Dose: 0.5 mg Documented by: AUGUSTO Sodium Chloride (Normal Saline 0.9%) 1,000 mls @ 1,000 mls/hr IV BOLUS ONE Stop: 11/12/20 17:40 Last Infusion: 11/12/20 19:51 Dose: 0 mls/hr Documented by: Admin: 11/12/20 17:31 Dose: 1,000 mls/hr Documented by: SANDOVAL Piperacillin Sod/Tazobactam (Sod 4.5 gm/ Sodium Chloride) 100 mls @ 200 mls/hr IV NOW ONE Stop: 11/12/20 17:53 Last Infusion: 11/12/20 19:51 Dose: 0 mls/hr Documented by: Admin: 11/12/20 18:09 Dose: 200 mls/hr Documented by: SANDOVAL Sodium Chloride (Normal Saline 0.9%) 1,000 mls @ 150 mls/hr IV BOLUS ONE Stop: 11/13/20 06:38 Last Infusion: 11/13/20 06:03 Dose: 0 mls/hr Documented by: Admin: 11/13/20 00:18 Dose: 150 mls/hr Documented by: AUGUSTO Piperacillin Sod/Tazobactam (Sod 4.5 gm/ Sodium Chloride) 100 mls @ 25 mls/hr IV Q8H MARIE Last Infusion: 11/14/20 14:04 Dose: 0 mls/hr Documented by: Admin: 11/14/20 09:54 Dose: 25 mls/hr Documented by: Infusion: 11/14/20 05:28 Dose: 0 mls/hr Documented by: Admin: 11/14/20 01:55 Dose: 25 mls/hr Documented by: Infusion: 11/13/20 22:55 Dose: 0 mls/hr Documented by: Admin: 11/13/20 18:48 Dose: 25 mls/hr Documented by: Infusion: 11/13/20 14:18 Dose: 0 mls/hr Documented by: Admin: 11/13/20 10:15 Dose: 25 mls/hr Documented by: Infusion: 11/13/20 05:46 Dose: 0 mls/hr Documented by: Admin: 11/13/20 02:16 Dose: 25 mls/hr Documented by: AUGUSTO Sodium Chloride (Normal Saline 0.9%) 1,000 mls @ 100 mls/hr IV CONT MARIE Last Infusion: 11/14/20 16:33 Dose: 0 mls/hr Documented by: Admin: 11/14/20 07:59 Dose: 100 mls/hr Documented by: NISHA Lisinopril (Lisinopril 20 Mg Tablet) 20 mg PO NOW ONE Stop: 11/13/20 20:25 Last Admin: 11/13/20 20:52 Dose: 20 mg Documented by: ERIKA Lisinopril (Lisinopril 20 Mg Tablet) 20 mg PO NOW ONE Stop: 11/14/20 06:24 Last Admin: 11/14/20 06:41 Dose: 20 mg Documented by: AUGUSTO Pantoprazole Sodium (Pantoprazole 40 Mg Vial) 40 mg IV NOW ONE Stop: 11/14/20 06:25 Last Admin: 11/14/20 06:31 Dose: 40 mg Documented by: AUGUSTO Vital Signs Vital signs: Vital Signs - 8 hr 11/14/20 10:00 11/14/20 10:01 11/14/20 10:30 Temperature Pulse Rate 55 L 58 L 46 L Respiratory Rate 7 L 10 L 15 Blood Pressure 170/81 H Pulse Oximetry 95 94 95 11/14/20 11:00 11/14/20 11:30 11/14/20 11:45 Temperature Pulse Rate 50 L 61 45 L Respiratory Rate 14 15 12 Blood Pressure Pulse Oximetry 95 96 97 11/14/20 12:00 11/14/20 12:15 11/14/20 12:30 Temperature Pulse Rate 61 42 L Respiratory Rate 12 18 Blood Pressure 180/82 H Pulse Oximetry 96 96 95 11/14/20 12:37 11/14/20 12:45 11/14/20 13:00 Temperature Pulse Rate 73 90 60 Respiratory Rate 21 7 L Blood Pressure 187/88 H Pulse Oximetry 96 96 97 11/14/20 13:15 11/14/20 13:30 11/14/20 13:45 Temperature Pulse Rate 66 59 L Respiratory Rate 4 L 16 Blood Pressure Pulse Oximetry 96 96 96 11/14/20 14:00 11/14/20 14:15 11/14/20 14:30 Temperature Pulse Rate 63 63 102 H Respiratory Rate 15 16 17 Blood Pressure 186/130 H Pulse Oximetry 96 95 97 11/14/20 14:45 11/14/20 15:00 11/14/20 15:15 Temperature Pulse Rate 62 56 L 58 L Respiratory Rate 17 11 L 15 Blood Pressure Pulse Oximetry 96 97 98 11/14/20 15:30 11/14/20 15:45 11/14/20 16:00 Temperature Pulse Rate 52 L 70 77 Respiratory Rate 9 L 20 23 Blood Pressure 199/92 H Pulse Oximetry 97 96 97 11/14/20 16:15 11/14/20 16:30 11/14/20 16:31 Temperature 98 F 97.5 F L Pulse Rate 63 54 L Respiratory Rate 17 14 Blood Pressure 200/76 H Pulse Oximetry 96 96 MDM - Fever <Lawrence Montejo, DO - Last Filed: 11/15/20 02:47> Lab Data Result diagrams: 11/14/20 05:15 11/14/20 05:15 Labs: Lab Results 11/12/20 11/12/20 11/12/20 Range/Units 16:36 16:36 16:36 WBC 4.1 L (4.5-11.0) X10^3/uL RBC 2.17 L (4.5-5.9) X10^6/uL Hgb 7.7 L (13.5-17.5) g/dL Hct 22.5 L (41-53) % MCV 103.8 H (80-100) fL MCH 35.4 H (26-34) PG MCHC 34.1 (30-36) % RDW 14.4 (11.6-14.8) % Plt Count 79 L (150-400) X10^3/uL Neut % (Auto) Not Reportable Lymph % (Auto) Not Reportable [place] % (Auto) Not Reportable Eos % (Auto) Not Reportable Baso % (Auto) Not Reportable Lymph # (Auto) Not Reportable [place] # (Auto) Not Reportable Baso # (Auto) Not Reportable Total Counted 100 Seg Neutrophils % 34.0 L (38-70) % Band Neutrophils % 13.0 H (3-7) % Lymphocytes % (Manual) 7.0 L (25-45) % Atypical Lymphs % ( - 0) % Monocytes % (Manual) 45.0 H (2-11) % Metamyelocytes % 1.0 H (-0) % Neutrophils # (Manual) 1927 L (5837-0612) /uL Platelet Estimate Decreased on smear Plt Morphology Comment Note RBC Morphology See below Polychromasia 1+ H Hypochromasia Anisocytosis Macrocytosis 1+ H D-Dimer (<230) ng/mL Sodium 139 (137-145) mmol/L Potassium 4.1 (3.4-5.1) mmol/L Chloride 109 H (98-107) mmol/L Carbon Dioxide 23 (22-32) mmol/L BUN 23 H (9-20) mg/dL Creatinine 1.21 (0.66-1.25) mg/dL Estimated GFR 57.7 L (>60) mL/min BUN/Creatinine Ratio 19.0 (6-22) Glucose 115 H (80-110) mg/dL Lactate 1.3 (0.7-2.1) mmol/L Calcium 8.1 L (8.4-10.2) mg/dL Total Bilirubin 0.8 (0.2-1.3) mg/dL AST 28 (17-59) IU/L ALT 30 (<50) IU/L Alkaline Phosphatase 143 H (38-126) U/L Total Creatine Kinase (55-170) U/L CK-MB (CK-2) CK-MB (CK-2) Rel Index Troponin I (0.01-0.034) ng/mL NT-Pro-B Natriuret Pep (<450) pg/mL Total Protein 6.7 (6.3-8.2) g/dL Albumin 3.3 L (3.5-5.0) g/dL Globulin 3.4 (1.7-4.1) g/dL Albumin/Globulin Ratio 1.0 (1.0-2.8) Lipase 94 (23-300) U/L Procalcitonin 0.73 H (<0.5) ng/mL Urine RBC (0-5/HPF) Urine WBC (0-5/HPF) Urine Bacteria (None) Urine Mucus (Negative) Ur Culture Indicated? SARS-CoV-2 (PCR) (Negative) 11/12/20 11/12/20 11/12/20 Range/Units 16:36 16:47 16:47 WBC (4.5-11.0) X10^3/uL RBC (4.5-5.9) X10^6/uL Hgb (13.5-17.5) g/dL Hct (41-53) % MCV (80-100) fL MCH (26-34) PG MCHC (30-36) % RDW (11.6-14.8) % Plt Count (150-400) X10^3/uL Neut % (Auto) Lymph % (Auto) [place] % (Auto) Eos % (Auto) Baso % (Auto) Lymph # (Auto) [place] # (Auto) Baso # (Auto) Total Counted Seg Neutrophils % (38-70) % Band Neutrophils % (3-7) % Lymphocytes % (Manual) (25-45) % Atypical Lymphs % ( - 0) % Monocytes % (Manual) (2-11) % Metamyelocytes % (-0) % Neutrophils # (Manual) (5298-1818) /uL Platelet Estimate Plt Morphology Comment RBC Morphology Polychromasia Hypochromasia Anisocytosis Macrocytosis D-Dimer (<230) ng/mL Sodium (137-145) mmol/L Potassium (3.4-5.1) mmol/L Chloride (98-107) mmol/L Carbon Dioxide (22-32) mmol/L BUN (9-20) mg/dL Creatinine (0.66-1.25) mg/dL Estimated GFR (>60) mL/min BUN/Creatinine Ratio (6-22) Glucose (80-110) mg/dL Lactate (0.7-2.1) mmol/L Calcium (8.4-10.2) mg/dL Total Bilirubin (0.2-1.3) mg/dL AST (17-59) IU/L ALT (<50) IU/L Alkaline Phosphatase (38-126) U/L Total Creatine Kinase 52 L (55-170) U/L CK-MB (CK-2) TNP CK-MB (CK-2) Rel Index TNP Troponin I 0.116 H (0.01-0.034) ng/mL NT-Pro-B Natriuret Pep 9530 H (<450) pg/mL Total Protein (6.3-8.2) g/dL Albumin (3.5-5.0) g/dL Globulin (1.7-4.1) g/dL Albumin/Globulin Ratio (1.0-2.8) Lipase (23-300) U/L Procalcitonin (<0.5) ng/mL Urine RBC (0-5/HPF) Urine WBC (0-5/HPF) Urine Bacteria (None) Urine Mucus (Negative) Ur Culture Indicated? SARS-CoV-2 (PCR) Negative Negative (Negative) 11/12/20 11/12/20 11/12/20 Range/Units 20:30 20:34 20:34 WBC (4.5-11.0) X10^3/uL RBC (4.5-5.9) X10^6/uL Hgb 7.9 L (13.5-17.5) g/dL Hct 23.4 L (41-53) % MCV (80-100) fL MCH (26-34) PG MCHC (30-36) % RDW (11.6-14.8) % Plt Count (150-400) X10^3/uL Neut % (Auto) Lymph % (Auto) [place] % (Auto) Eos % (Auto) Baso % (Auto) Lymph # (Auto) [place] # (Auto) Baso # (Auto) Total Counted Seg Neutrophils % (38-70) % Band Neutrophils % (3-7) % Lymphocytes % (Manual) (25-45) % Atypical Lymphs % ( - 0) % Monocytes % (Manual) (2-11) % Metamyelocytes % (-0) % Neutrophils # (Manual) (7817-0494) /uL Platelet Estimate Plt Morphology Comment RBC Morphology Polychromasia Hypochromasia Anisocytosis Macrocytosis D-Dimer (<230) ng/mL Sodium (137-145) mmol/L Potassium (3.4-5.1) mmol/L Chloride (98-107) mmol/L Carbon Dioxide (22-32) mmol/L BUN (9-20) mg/dL Creatinine (0.66-1.25) mg/dL Estimated GFR (>60) mL/min BUN/Creatinine Ratio (6-22) Glucose (80-110) mg/dL Lactate (0.7-2.1) mmol/L Calcium (8.4-10.2) mg/dL Total Bilirubin (0.2-1.3) mg/dL AST (17-59) IU/L ALT (<50) IU/L Alkaline Phosphatase (38-126) U/L Total Creatine Kinase (55-170) U/L CK-MB (CK-2) CK-MB (CK-2) Rel Index Troponin I (0.01-0.034) ng/mL NT-Pro-B Natriuret Pep (<450) pg/mL Total Protein (6.3-8.2) g/dL Albumin (3.5-5.0) g/dL Globulin (1.7-4.1) g/dL Albumin/Globulin Ratio (1.0-2.8) Lipase Cancelled (23-300) U/L Procalcitonin (<0.5) ng/mL Urine RBC None seen (0-5/HPF) Urine WBC None seen (0-5/HPF) Urine Bacteria None seen (None) Urine Mucus 1+ H (Negative) Ur Culture Indicated? Cult not indicated SARS-CoV-2 (PCR) (Negative) 11/12/20 11/12/20 11/12/20 Range/Units 20:34 20:34 20:34 WBC (4.5-11.0) X10^3/uL RBC (4.5-5.9) X10^6/uL Hgb (13.5-17.5) g/dL Hct (41-53) % MCV (80-100) fL MCH (26-34) PG MCHC (30-36) % RDW (11.6-14.8) % Plt Count (150-400) X10^3/uL Neut % (Auto) Lymph % (Auto) [place] % (Auto) Eos % (Auto) Baso % (Auto) Lymph # (Auto) [place] # (Auto) Baso # (Auto) Total Counted Seg Neutrophils % (38-70) % Band Neutrophils % (3-7) % Lymphocytes % (Manual) (25-45) % Atypical Lymphs % ( - 0) % Monocytes % (Manual) (2-11) % Metamyelocytes % (-0) % Neutrophils # (Manual) (5818-4111) /uL Platelet Estimate Plt Morphology Comment RBC Morphology Polychromasia Hypochromasia Anisocytosis Macrocytosis D-Dimer 702 H (<230) ng/mL Sodium 139 (137-145) mmol/L Potassium 4.0 (3.4-5.1) mmol/L Chloride 110 H (98-107) mmol/L Carbon Dioxide 24 (22-32) mmol/L BUN 23 H (9-20) mg/dL Creatinine 1.28 H (0.66-1.25) mg/dL Estimated GFR 54.1 L (>60) mL/min BUN/Creatinine Ratio 18.0 (6-22) Glucose 128 H (80-110) mg/dL Lactate (0.7-2.1) mmol/L Calcium 7.8 L (8.4-10.2) mg/dL Total Bilirubin 0.8 (0.2-1.3) mg/dL AST 27 (17-59) IU/L ALT 30 (<50) IU/L Alkaline Phosphatase 135 H (38-126) U/L Total Creatine Kinase (55-170) U/L CK-MB (CK-2) CK-MB (CK-2) Rel Index Troponin I 0.193 H* (0.01-0.034) ng/mL NT-Pro-B Natriuret Pep (<450) pg/mL Total Protein 6.6 (6.3-8.2) g/dL Albumin 3.3 L (3.5-5.0) g/dL Globulin 3.3 (1.7-4.1) g/dL Albumin/Globulin Ratio 1.0 (1.0-2.8) Lipase 102 (23-300) U/L Procalcitonin (<0.5) ng/mL Urine RBC (0-5/HPF) Urine WBC (0-5/HPF) Urine Bacteria (None) Urine Mucus (Negative) Ur Culture Indicated? SARS-CoV-2 (PCR) (Negative) 11/12/20 11/13/20 11/13/20 Range/Units 20:34 06:00 06:00 WBC 5.9 (4.5-11.0) X10^3/uL RBC 2.16 L (4.5-5.9) X10^6/uL Hgb 7.6 L (13.5-17.5) g/dL Hct 22.6 L (41-53) % MCV 104.5 H (80-100) fL MCH 35.1 H (26-34) PG MCHC 33.6 (30-36) % RDW 14.2 (11.6-14.8) % Plt Count 70 L (150-400) X10^3/uL Neut % (Auto) Not Reportable Lymph % (Auto) Not Reportable [place] % (Auto) Not Reportable Eos % (Auto) Not Reportable Baso % (Auto) Not Reportable Lymph # (Auto) Not Reportable [place] # (Auto) Not Reportable Baso # (Auto) Not Reportable Total Counted 100 Seg Neutrophils % 54.0 D (38-70) % Band Neutrophils % 4.0 (3-7) % Lymphocytes % (Manual) 19.0 L (25-45) % Atypical Lymphs % 2.0 H ( - 0) % Monocytes % (Manual) 20.0 H (2-11) % Metamyelocytes % 1.0 H (-0) % Neutrophils # (Manual) 3422 (4247-3072) /uL Platelet Estimate Plt Morphology Comment RBC Morphology See Polychromasia Hypochromasia 1+ H Anisocytosis 1+ H Macrocytosis 1+ H D-Dimer (<230) ng/mL Sodium 141 (137-145) mmol/L Potassium 4.1 (3.4-5.1) mmol/L Chloride 111 H (98-107) mmol/L Carbon Dioxide 26 (22-32) mmol/L BUN 26 H (9-20) mg/dL Creatinine 1.31 H (0.66-1.25) mg/dL Estimated GFR 52.6 L (>60) mL/min BUN/Creatinine Ratio 19.8 (6-22) Glucose 105 (80-110) mg/dL Lactate 0.8 (0.7-2.1) mmol/L Calcium 7.9 L (8.4-10.2) mg/dL Total Bilirubin 0.7 (0.2-1.3) mg/dL AST 24 (17-59) IU/L ALT 26 (<50) IU/L Alkaline Phosphatase 115 (38-126) U/L Total Creatine Kinase (55-170) U/L CK-MB (CK-2) CK-MB (CK-2) Rel Index Troponin I 0.093 H (0.01-0.034) ng/mL NT-Pro-B Natriuret Pep (<450) pg/mL Total Protein 6.2 L (6.3-8.2) g/dL Albumin 3.1 L (3.5-5.0) g/dL Globulin 3.1 (1.7-4.1) g/dL Albumin/Globulin Ratio 1.0 (1.0-2.8) Lipase (23-300) U/L Procalcitonin (<0.5) ng/mL Urine RBC (0-5/HPF) Urine WBC (0-5/HPF) Urine Bacteria (None) Urine Mucus (Negative) Ur Culture Indicated? SARS-CoV-2 (PCR) (Negative) 11/14/20 11/14/20 11/14/20 Range/Units 05:15 05:15 05:15 WBC 5.9 (4.5-11.0) X10^3/uL RBC 2.40 L (4.5-5.9) X10^6/uL Hgb 8.4 L (13.5-17.5) g/dL Hct 24.9 L (41-53) % MCV 104.0 H (80-100) fL MCH 34.9 H (26-34) PG MCHC 33.5 (30-36) % RDW 14.6 (11.6-14.8) % Plt Count 77 L (150-400) X10^3/uL Neut % (Auto) Not Reportable Lymph % (Auto) Not Reportable [place] % (Auto) Not Reportable Eos % (Auto) Not Reportable Baso % (Auto) Not Reportable Lymph # (Auto) Not Reportable [place] # (Auto) Not Reportable Baso # (Auto) Not Reportable Total Counted 100 Seg Neutrophils % 53.0 (38-70) % Band Neutrophils % 8.0 H (3-7) % Lymphocytes % (Manual) 8.0 L (25-45) % Atypical Lymphs % ( - 0) % Monocytes % (Manual) 30.0 H (2-11) % Metamyelocytes % 1.0 H (-0) % Neutrophils # (Manual) 3599 (6222-2885) /uL Platelet Estimate Decreased on smear Plt Morphology Comment . RBC Morphology See below Polychromasia 1+ H Hypochromasia Anisocytosis Macrocytosis 1+ H D-Dimer (<230) ng/mL Sodium 139 (137-145) mmol/L Potassium 3.7 (3.4-5.1) mmol/L Chloride 110 H (98-107) mmol/L Carbon Dioxide 23 (22-32) mmol/L BUN 25 H (9-20) mg/dL Creatinine 0.98 (0.66-1.25) mg/dL Estimated GFR > 60.0 (>60) mL/min BUN/Creatinine Ratio 25.5 H (6-22) Glucose 90 (80-110) mg/dL Lactate (0.7-2.1) mmol/L Calcium 8.5 (8.4-10.2) mg/dL Total Bilirubin 0.9 (0.2-1.3) mg/dL AST 22 (17-59) IU/L ALT 22 (<50) IU/L Alkaline Phosphatase 113 (38-126) U/L Total Creatine Kinase (55-170) U/L CK-MB (CK-2) CK-MB (CK-2) Rel Index Troponin I 0.068 H (0.01-0.034) ng/mL NT-Pro-B Natriuret Pep (<450) pg/mL Total Protein 6.5 (6.3-8.2) g/dL Albumin 3.2 L (3.5-5.0) g/dL Globulin 3.3 (1.7-4.1) g/dL Albumin/Globulin Ratio 1.0 (1.0-2.8) Lipase 66 (23-300) U/L Procalcitonin (<0.5) ng/mL Urine RBC (0-5/HPF) Urine WBC (0-5/HPF) Urine Bacteria (None) Urine Mucus (Negative) Ur Culture Indicated? SARS-CoV-2 (PCR) (Negative) Urine Dip Bedside Urine Glucose Negative Bedside Urine Bilirubin - Negative Bedside Urine Ketone - Negative Urine Specific [place] 1.015 Bedside Urine Occult Blood - Negative Bedside Urine pH 6.0 Bedside Urine Protein ++ 100 Bedside Urine Urobilinogen - Negative Bedside Urine Nitrite - Negative Bedside Urine Leukocytes - Negative Esterase Imaging Data CT scan - abdomen/pelvis: Radiologist's Impression: Jairo Ochoa??80??M??1940 ? Allergy/Adv: No Known Drug Allergies (More??) Close Abdomen/Pelvis CT (Addendum) Nahun Boucherderic - 11/12/20 Chest CTA (Signed) SanderDipesh - 11/12/20 Abdomen Ultrasound (Signed) Dipesh Boucher - 11/12/20 Chest X-Ray (Signed) Cornel Beltran - 11/12/20 Chest X-Ray (Signed) Madison Stephen - 11/11/20 Abdomen Ultrasound (Signed) Cornel Beltran - 11/04/20 Abdomen MRI (Signed) Sola Beltrane - 10/18/20 Telemetry Strips 10/18/20 Abdomen Ultrasound (Signed) Matty Beltransse - 10/17/20 Abdomen/Pelvis CT (Signed) Cornel Beltran - 10/17/20 Chest X-Ray (Signed) Nahun Boucherderic - 02/03/19 Thoracic Spine X-Ray (Signed) Sol Hernández - 11/20/[address] (Signed) Dipesh Boucher - 11/20/18 [place] [address] CT Scan Report Addendum Patient: Jairo Ochoa MR#: [id number] : 1940 Acct:[id number] Age/Sex: 80 / M Date of Service: 11/12/20 Loc: ED Accession Number: [id number] ?? Procedure: CT abdomen pelvis w con Ordering Provider: Lawrence Montejo D.O. ADDENDUMCORRECTION Corrected on: 11/12/2020; ? ? PROCEDURE:? CT ABDOMEN PELVIS W CON ? INDICATIONS:? abdomen? pain, known gall bladder disease, septic ? TECHNIQUE:? After the administration of intravenous contrast, axial sections acquired from the lung bases to the pubic symphysis.? Coronal and sagittal reformats were performed.? For radiation dose reduction, the following was used:? automated exposure control, adjustment of mA and/or kV according to patient size.? ? COMPARISON:? [facility], CT, CT ABDOMEN PELVIS W CON, 10/17/2020, 23:30. ? FINDINGS:? Image quality:? Excellent.? ? Lung bases:? Unremarkable. Heart:? No significant findings. ? ABDOMEN: Liver:? Air is present in left-sided intrahepatic ducts.? Improvement in ductal dilatation post placement of a silastic extrahepatic biliary stent.? Short interval development of a low-density lesion in the right lobe of the liver measuring approximately 1 cm on image 18/12.? Consider developing biloma or small liver abscess. Gallbladder:? Mostly collapsed.? Air is present related to the endo biliary stent.? There is a question of a exophytic gallbladder fundus mass. Biliary ducts:? Unremarkable.? ? Pancreas:? Unremarkable.? ? Spleen:? Unremarkable.? ? Adrenal Glands:? Unremarkable.? ? Kidneys and Ureters:? Again noted is an exophytic hyperdense mass off the anterior aspect of the middle pole of the left kidney, possibly the representing a small left renal cell carcinoma.? Multiple bilateral renal cysts are noted.? There also benign-appearing calcifications bilaterally. ? Stomach and Bowel:? No dilated bowel loops.? Mild diverticulosis. Peritoneum:? No abnormal intraperitoneal fluid.? No free air.? ? Ventral Wall: ? No hernias.? Abdominal Nodes:? No retroperitoneal or mesenteric adenopathy by size criteria.? Vessels:? Aorta and inferior vena cava are normal in size.? Extensive atherosclerotic calcification.? Severe or high-grade calcified stenosis of the left common femoral artery.? ? PELVIS: Pelvic Organs:? Enlarged prostate. Bladder:? Unremarkable.? ? Pelvic Nodes: No enlarged lymph nodes.? Miscellaneous: No hernias are seen. ? ? ? Bones:? Lumbar degenerative change.? No lytic or blastic bony lesions. ? ? IMPRESSION:? 1. Interval placement of a endo biliary silastic stent with decrease in biliary ductal dilatation. 2. Air is present in the gallbladder and in left-sided bile ducts secondary to the endoscopic stent. 3. Question small gallbladder fundus mass. 4. Question developing 1 cm liver abscess versus biloma. 5.? 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 6. Peripheral vascular disease.? 7. Enlarged prostate. ? ? Dictated by: Dipesh Boucher M.D. on 11/12/2020 at 21:34 ? ? Approved by: Dipesh Boucher M.D. on 11/12/2020 at 21:44 ? ?Dictated by: Dipesh Boucher M.D. on 11/12/2020 at 21:53 ? ? Approved by: Dipesh Boucher M.D. on 11/12/2020 at 21:53 ? Addendum Dictated By: Dipesh Boucher MD Addendum Signed By: Addendum Cosigned By: DD/ /03/2150 TD/TT: 11/12/2004/03/2150 PROCEDURE:? CT ABDOMEN PELVIS W CON ? INDICATIONS:? abdomen? pain, known gall bladder disease, septic ? TECHNIQUE:? After the administration of intravenous contrast, axial sections acquired from the lung bases to the pubic symphysis.? Coronal and sagittal reformats were performed.? For radiation dose reduction, the following was used:? automated exposure control, adjustment of mA and/or kV according to patient size.? ? COMPARISON:? [facility], CT, CT ABDOMEN PELVIS W CON, 10/17/2020, 23:30. ? FINDINGS:? Image quality:? Excellent.? ? Lung bases:? Unremarkable. Heart:? No significant findings. ? ABDOMEN: Liver:? Air is present in left-sided intrahepatic ducts.? Improvement in ductal dilatation post placement of a silastic extrahepatic biliary stent.? Short interval development of a low-density lesion in the right lobe of the liver measuring approximately 1 cm on image 18/12.? Consider developing biloma or small liver abscess. Gallbladder:? Mostly collapsed.? Air is present related to the endo biliary stent.? There is a question of a exophytic gallbladder fundus mass. Biliary ducts:? Unremarkable.? ? Pancreas:? Unremarkable.? ? Spleen:? Unremarkable.? ? Adrenal Glands:? Unremarkable.? ? Kidneys and Ureters:? Again noted is an exophytic hyperdense mass off the anterior aspect of the middle pole of the left kidney, possibly the representing a small left renal cell carcinoma.? Multiple bilateral renal cysts are noted.? There also benign-appearing calcifications bilaterally. ? Stomach and Bowel:? No dilated bowel loops.? Mild diverticulosis. Peritoneum:? No abnormal intraperitoneal fluid.? No free air.? ? Ventral Wall: ? No hernias.? Abdominal Nodes:? No retroperitoneal or mesenteric adenopathy by size criteria.? Vessels:? Aorta and inferior vena cava are normal in size.? Extensive atherosclerotic calcification.? Severe or high-grade calcified stenosis of the left common femoral artery.? ? PELVIS: Pelvic Organs:? Enlarged prostate. Bladder:? Unremarkable.? ? Pelvic Nodes: No enlarged lymph nodes.? Miscellaneous: No hernias are seen. ? ? ? Bones:? Lumbar degenerative change.? No lytic or blastic bony lesions. ? ? IMPRESSION:? 1. Interval placement of a endo biliary silastic stent with decrease in biliary ductal dilatation. 2. Air is present in the gallbladder and in left-sided bile ducts secondary to the endoscopic stent. 3. Question small gallbladder fundus mass. 4. 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 5. Peripheral vascular disease.? 6. Enlarged prostate. ? ? Dictated by: Dipesh Boucher M.D. on 11/12/2020 at 21:34 ? ? Approved by: Dipesh Boucher M.D. on 11/12/2020 at 21:44 ? CT scan - chest: Radiologist's Impression: [place] [address] CT Scan Report Signed Patient: Jairo Ochoa MR#: [id number] : 1940 Acct:[id number] Age/Sex: 80 / M Date of Service: 11/12/20 Loc: ED Accession Number: [id number] ?? Procedure: CT angio chest PE protocol Ordering Provider: Lawrence Montejo D.O. PROCEDURE:? CT ANGIO CHEST PE PROTOCOL ? INDICATIONS:? septic, hypoxic, critical DDimer, troponin/BNP release ? TECHNIQUE:? After the administration of intravenous contrast, 2 mm thick sections acquired from the pulmonary apices to the posterior costophrenic angles.? 3-dimensional maximum intensity projection (MIP) coronal and sagittal reformats were then acquired through the thorax.? For radiation dose reduction, the following was used:? automated exposure control, adjustment of mA and/or kV according to patient size.? ? COMPARISON:? [facility], CT, CT ABDOMEN PELVIS W CON, 10/17/2020, 23:30.? [facility], CT, CT ABDOMEN PELVIS W CON, 11/12/2020, 21:13. ? FINDINGS:? Image quality:? Excellent.? ? Pulmonary arteries:? Pulmonary arteries are normal in size, and demonstrate no intraluminal filling defects to suggest central pulmonary embolism.? ? Lungs and pleura:? Lungs are clear.? No pleural effusions or pneumothorax.? Central and peripheral airways are patent.? ? Mediastinum:? Heart size is top normal, with small pericardial effusion.? At least moderate coronary artery calcifications.? Shotty mediastinal and bilateral hilar lymph nodes.? No abnormal individually size lymph nodes are noted.? There are more lymph nodes that are typically seen.? This is of uncertain significance, possibly reactive.? Thoracic aorta is normal in caliber and enhancement.? Esophagus is normal in caliber, without hiatal hernia.? ? Bones and chest wall:? No suspicious bony lesions.? Ribs and thoracic spine appear intact throughout.? Thyroid gland is unremarkable as visualized..? No axillary or supraclavicular adenopathy.? ? Abdomen:? Interval placement of an and a bit leery stent.? Bile ducts are less dilated than previously.? There is air present in the biliary tree.? Better seen on the CT abdomen and pelvis is a new 1 cm low-density right lobe liver lesion, which may potentially represent a small biloma or small abscess.? A 2 cm exophytic possible left renal cell carcinoma is again noted. ? IMPRESSION:? ? 1. No evidence acute pulmonary emboli. ? 2. Shotty mediastinal and hilar adenopathy, of uncertain etiology. ? 3. No evidence of acute pulmonary process. ? 4. Coronary artery disease. ? 5. Interval placement of a biliary stent with significant improvement in biliary ductal dilatation.? There is air of lucy. ? 6. Question developing small liver abscess versus biloma, better seen on the CT abdomen. ? 7. 2 cm exophytic left renal mass, possibly representing a small renal cell carcinoma.? ? Dictated by: Dipesh Boucher M.D. on 11/12/2020 at 21:54 ? ? Approved by: Dipesh Boucher M.D. on 11/12/2020 at 21:59 ? MDM Narrative Medical decision making narrative: Multiple diagnoses considered including GB complications, stent problem, IN, PE among others. Ultimately patient has evidence of choleycystitis without stent complication. No EKG changes and bump in troponin. No evidence of PE on imaging. Patient stabilized and doing well, but requires transfer. <Duke Huff MD - Last Filed: 11/13/20 17:18> Lab Data Labs: Lab Results 11/12/20 11/12/20 11/12/20 Range/Units 16:36 16:36 16:36 WBC 4.1 L (4.5-11.0) X10^3/uL RBC 2.17 L (4.5-5.9) X10^6/uL Hgb 7.7 L (13.5-17.5) g/dL Hct 22.5 L (41-53) % MCV 103.8 H (80-100) fL MCH 35.4 H (26-34) PG MCHC 34.1 (30-36) % RDW 14.4 (11.6-14.8) % Plt Count 79 L (150-400) X10^3/uL Neut % (Auto) Not Reportable Lymph % (Auto) Not Reportable [place] % (Auto) Not Reportable Eos % (Auto) Not Reportable Baso % (Auto) Not Reportable Lymph # (Auto) Not Reportable [place] # (Auto) Not Reportable Baso # (Auto) Not Reportable Total Counted 100 Seg Neutrophils % 34.0 L (38-70) % Band Neutrophils % 13.0 H (3-7) % Lymphocytes % (Manual) 7.0 L (25-45) % Atypical Lymphs % ( - 0) % Monocytes % (Manual) 45.0 H (2-11) % Metamyelocytes % 1.0 H (-0) % Neutrophils # (Manual) 1927 L (9602-0236) /uL Platelet Estimate Decreased on smear Plt Morphology Comment Note RBC Morphology See below Polychromasia 1+ H Hypochromasia Anisocytosis Macrocytosis 1+ H D-Dimer (<230) ng/mL Sodium 139 (137-145) mmol/L Potassium 4.1 (3.4-5.1) mmol/L Chloride 109 H (98-107) mmol/L Carbon Dioxide 23 (22-32) mmol/L BUN 23 H (9-20) mg/dL Creatinine 1.21 (0.66-1.25) mg/dL Estimated GFR 57.7 L (>60) mL/min BUN/Creatinine Ratio 19.0 (6-22) Glucose 115 H (80-110) mg/dL Lactate 1.3 (0.7-2.1) mmol/L Calcium 8.1 L (8.4-10.2) mg/dL Total Bilirubin 0.8 (0.2-1.3) mg/dL AST 28 (17-59) IU/L ALT 30 (<50) IU/L Alkaline Phosphatase 143 H (38-126) U/L Total Creatine Kinase (55-170) U/L CK-MB (CK-2) CK-MB (CK-2) Rel Index Troponin I (0.01-0.034) ng/mL NT-Pro-B Natriuret Pep (<450) pg/mL Total Protein 6.7 (6.3-8.2) g/dL Albumin 3.3 L (3.5-5.0) g/dL Globulin 3.4 (1.7-4.1) g/dL Albumin/Globulin Ratio 1.0 (1.0-2.8) Lipase 94 (23-300) U/L Procalcitonin 0.73 H (<0.5) ng/mL Urine RBC (0-5/HPF) Urine WBC (0-5/HPF) Urine Bacteria (None) Urine Mucus (Negative) Ur Culture Indicated? SARS-CoV-2 (PCR) (Negative) 11/12/20 11/12/20 11/12/20 Range/Units 16:36 16:47 16:47 WBC (4.5-11.0) X10^3/uL RBC (4.5-5.9) X10^6/uL Hgb (13.5-17.5) g/dL Hct (41-53) % MCV (80-100) fL MCH (26-34) PG MCHC (30-36) % RDW (11.6-14.8) % Plt Count (150-400) X10^3/uL Neut % (Auto) Lymph % (Auto) [place] % (Auto) Eos % (Auto) Baso % (Auto) Lymph # (Auto) [place] # (Auto) Baso # (Auto) Total Counted Seg Neutrophils % (38-70) % Band Neutrophils % (3-7) % Lymphocytes % (Manual) (25-45) % Atypical Lymphs % ( - 0) % Monocytes % (Manual) (2-11) % Metamyelocytes % (-0) % Neutrophils # (Manual) (9324-9486) /uL Platelet Estimate Plt Morphology Comment RBC Morphology Polychromasia Hypochromasia Anisocytosis Macrocytosis D-Dimer (<230) ng/mL Sodium (137-145) mmol/L Potassium (3.4-5.1) mmol/L Chloride (98-107) mmol/L Carbon Dioxide (22-32) mmol/L BUN (9-20) mg/dL Creatinine (0.66-1.25) mg/dL Estimated GFR (>60) mL/min BUN/Creatinine Ratio (6-22) Glucose (80-110) mg/dL Lactate (0.7-2.1) mmol/L Calcium (8.4-10.2) mg/dL Total Bilirubin (0.2-1.3) mg/dL AST (17-59) IU/L ALT (<50) IU/L Alkaline Phosphatase (38-126) U/L Total Creatine Kinase 52 L (55-170) U/L CK-MB (CK-2) TNP CK-MB (CK-2) Rel Index TNP Troponin I 0.116 H (0.01-0.034) ng/mL NT-Pro-B Natriuret Pep 9530 H (<450) pg/mL Total Protein (6.3-8.2) g/dL Albumin (3.5-5.0) g/dL Globulin (1.7-4.1) g/dL Albumin/Globulin Ratio (1.0-2.8) Lipase (23-300) U/L Procalcitonin (<0.5) ng/mL Urine RBC (0-5/HPF) Urine WBC (0-5/HPF) Urine Bacteria (None) Urine Mucus (Negative) Ur Culture Indicated? SARS-CoV-2 (PCR) Negative Negative (Negative) 11/12/20 11/12/20 11/12/20 Range/Units 20:30 20:34 20:34 WBC (4.5-11.0) X10^3/uL RBC (4.5-5.9) X10^6/uL Hgb 7.9 L (13.5-17.5) g/dL Hct 23.4 L (41-53) % MCV (80-100) fL MCH (26-34) PG MCHC (30-36) % RDW (11.6-14.8) % Plt Count (150-400) X10^3/uL Neut % (Auto) Lymph % (Auto) [place] % (Auto) Eos % (Auto) Baso % (Auto) Lymph # (Auto) [place] # (Auto) Baso # (Auto) Total Counted Seg Neutrophils % (38-70) % Band Neutrophils % (3-7) % Lymphocytes % (Manual) (25-45) % Atypical Lymphs % ( - 0) % Monocytes % (Manual) (2-11) % Metamyelocytes % (-0) % Neutrophils # (Manual) (4760-7994) /uL Platelet Estimate Plt Morphology Comment RBC Morphology Polychromasia Hypochromasia Anisocytosis Macrocytosis D-Dimer (<230) ng/mL Sodium (137-145) mmol/L Potassium (3.4-5.1) mmol/L Chloride (98-107) mmol/L Carbon Dioxide (22-32) mmol/L BUN (9-20) mg/dL Creatinine (0.66-1.25) mg/dL Estimated GFR (>60) mL/min BUN/Creatinine Ratio (6-22) Glucose (80-110) mg/dL Lactate (0.7-2.1) mmol/L Calcium (8.4-10.2) mg/dL Total Bilirubin (0.2-1.3) mg/dL AST (17-59) IU/L ALT (<50) IU/L Alkaline Phosphatase (38-126) U/L Total Creatine Kinase (55-170) U/L CK-MB (CK-2) CK-MB (CK-2) Rel Index Troponin I (0.01-0.034) ng/mL NT-Pro-B Natriuret Pep (<450) pg/mL Total Protein (6.3-8.2) g/dL Albumin (3.5-5.0) g/dL Globulin (1.7-4.1) g/dL Albumin/Globulin Ratio (1.0-2.8) Lipase Cancelled (23-300) U/L Procalcitonin (<0.5) ng/mL Urine RBC None seen (0-5/HPF) Urine WBC None seen (0-5/HPF) Urine Bacteria None seen (None) Urine Mucus 1+ H (Negative) Ur Culture Indicated? Cult not indicated SARS-CoV-2 (PCR) (Negative) 11/12/20 11/12/20 11/12/20 Range/Units 20:34 20:34 20:34 WBC (4.5-11.0) X10^3/uL RBC (4.5-5.9) X10^6/uL Hgb (13.5-17.5) g/dL Hct (41-53) % MCV (80-100) fL MCH (26-34) PG MCHC (30-36) % RDW (11.6-14.8) % Plt Count (150-400) X10^3/uL Neut % (Auto) Lymph % (Auto) [place] % (Auto) Eos % (Auto) Baso % (Auto) Lymph # (Auto) [place] # (Auto) Baso # (Auto) Total Counted Seg Neutrophils % (38-70) % Band Neutrophils % (3-7) % Lymphocytes % (Manual) (25-45) % Atypical Lymphs % ( - 0) % Monocytes % (Manual) (2-11) % Metamyelocytes % (-0) % Neutrophils # (Manual) (3978-2302) /uL Platelet Estimate Plt Morphology Comment RBC Morphology Polychromasia Hypochromasia Anisocytosis Macrocytosis D-Dimer 702 H (<230) ng/mL Sodium 139 (137-145) mmol/L Potassium 4.0 (3.4-5.1) mmol/L Chloride 110 H (98-107) mmol/L Carbon Dioxide 24 (22-32) mmol/L BUN 23 H (9-20) mg/dL Creatinine 1.28 H (0.66-1.25) mg/dL Estimated GFR 54.1 L (>60) mL/min BUN/Creatinine Ratio 18.0 (6-22) Glucose 128 H (80-110) mg/dL Lactate (0.7-2.1) mmol/L Calcium 7.8 L (8.4-10.2) mg/dL Total Bilirubin 0.8 (0.2-1.3) mg/dL AST 27 (17-59) IU/L ALT 30 (<50) IU/L Alkaline Phosphatase 135 H (38-126) U/L Total Creatine Kinase (55-170) U/L CK-MB (CK-2) CK-MB (CK-2) Rel Index Troponin I 0.193 H* (0.01-0.034) ng/mL NT-Pro-B Natriuret Pep (<450) pg/mL Total Protein 6.6 (6.3-8.2) g/dL Albumin 3.3 L (3.5-5.0) g/dL Globulin 3.3 (1.7-4.1) g/dL Albumin/Globulin Ratio 1.0 (1.0-2.8) Lipase 102 (23-300) U/L Procalcitonin (<0.5) ng/mL Urine RBC (0-5/HPF) Urine WBC (0-5/HPF) Urine Bacteria (None) Urine Mucus (Negative) Ur Culture Indicated? SARS-CoV-2 (PCR) (Negative) 11/12/20 11/13/20 11/13/20 Range/Units 20:34 06:00 06:00 WBC 5.9 (4.5-11.0) X10^3/uL RBC 2.16 L (4.5-5.9) X10^6/uL Hgb 7.6 L (13.5-17.5) g/dL Hct 22.6 L (41-53) % MCV 104.5 H (80-100) fL MCH 35.1 H (26-34) PG MCHC 33.6 (30-36) % RDW 14.2 (11.6-14.8) % Plt Count 70 L (150-400) X10^3/uL Neut % (Auto) Not Reportable Lymph % (Auto) Not Reportable [place] % (Auto) Not Reportable Eos % (Auto) Not Reportable Baso % (Auto) Not Reportable Lymph # (Auto) Not Reportable [place] # (Auto) Not Reportable Baso # (Auto) Not Reportable Total Counted 100 Seg Neutrophils % 54.0 D (38-70) % Band Neutrophils % 4.0 (3-7) % Lymphocytes % (Manual) 19.0 L (25-45) % Atypical Lymphs % 2.0 H ( - 0) % Monocytes % (Manual) 20.0 H (2-11) % Metamyelocytes % 1.0 H (-0) % Neutrophils # (Manual) 3422 (4237-6751) /uL Platelet Estimate Plt Morphology Comment RBC Morphology See Polychromasia Hypochromasia 1+ H Anisocytosis 1+ H Macrocytosis 1+ H D-Dimer (<230) ng/mL Sodium 141 (137-145) mmol/L Potassium 4.1 (3.4-5.1) mmol/L Chloride 111 H (98-107) mmol/L Carbon Dioxide 26 (22-32) mmol/L BUN 26 H (9-20) mg/dL Creatinine 1.31 H (0.66-1.25) mg/dL Estimated GFR 52.6 L (>60) mL/min BUN/Creatinine Ratio 19.8 (6-22) Glucose 105 (80-110) mg/dL Lactate 0.8 (0.7-2.1) mmol/L Calcium 7.9 L (8.4-10.2) mg/dL Total Bilirubin 0.7 (0.2-1.3) mg/dL AST 24 (17-59) IU/L ALT 26 (<50) IU/L Alkaline Phosphatase 115 (38-126) U/L Total Creatine Kinase (55-170) U/L CK-MB (CK-2) CK-MB (CK-2) Rel Index Troponin I 0.093 H (0.01-0.034) ng/mL NT-Pro-B Natriuret Pep (<450) pg/mL Total Protein 6.2 L (6.3-8.2) g/dL Albumin 3.1 L (3.5-5.0) g/dL Globulin 3.1 (1.7-4.1) g/dL Albumin/Globulin Ratio 1.0 (1.0-2.8) Lipase (23-300) U/L Procalcitonin (<0.5) ng/mL Urine RBC (0-5/HPF) Urine WBC (0-5/HPF) Urine Bacteria (None) Urine Mucus (Negative) Ur Culture Indicated? SARS-CoV-2 (PCR) (Negative) 11/14/20 11/14/20 11/14/20 Range/Units 05:15 05:15 05:15 WBC 5.9 (4.5-11.0) X10^3/uL RBC 2.40 L (4.5-5.9) X10^6/uL Hgb 8.4 L (13.5-17.5) g/dL Hct 24.9 L (41-53) % MCV 104.0 H (80-100) fL MCH 34.9 H (26-34) PG MCHC 33.5 (30-36) % RDW 14.6 (11.6-14.8) % Plt Count 77 L (150-400) X10^3/uL Neut % (Auto) Not Reportable Lymph % (Auto) Not Reportable [place] % (Auto) Not Reportable Eos % (Auto) Not Reportable Baso % (Auto) Not Reportable Lymph # (Auto) Not Reportable [place] # (Auto) Not Reportable Baso # (Auto) Not Reportable Total Counted 100 Seg Neutrophils % 53.0 (38-70) % Band Neutrophils % 8.0 H (3-7) % Lymphocytes % (Manual) 8.0 L (25-45) % Atypical Lymphs % ( - 0) % Monocytes % (Manual) 30.0 H (2-11) % Metamyelocytes % 1.0 H (-0) % Neutrophils # (Manual) 3599 (4917-3855) /uL Platelet Estimate Decreased on smear Plt Morphology Comment . RBC Morphology See below Polychromasia 1+ H Hypochromasia Anisocytosis Macrocytosis 1+ H D-Dimer (<230) ng/mL Sodium 139 (137-145) mmol/L Potassium 3.7 (3.4-5.1) mmol/L Chloride 110 H (98-107) mmol/L Carbon Dioxide 23 (22-32) mmol/L BUN 25 H (9-20) mg/dL Creatinine 0.98 (0.66-1.25) mg/dL Estimated GFR > 60.0 (>60) mL/min BUN/Creatinine Ratio 25.5 H (6-22) Glucose 90 (80-110) mg/dL Lactate (0.7-2.1) mmol/L Calcium 8.5 (8.4-10.2) mg/dL Total Bilirubin 0.9 (0.2-1.3) mg/dL AST 22 (17-59) IU/L ALT 22 (<50) IU/L Alkaline Phosphatase 113 (38-126) U/L Total Creatine Kinase (55-170) U/L CK-MB (CK-2) CK-MB (CK-2) Rel Index Troponin I 0.068 H (0.01-0.034) ng/mL NT-Pro-B Natriuret Pep (<450) pg/mL Total Protein 6.5 (6.3-8.2) g/dL Albumin 3.2 L (3.5-5.0) g/dL Globulin 3.3 (1.7-4.1) g/dL Albumin/Globulin Ratio 1.0 (1.0-2.8) Lipase 66 (23-300) U/L Procalcitonin (<0.5) ng/mL Urine RBC (0-5/HPF) Urine WBC (0-5/HPF) Urine Bacteria (None) Urine Mucus (Negative) Ur Culture Indicated? SARS-CoV-2 (PCR) (Negative) Urine Dip Bedside Urine Glucose Negative Bedside Urine Bilirubin - Negative Bedside Urine Ketone - Negative Urine Specific [place] 1.015 Bedside Urine Occult Blood - Negative Bedside Urine pH 6.0 Bedside Urine Protein ++ 100 Bedside Urine Urobilinogen - Negative Bedside Urine Nitrite - Negative Bedside Urine Leukocytes - Negative Esterase <Rosita Butler, DO - Last Filed: 11/14/20 17:53> Lab Data Labs: Lab Results 11/12/20 11/12/20 11/12/20 Range/Units 16:36 16:36 16:36 WBC 4.1 L (4.5-11.0) X10^3/uL RBC 2.17 L (4.5-5.9) X10^6/uL Hgb 7.7 L (13.5-17.5) g/dL Hct 22.5 L (41-53) % MCV 103.8 H (80-100) fL MCH 35.4 H (26-34) PG MCHC 34.1 (30-36) % RDW 14.4 (11.6-14.8) % Plt Count 79 L (150-400) X10^3/uL Neut % (Auto) Not Reportable Lymph % (Auto) Not Reportable [place] % (Auto) Not Reportable Eos % (Auto) Not Reportable Baso % (Auto) Not Reportable Lymph # (Auto) Not Reportable [place] # (Auto) Not Reportable Baso # (Auto) Not Reportable Total Counted 100 Seg Neutrophils % 34.0 L (38-70) % Band Neutrophils % 13.0 H (3-7) % Lymphocytes % (Manual) 7.0 L (25-45) % Atypical Lymphs % ( - 0) % Monocytes % (Manual) 45.0 H (2-11) % Metamyelocytes % 1.0 H (-0) % Neutrophils # (Manual) 1927 L (6327-6491) /uL Platelet Estimate Decreased on smear Plt Morphology Comment Note RBC Morphology See below Polychromasia 1+ H Hypochromasia Anisocytosis Macrocytosis 1+ H D-Dimer (<230) ng/mL Sodium 139 (137-145) mmol/L Potassium 4.1 (3.4-5.1) mmol/L Chloride 109 H (98-107) mmol/L Carbon Dioxide 23 (22-32) mmol/L BUN 23 H (9-20) mg/dL Creatinine 1.21 (0.66-1.25) mg/dL Estimated GFR 57.7 L (>60) mL/min BUN/Creatinine Ratio 19.0 (6-22) Glucose 115 H (80-110) mg/dL Lactate 1.3 (0.7-2.1) mmol/L Calcium 8.1 L (8.4-10.2) mg/dL Total Bilirubin 0.8 (0.2-1.3) mg/dL AST 28 (17-59) IU/L ALT 30 (<50) IU/L Alkaline Phosphatase 143 H (38-126) U/L Total Creatine Kinase (55-170) U/L CK-MB (CK-2) CK-MB (CK-2) Rel Index Troponin I (0.01-0.034) ng/mL NT-Pro-B Natriuret Pep (<450) pg/mL Total Protein 6.7 (6.3-8.2) g/dL Albumin 3.3 L (3.5-5.0) g/dL Globulin 3.4 (1.7-4.1) g/dL Albumin/Globulin Ratio 1.0 (1.0-2.8) Lipase 94 (23-300) U/L Procalcitonin 0.73 H (<0.5) ng/mL Urine RBC (0-5/HPF) Urine WBC (0-5/HPF) Urine Bacteria (None) Urine Mucus (Negative) Ur Culture Indicated? SARS-CoV-2 (PCR) (Negative) 11/12/20 11/12/20 11/12/20 Range/Units 16:36 16:47 16:47 WBC (4.5-11.0) X10^3/uL RBC (4.5-5.9) X10^6/uL Hgb (13.5-17.5) g/dL Hct (41-53) % MCV (80-100) fL MCH (26-34) PG MCHC (30-36) % RDW (11.6-14.8) % Plt Count (150-400) X10^3/uL Neut % (Auto) Lymph % (Auto) [place] % (Auto) Eos % (Auto) Baso % (Auto) Lymph # (Auto) [place] # (Auto) Baso # (Auto) Total Counted Seg Neutrophils % (38-70) % Band Neutrophils % (3-7) % Lymphocytes % (Manual) (25-45) % Atypical Lymphs % ( - 0) % Monocytes % (Manual) (2-11) % Metamyelocytes % (-0) % Neutrophils # (Manual) (4982-1104) /uL Platelet Estimate Plt Morphology Comment RBC Morphology Polychromasia Hypochromasia Anisocytosis Macrocytosis D-Dimer (<230) ng/mL Sodium (137-145) mmol/L Potassium (3.4-5.1) mmol/L Chloride (98-107) mmol/L Carbon Dioxide (22-32) mmol/L BUN (9-20) mg/dL Creatinine (0.66-1.25) mg/dL Estimated GFR (>60) mL/min BUN/Creatinine Ratio (6-22) Glucose (80-110) mg/dL Lactate (0.7-2.1) mmol/L Calcium (8.4-10.2) mg/dL Total Bilirubin (0.2-1.3) mg/dL AST (17-59) IU/L ALT (<50) IU/L Alkaline Phosphatase (38-126) U/L Total Creatine Kinase 52 L (55-170) U/L CK-MB (CK-2) TNP CK-MB (CK-2) Rel Index TNP Troponin I 0.116 H (0.01-0.034) ng/mL NT-Pro-B Natriuret Pep 9530 H (<450) pg/mL Total Protein (6.3-8.2) g/dL Albumin (3.5-5.0) g/dL Globulin (1.7-4.1) g/dL Albumin/Globulin Ratio (1.0-2.8) Lipase (23-300) U/L Procalcitonin (<0.5) ng/mL Urine RBC (0-5/HPF) Urine WBC (0-5/HPF) Urine Bacteria (None) Urine Mucus (Negative) Ur Culture Indicated? SARS-CoV-2 (PCR) Negative Negative (Negative) 11/12/20 11/12/20 11/12/20 Range/Units 20:30 20:34 20:34 WBC (4.5-11.0) X10^3/uL RBC (4.5-5.9) X10^6/uL Hgb 7.9 L (13.5-17.5) g/dL Hct 23.4 L (41-53) % MCV (80-100) fL MCH (26-34) PG MCHC (30-36) % RDW (11.6-14.8) % Plt Count (150-400) X10^3/uL Neut % (Auto) Lymph % (Auto) [place] % (Auto) Eos % (Auto) Baso % (Auto) Lymph # (Auto) [place] # (Auto) Baso # (Auto) Total Counted Seg Neutrophils % (38-70) % Band Neutrophils % (3-7) % Lymphocytes % (Manual) (25-45) % Atypical Lymphs % ( - 0) % Monocytes % (Manual) (2-11) % Metamyelocytes % (-0) % Neutrophils # (Manual) (2385-4884) /uL Platelet Estimate Plt Morphology Comment RBC Morphology Polychromasia Hypochromasia Anisocytosis Macrocytosis D-Dimer (<230) ng/mL Sodium (137-145) mmol/L Potassium (3.4-5.1) mmol/L Chloride (98-107) mmol/L Carbon Dioxide (22-32) mmol/L BUN (9-20) mg/dL Creatinine (0.66-1.25) mg/dL Estimated GFR (>60) mL/min BUN/Creatinine Ratio (6-22) Glucose (80-110) mg/dL Lactate (0.7-2.1) mmol/L Calcium (8.4-10.2) mg/dL Total Bilirubin (0.2-1.3) mg/dL AST (17-59) IU/L ALT (<50) IU/L Alkaline Phosphatase (38-126) U/L Total Creatine Kinase (55-170) U/L CK-MB (CK-2) CK-MB (CK-2) Rel Index Troponin I (0.01-0.034) ng/mL NT-Pro-B Natriuret Pep (<450) pg/mL Total Protein (6.3-8.2) g/dL Albumin (3.5-5.0) g/dL Globulin (1.7-4.1) g/dL Albumin/Globulin Ratio (1.0-2.8) Lipase Cancelled (23-300) U/L Procalcitonin (<0.5) ng/mL Urine RBC None seen (0-5/HPF) Urine WBC None seen (0-5/HPF) Urine Bacteria None seen (None) Urine Mucus 1+ H (Negative) Ur Culture Indicated? Cult not indicated SARS-CoV-2 (PCR) (Negative) 11/12/20 11/12/20 11/12/20 Range/Units 20:34 20:34 20:34 WBC (4.5-11.0) X10^3/uL RBC (4.5-5.9) X10^6/uL Hgb (13.5-17.5) g/dL Hct (41-53) % MCV (80-100) fL MCH (26-34) PG MCHC (30-36) % RDW (11.6-14.8) % Plt Count (150-400) X10^3/uL Neut % (Auto) Lymph % (Auto) [place] % (Auto) Eos % (Auto) Baso % (Auto) Lymph # (Auto) [place] # (Auto) Baso # (Auto) Total Counted Seg Neutrophils % (38-70) % Band Neutrophils % (3-7) % Lymphocytes % (Manual) (25-45) % Atypical Lymphs % ( - 0) % Monocytes % (Manual) (2-11) % Metamyelocytes % (-0) % Neutrophils # (Manual) (4561-4526) /uL Platelet Estimate Plt Morphology Comment RBC Morphology Polychromasia Hypochromasia Anisocytosis Macrocytosis D-Dimer 702 H (<230) ng/mL Sodium 139 (137-145) mmol/L Potassium 4.0 (3.4-5.1) mmol/L Chloride 110 H (98-107) mmol/L Carbon Dioxide 24 (22-32) mmol/L BUN 23 H (9-20) mg/dL Creatinine 1.28 H (0.66-1.25) mg/dL Estimated GFR 54.1 L (>60) mL/min BUN/Creatinine Ratio 18.0 (6-22) Glucose 128 H (80-110) mg/dL Lactate (0.7-2.1) mmol/L Calcium 7.8 L (8.4-10.2) mg/dL Total Bilirubin 0.8 (0.2-1.3) mg/dL AST 27 (17-59) IU/L ALT 30 (<50) IU/L Alkaline Phosphatase 135 H (38-126) U/L Total Creatine Kinase (55-170) U/L CK-MB (CK-2) CK-MB (CK-2) Rel Index Troponin I 0.193 H* (0.01-0.034) ng/mL NT-Pro-B Natriuret Pep (<450) pg/mL Total Protein 6.6 (6.3-8.2) g/dL Albumin 3.3 L (3.5-5.0) g/dL Globulin 3.3 (1.7-4.1) g/dL Albumin/Globulin Ratio 1.0 (1.0-2.8) Lipase 102 (23-300) U/L Procalcitonin (<0.5) ng/mL Urine RBC (0-5/HPF) Urine WBC (0-5/HPF) Urine Bacteria (None) Urine Mucus (Negative) Ur Culture Indicated? SARS-CoV-2 (PCR) (Negative) 11/12/20 11/13/2011/13/21 Range/Units 20:34 06:00 06:00 WBC 5.9 (4.5-11.0) X10^3/uL RBC 2.16 L (4.5-5.9) X10^6/uL Hgb 7.6 L (13.5-17.5) g/dL Hct 22.6 L (41-53) % MCV 104.5 H (80-100) fL MCH 35.1 H (26-34) PG MCHC 33.6 (30-36) % RDW 14.2 (11.6-14.8) % Plt Count 70 L (150-400) X10^3/uL Neut % (Auto) Not Reportable Lymph % (Auto) Not Reportable [place] % (Auto) Not Reportable Eos % (Auto) Not Reportable Baso % (Auto) Not Reportable Lymph # (Auto) Not Reportable [place] # (Auto) Not Reportable Baso # (Auto) Not Reportable Total Counted 100 Seg Neutrophils % 54.0 D (38-70) % Band Neutrophils % 4.0 (3-7) % Lymphocytes % (Manual) 19.0 L (25-45) % Atypical Lymphs % 2.0 H ( - 0) % Monocytes % (Manual) 20.0 H (2-11) % Metamyelocytes % 1.0 H (-0) % Neutrophils # (Manual) 3422 (3570-9502) /uL Platelet Estimate Plt Morphology Comment RBC Morphology See Polychromasia Hypochromasia 1+ H Anisocytosis 1+ H Macrocytosis 1+ H D-Dimer (<230) ng/mL Sodium 141 (137-145) mmol/L Potassium 4.1 (3.4-5.1) mmol/L Chloride 111 H (98-107) mmol/L Carbon Dioxide 26 (22-32) mmol/L BUN 26 H (9-20) mg/dL Creatinine 1.31 H (0.66-1.25) mg/dL Estimated GFR 52.6 L (>60) mL/min BUN/Creatinine Ratio 19.8 (6-22) Glucose 105 (80-110) mg/dL Lactate 0.8 (0.7-2.1) mmol/L Calcium 7.9 L (8.4-10.2) mg/dL Total Bilirubin 0.7 (0.2-1.3) mg/dL AST 24 (17-59) IU/L ALT 26 (<50) IU/L Alkaline Phosphatase 115 (38-126) U/L Total Creatine Kinase (55-170) U/L CK-MB (CK-2) CK-MB (CK-2) Rel Index Troponin I 0.093 H (0.01-0.034) ng/mL NT-Pro-B Natriuret Pep (<450) pg/mL Total Protein 6.2 L (6.3-8.2) g/dL Albumin 3.1 L (3.5-5.0) g/dL Globulin 3.1 (1.7-4.1) g/dL Albumin/Globulin Ratio 1.0 (1.0-2.8) Lipase (23-300) U/L Procalcitonin (<0.5) ng/mL Urine RBC (0-5/HPF) Urine WBC (0-5/HPF) Urine Bacteria (None) Urine Mucus (Negative) Ur Culture Indicated? SARS-CoV-2 (PCR) (Negative) 11/14/20 11/14/20 11/14/20 Range/Units 05:15 05:15 05:15 WBC 5.9 (4.5-11.0) X10^3/uL RBC 2.40 L (4.5-5.9) X10^6/uL Hgb 8.4 L (13.5-17.5) g/dL Hct 24.9 L (41-53) % MCV 104.0 H (80-100) fL MCH 34.9 H (26-34) PG MCHC 33.5 (30-36) % RDW 14.6 (11.6-14.8) % Plt Count 77 L (150-400) X10^3/uL Neut % (Auto) Not Reportable Lymph % (Auto) Not Reportable [place] % (Auto) Not Reportable Eos % (Auto) Not Reportable Baso % (Auto) Not Reportable Lymph # (Auto) Not Reportable [place] # (Auto) Not Reportable Baso # (Auto) Not Reportable Total Counted 100 Seg Neutrophils % 53.0 (38-70) % Band Neutrophils % 8.0 H (3-7) % Lymphocytes % (Manual) 8.0 L (25-45) % Atypical Lymphs % ( - 0) % Monocytes % (Manual) 30.0 H (2-11) % Metamyelocytes % 1.0 H (-0) % Neutrophils # (Manual) 3599 (3478-9836) /uL Platelet Estimate Decreased on smear Plt Morphology Comment . RBC Morphology See below Polychromasia 1+ H Hypochromasia Anisocytosis Macrocytosis 1+ H D-Dimer (<230) ng/mL Sodium 139 (137-145) mmol/L Potassium 3.7 (3.4-5.1) mmol/L Chloride 110 H (98-107) mmol/L Carbon Dioxide 23 (22-32) mmol/L BUN 25 H (9-20) mg/dL Creatinine 0.98 (0.66-1.25) mg/dL Estimated GFR > 60.0 (>60) mL/min BUN/Creatinine Ratio 25.5 H (6-22) Glucose 90 (80-110) mg/dL Lactate (0.7-2.1) mmol/L Calcium 8.5 (8.4-10.2) mg/dL Total Bilirubin 0.9 (0.2-1.3) mg/dL AST 22 (17-59) IU/L ALT 22 (<50) IU/L Alkaline Phosphatase 113 (38-126) U/L Total Creatine Kinase (55-170) U/L CK-MB (CK-2) CK-MB (CK-2) Rel Index Troponin I 0.068 H (0.01-0.034) ng/mL NT-Pro-B Natriuret Pep (<450) pg/mL Total Protein 6.5 (6.3-8.2) g/dL Albumin 3.2 L (3.5-5.0) g/dL Globulin 3.3 (1.7-4.1) g/dL Albumin/Globulin Ratio 1.0 (1.0-2.8) Lipase 66 (23-300) U/L Procalcitonin (<0.5) ng/mL Urine RBC (0-5/HPF) Urine WBC (0-5/HPF) Urine Bacteria (None) Urine Mucus (Negative) Ur Culture Indicated? SARS-CoV-2 (PCR) (Negative) Urine Dip Bedside Urine Glucose Negative Bedside Urine Bilirubin - Negative Bedside Urine Ketone - Negative Urine Specific [place] 1.015 Bedside Urine Occult Blood - Negative Bedside Urine pH 6.0 Bedside Urine Protein ++ 100 Bedside Urine Urobilinogen - Negative Bedside Urine Nitrite - Negative Bedside Urine Leukocytes - Negative Esterase ECG Data Interpretation: 11/12/20 EKG 1. Sinus rhythm rate 71 CA interval 136 QRS [address] changes no T-wave inversion 11/12/20 EKG 2. Sinus rhythm rate 41 CA interval 138 QTC 433 no changes from prior, no ischemic changes MDM Narrative Medical decision making narrative: Multiple diagnoses considered including GB complications, stent problem, IN, PE among others. Ultimately patient has evidence of choleycystitis without stent complication. No EKG changes and bump in troponin. No evidence of PE on imaging. Patient stabilized and doing well, but requires transfer. DEEPTHI 11/14/20 8am Patient signed out to given by Dr. Montejo has seen evaluated the patient myself. Overall appears very well this morning. His very min or mole right upper quadrant pain. Troponin peaked at 0.193 and today has trended down to 0.068. He has no leukocytosis he has been afebrile he has been getting Zosyn around the clock. Transfer to [facility] for complicated gallbladder. 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 Recommendation is to repeat ERCP in 6 weeks to remove stent. He also had complicating factor pancytopenia which has also resolved. Patient to go back to [facility] waiting on bed placement. We continue to call [facility] every 4 hours, still no bed available patient has been in the emergency department now for 48 hours. He overall appears well troponin has improved. 1413- I reconsulted surgery Dr. Valentin he states concerned for patient's elevated troponin and stenting, bile duct needs higher level of care Patient accepted at and will be transferred. Discharge Plan Departure Patient Disposition: Xfer Acute Care Hospital Clinical Impression: Acute cholecystitis, Pancytopenia, Elevated troponin Prescriptions: No Action multivitamin [Multiple Vitamins] 1 EACH tablet 1 tab PO QDAY Qty: 0 RF: 0 tamsulosin [Flomax] 0.4 mg Capsule,Extended Release 24hr 0.4 mg PO DAILY RF: 0 lisinopril 5 mg Tablet 5 mg PO DAILY RF: 0 gabapentin 100 mg Capsule 100 mg PO DAILY RF: 0 gabapentin 100 mg Capsule 300 mg PO BEDTIME PRN (Reason: Muscle Pain) RF: 0 oxycodone-acetaminophen 5-325 mg tablet 1 tab PO Q6H PRN (Reason: pain) Qty: 10 RF: 0 lisinopril-hydrochlorothiazide 20-25 mg tablet 10 - 12.5 tab PO DAILY RF: 0 pantoprazole 40 mg tablet,delayed release (DR/EC) 40 mg PO BID 60 Days Qty: 120 RF: 0 ferrous sulfate 325 mg (65 mg iron) tablet 325 mg PO Q OTHER DAY 60 Days Qty: 30 RF: 0 Referrals: Nancy Simmons MD [Primary Care Provider] -
[2020-11-12] MEDS: ASPIRIN 81 MG CHEW TAB 324 MG PO (18:09)
[2020-11-12] MEDS: FUROSEMIDE 40 MG/4 ML VIAL IV (18:09)
[2020-11-12] MEDS: PIPERACILLIN/TAZO 4.5 GM in SODIUM CHLORIDE 0.9% 100 ML 200 ML IV (18:09)
--- NOTE | 2020-11-12 18:11 | DI.US.S_ITS ---
PROCEDURE: US ABDOMEN LIMITED INDICATIONS: RUQ PAIN; RECENT ERCP; SEPTIC TECHNIQUE: Real-time focused scanning was performed of the abdomen, with image documentation. COMPARISON: [facility], CR, XR CHEST 1V, 11/12/2020, 16:43. [facility], CR, XR CHEST 1V, 11/12/2020, 0:03. [facility], MR, MR ABDOMEN WO CON, 10/18/2020, 12:03. [facility], US, US ABDOMEN LIMITED, 11/04/2020, 13:06. FINDINGS: There is gallbladder wall thickening. The gallbladder wall measures 5 mm in diameter. There are numerous tiny gallstones. No sonographic Ryan sign. There is mild intrahepatic biliary ductal dilatation. The pancreatic duct is dilated, measuring 6 mm. IMPRESSION: 1. Interval dilatation of the pancreatic duct and central intrahepatic ducts suggesting a possible common duct stone. 2. Gallbladder wall thickening and numerous gallstones. Comment: MRCP may potentially be helpful. Dictated by: Dipesh Boucher M.D. on 11/12/2020 at 20:03 Approved by: Dipesh Boucher M.D. on 11/12/2020 at 20:07
[2020-11-12 18:38] LABS: COVID19 - ADMIT (NP swab/PCR) Negative (Negative)
[2020-11-12 20:44] LABS: Hematocrit 23.4 % (41-53); Hemoglobin 7.9 g/dL (13.5-17.5)
[2020-11-12 20:51] LABS: Bacteria Urine None Seen; RBC Urine None Seen (0-5/HPF); WBC Urine None Seen (0-5/HPF)
[2020-11-12 20:55] LABS: D Dimer 702 ng/mL (<230)
[2020-11-12 20:58] LABS: Alanine Aminotransferase 30 IU/L (<50); Albumin 3.3 g/dL (3.5-5.0); Alkaline Phosphatase 135 U/L (38-126); Aspartate Aminotransferase 27 IU/L (17-59); Bilirubin Total 0.8 mg/dL (0.2-1.3); Blood Urea Nitrogen 23 mg/dL (9-20); Calcium 7.8 mg/dL (8.4-10.2); Carbon Dioxide 24 mmol/L (22-32); Chloride 110 mmol/L (98-107); Estimated Glomerular Filt Rate 54.1 mL/min (>60); Globulin 3.3 g/dL (1.7-4.1); Glucose 128 mg/dL (80-110); HEMOLYSIS < 15 (0-50); Lactate (Lactic Acid) 0.8 mmol/L (0.7-2.1); Lipase 102 U/L (23-300); Sodium 139 mmol/L (137-145); Total Protein 6.6 g/dL (6.3-8.2)
--- NOTE | 2020-11-12 21:06 | DI.CT.S_ITS ---
PROCEDURE: CT ANGIO CHEST PE PROTOCOL INDICATIONS: septic, hypoxic, critical DDimer, troponin/BNP release TECHNIQUE: After the administration of intravenous contrast, 2 mm thick sections acquired from the pulmonary apices to the posterior costophrenic angles. 3-dimensional maximum intensity projection (MIP) coronal and sagittal reformats were then acquired through the thorax. For radiation dose reduction, the following was used: automated exposure control, adjustment of mA and/or kV according to patient size. COMPARISON: [facility], CT, CT ABDOMEN PELVIS W CON, 10/17/2020, 23:30. [facility], CT, CT ABDOMEN PELVIS W CON, 11/12/2020, 21:13. FINDINGS: Image quality: Excellent. Pulmonary arteries: Pulmonary arteries are normal in size, and demonstrate no intraluminal filling defects to suggest central pulmonary embolism. Lungs and pleura: Lungs are clear. No pleural effusions or pneumothorax. Central and peripheral airways are patent. Mediastinum: Heart size is top normal, with small pericardial effusion. At least moderate coronary artery calcifications. Shotty mediastinal and bilateral hilar lymph nodes. No abnormal individually size lymph nodes are noted. There are more lymph nodes that are typically seen. This is of uncertain significance, possibly reactive. Thoracic aorta is normal in caliber and enhancement. Esophagus is normal in caliber, without hiatal hernia. Bones and chest wall: No suspicious bony lesions. Ribs and thoracic spine appear intact throughout. Thyroid gland is unremarkable as visualized.. No axillary or supraclavicular adenopathy. Abdomen: Interval placement of an and a bit leery stent. Bile ducts are less dilated than previously. There is air present in the biliary tree. Better seen on the CT abdomen and pelvis is a new 1 cm low-density right lobe liver lesion, which may potentially represent a small biloma or small abscess. A 2 cm exophytic possible left renal cell carcinoma is again noted. IMPRESSION: 1. No evidence acute pulmonary emboli. 2. Shotty mediastinal and hilar adenopathy, of uncertain etiology. 3. No evidence of acute pulmonary process. 4. Coronary artery disease. 5. Interval placement of a biliary stent with significant improvement in biliary ductal dilatation. There is air of lucy. 6. Question developing small liver abscess versus biloma, better seen on the CT abdomen. 7. 2 cm exophytic left renal mass, possibly representing a small renal cell carcinoma. Dictated by: Dipesh Boucher M.D. on 11/12/2020 at 21:54 Approved by: Dipesh Boucher M.D. on 11/12/2020 at 21:59
--- NOTE | 2020-11-12 21:07 | DI.CT.S_ITS ---
PROCEDURE: CT ABDOMEN PELVIS W CON INDICATIONS: abdomen pain, known gall bladder disease, septic TECHNIQUE: After the administration of intravenous contrast, axial sections acquired from the lung bases to the pubic symphysis. Coronal and sagittal reformats were performed. For radiation dose reduction, the following was used: automated exposure control, adjustment of mA and/or kV according to patient size. COMPARISON: [facility], CT, CT ABDOMEN PELVIS W CON, 10/17/2020, 23:30. FINDINGS: Image quality: Excellent. Lung bases: Unremarkable. Heart: No significant findings. ABDOMEN: Liver: Air is present in left-sided intrahepatic ducts. Improvement in ductal dilatation post placement of a silastic extrahepatic biliary stent. Short interval development of a low-density lesion in the right lobe of the liver measuring approximately 1 cm on image 18/12. Consider developing biloma or small liver abscess. Gallbladder: Mostly collapsed. Air is present related to the endo biliary stent. There is a question of a exophytic gallbladder fundus mass. Biliary ducts: Unremarkable. Pancreas: Unremarkable. Spleen: Unremarkable. Adrenal Glands: Unremarkable. Kidneys and Ureters: Again noted is an exophytic hyperdense mass off the anterior aspect of the middle pole of the left kidney, possibly the representing a small left renal cell carcinoma. Multiple bilateral renal cysts are noted. There also benign-appearing calcifications bilaterally. Stomach and Bowel: No dilated bowel loops. Mild diverticulosis. Peritoneum: No abnormal intraperitoneal fluid. No free air. Ventral Wall: No hernias. Abdominal Nodes: No retroperitoneal or mesenteric adenopathy by size criteria. Vessels: Aorta and inferior vena cava are normal in size. Extensive atherosclerotic calcification. Severe or high-grade calcified stenosis of the left common femoral artery. PELVIS: Pelvic Organs: Enlarged prostate. Bladder: Unremarkable. Pelvic Nodes: No enlarged lymph nodes. Miscellaneous: No hernias are seen. Bones: Lumbar degenerative change. No lytic or blastic bony lesions. IMPRESSION: 1. Interval placement of a endo biliary silastic stent with decrease in biliary ductal dilatation. 2. Air is present in the gallbladder and in left-sided bile ducts secondary to the endoscopic stent. 3. Question small gallbladder fundus mass. 4. 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 5. Peripheral vascular disease. 6. Enlarged prostate. Dictated by: Dipesh Boucher M.D. on 11/12/2020 at 21:34 Approved by: Dipesh Boucher M.D. on 11/12/2020 at 21:44
[2020-11-12 21:12] LABS: Troponin I 0.193 ng/mL (0.01-0.034)
[2020-11-12 21:12] LABS: Culture Indicated Urine Cult Not Indicated; Mucus Urine 1+ (Negative)
[2020-11-13] VITALS (87 sets, daily range): BP systolic 88–201; BP diastolic 46–106; PULSE 39–100; RESP 5–30; TEMP 36.6–36.8; O2SAT 76–100
[2020-11-13] MEDS: SODIUM CHLORIDE 0.9% 1,000 ML 150 ML IV (00:18)
[2020-11-13] MEDS: PIPERACILLIN/TAZO 4.5 GM in SODIUM CHLORIDE 0.9% 100 ML 25 ML IV ×3 (02:16→18:48)
[2020-11-13] MEDS: HYDROMORPHONE 0.5 MG INJ IV (02:16)
--- NOTE | 2020-11-13 02:25 | PC.NURSE ---
he was just medicated for c/o some back pain after DR Montejo was notified.
[2020-11-13 06:16] LABS: Hematocrit 22.6 % (41-53); Hemoglobin 7.6 g/dL (13.5-17.5); Mean Corpuscular HGB Conc 33.6 % (30-36); Mean Corpuscular Hemoglobin 35.1 PG (26-34); Mean Corpuscular Volume 104.5 fL (80-100); Platelet Count 70 X10^3/uL (150-400); Red Blood Cell Count 2.16 X10^6/uL (4.5-5.9); Red Cell Distribution Width 14.2 % (11.6-14.8); White Blood Cell Count 5.9 X10^3/uL (4.5-11.0)
[2020-11-13 06:20] LABS: Alanine Aminotransferase 26 IU/L (<50); Albumin 3.1 g/dL (3.5-5.0); Alkaline Phosphatase 115 U/L (38-126); Aspartate Aminotransferase 24 IU/L (17-59); BUN Creatinine Ratio 19.8 (6-22); Bilirubin Total 0.7 mg/dL (0.2-1.3); Blood Urea Nitrogen 26 mg/dL (9-20); Calcium 7.9 mg/dL (8.4-10.2); Carbon Dioxide 26 mmol/L (22-32); Chloride 111 mmol/L (98-107); Estimated Glomerular Filt Rate 52.6 mL/min (>60); Globulin 3.1 g/dL (1.7-4.1); Glucose 105 mg/dL (80-110); HEMOLYSIS < 15 (0-50); Potassium 4.1 mmol/L (3.4-5.1); Sodium 141 mmol/L (137-145); Total Protein 6.2 g/dL (6.3-8.2)
[2020-11-13 06:23] LABS: Add Manual Diff / Slide Review YES
[2020-11-13 06:31] LABS: Troponin I 0.093 ng/mL (0.01-0.034)
[2020-11-13 06:55] LABS: Neutrophils Absolute Manual 3422 /uL (3000-5900); Total Cells Counted 100
[2020-11-13 06:56] LABS: Anisocytosis 1+; Hypochromasia 1+; RBC Morphology See
[2020-11-13 06:57] LABS: Macrocytosis 1+
[2020-11-13] MEDS: ACETAMINOPHEN 325 MG TABLET 650 MG PO (10:14)
[2020-11-13] MEDS: HYDRALAZINE 20 MG/ML VIAL 10 MG IV (14:54)
[2020-11-13] MEDS: hydroCHLOROthiazide 25 MG TABLET 12.5 MG PO (20:50)
[2020-11-13] MEDS: lisinopriL 20 MG TABLET PO (20:52)
[2020-11-14] VITALS (77 sets, daily range): BP systolic 164–208; BP diastolic 76–130; PULSE 42–104; RESP 4–27; TEMP 36.4–36.6; O2SAT 91–100
[2020-11-14] MEDS: PIPERACILLIN/TAZO 4.5 GM in SODIUM CHLORIDE 0.9% 100 ML 25 ML IV ×2 (01:55→09:54)
[2020-11-14 05:39] LABS: Hematocrit 24.9 % (41-53); Hemoglobin 8.4 g/dL (13.5-17.5); Mean Corpuscular HGB Conc 33.5 % (30-36); Mean Corpuscular Hemoglobin 34.9 PG (26-34); Platelet Count 77 X10^3/uL (150-400); Red Cell Distribution Width 14.6 % (11.6-14.8); White Blood Cell Count 5.9 X10^3/uL (4.5-11.0)
[2020-11-14 05:40] LABS: Alanine Aminotransferase 22 IU/L (<50); Albumin 3.2 g/dL (3.5-5.0); Alkaline Phosphatase 113 U/L (38-126); Aspartate Aminotransferase 22 IU/L (17-59); BUN Creatinine Ratio 25.5 (6-22); Bilirubin Total 0.9 mg/dL (0.2-1.3); Blood Urea Nitrogen 25 mg/dL (9-20); Calcium 8.5 mg/dL (8.4-10.2); Carbon Dioxide 23 mmol/L (22-32); Chloride 110 mmol/L (98-107); Estimated Glomerular Filt Rate > 60.0 mL/min (>60); Globulin 3.3 g/dL (1.7-4.1); Glucose 90 mg/dL (80-110); HEMOLYSIS < 15 (0-50); Lipase 66 U/L (23-300); Potassium 3.7 mmol/L (3.4-5.1); Sodium 139 mmol/L (137-145); Total Protein 6.5 g/dL (6.3-8.2)
[2020-11-14 05:41] LABS: Add Manual Diff / Slide Review YES
[2020-11-14 05:52] LABS: Troponin I 0.068 ng/mL (0.01-0.034)
[2020-11-14 06:10] LABS: Neutrophils Absolute Manual 3599 /uL (3000-5900); Total Cells Counted 100
[2020-11-14 06:12] LABS: Macrocytosis 1+; Polychromasia 1+
[2020-11-14 06:13] LABS: Platelet Estimate Decreased on smear
[2020-11-14] MEDS: PANTOPRAZOLE 40 MG VIAL IV (06:31)
[2020-11-14] MEDS: lisinopriL 20 MG TABLET PO (06:41)
[2020-11-14] MEDS: hydroCHLOROthiazide 25 MG TABLET PO (06:42)
[2020-11-14] MEDS: GABAPENTIN 100 MG CAPSULE PO (06:42)
[2020-11-14] MEDS: SODIUM CHLORIDE 0.9% 1,000 ML 100 ML IV (07:59)
--- NOTE | 2020-11-14 16:38 | PC.NURSE ---
report to transfer center NIDHI Ratliff Report#[id number]
== END 2020-11-14 16:56 | disposition short-term general hospital (02) ==
PROVIDERS: Emergency Medicine; Emergency Provider Emergency Medicine; PCP Internal Medicine
DX: K81.0 Acute cholecystitis (principal); R77.8 Other specified abnormalities of plasma proteins; D61.818 Other pancytopenia; R53.1 Weakness; R11.0 Nausea; Z20.822 Contact with and (suspected) exposure to COVID-19
CPT/HCPCS: 36415; 71045; 71275; 74177; 76705; 80053; 81003; 81015; 82550; 83605; 83690; 83880; 84145; 84484; 85007; 85014; 85018; 85025; 85379; 87040; 87086; 87635; 93005; 96361; 96365; 96366; 96375; 96376; 99285; C9803; C9113; J0360; J1170; J1940; J2543; Q9967

== ENCOUNTER → 2021-04-13 14:51 | Outpatient (CLI) | payer OTHER, SELFPAY ==
[2020-12-02 15:45] VITALS: BMI 24.7
[2021-04-13 18:36] LABS: COVID-19 CEPHEID PCR (VTM/NP) Negative (Negative)
== END ==
PROVIDERS: PCP Internal Medicine; Referring Provider Family Medicine Sleep Medicine; Visit Provider Family Medicine Sleep Medicine
DX: Z20.822 Contact with and (suspected) exposure to COVID-19 (principal)
CPT/HCPCS: C9803; U0003

== ENCOUNTER 2021-08-19 19:19 | Emergency (ER) | payer OTHER, SELFPAY ==
[2020-12-02 15:45] VITALS: BMI 24.7
[2021-08-19 19:38] VITALS: BP 172/72; PULSE 69; RESP 16; TEMP 36.8; O2SAT 98; BMI 23.7
--- NOTE | 2021-08-19 21:32 | ED_ITS ---
HPI - Skin/Abscess/Foreign Bdy General Chief complaint: Skin/Abscess/Foreign Body Stated complaint: CAT BITE LEFT HAND Time Seen by Provider: 08/19/21 21:22 Source: patient Mode of arrival: Ambulatory Limitations: no limitations History of Present Illness HPI narrative: 81-year-old male nonsmoker with history of gallstone pancreatitis and cirrhosis as well as hypertension and coronary artery disease presents for evaluation of a cat bite on his left hand. He states that he was rough-housing with his cat about 30 hours ago when she bit him on the dorsum of his left hand. He has a few small puncture wounds with scabs overlying but no redness, swelling or red streaks. He denies systemic findings such as fever, chills nor nausea or vomiting. He is otherwise well and free of complaint. He states his tetanus will need to be updated as it has been quite sometime since he had last received 1 Related Data Home Medications Medication Instructions Recorded Confirmed lisinopril 5 mg tablet 5 mg PO DAILY 08/04/17 01/28/21 lisinopril 20 10 - 12.5 tab PO DAILY 07/18/19 01/28/21 mg-hydrochlorothiazide 25 mg tablet aspirin 81 mg tablet,delayed 81 mg PO DAILY 12/17/20 01/28/21 release multivitamin 1 tab PO DAILY 12/17/20 01/28/21 tamsulosin 0.4 mg capsule 0.4 mg PO DAILY 12/19/20 01/28/21 Previous Rx's Medication Instructions Recorded amoxicillin 875 mg-potassium 1 tab PO Q12H #20 tab 08/19/21 clavulanate 125 mg tablet Allergies Allergy/AdvReac Type Severity Reaction Status Date / Time No Known Drug Allergies Allergy Verified 01/28/21 13:26 Review of Systems Review of Systems Narrative: GENERAL: Denies chills, fatigue, malaise, fever, sweats. HEENT: Denies sinus pain, ear pain, sore throat, difficulty swallowing, dizziness. RESPIRATORY: Denies dyspnea, cough, wheezing, hemoptysis, sputum. CARDIOVASCULAR: Denies chest pain, palpitations, orthopnea, edema, GASTROINTESTINAL: Denies nausea, vomiting, abdominal pain, diarrhea, constipation, melena. : Denies dysuria, frequency, incontinence, hematuria, urinary retention. MUSCULOSKELETAL: denies weakness, joint pain, or bony pain SKIN: See HPI NEUROLOGIC: Denies weakness, headache, numbness, change in speech, confusion, seizures, incoordination. PSYCHIATRIC: No concerning psychosocial issues. 12 point review of systems is negative except for those stated above Patient History Medical History Acute cholecystitis Acute pancreatitis Bowel obstruction BPH (benign prostatic hyperplasia) Hypertension Pancytopenia Family History Mother Old age Father Myocardial infarction Social History marital status: household members: spouse Smoking Status: Never smoker alcohol intake: current Smoking Status: Never smoker alcohol intake frequency: 0-2 drinks per day Substance Use Type: marijuana Exam Narrative Exam Narrative: GEN: AOx3 and in mild distress EYES: Pupils are equal, round, and reactive to light and accommodation. Extraoccular muscles are intact bilaterally. There is no subconjunctival hemorrhage or exudate. CHEST: Lungs are clear to auscultation bilaterally and free of wheezes, rales, or rhonchi. Heart rate is regular rhythm, there are no murmurs, clicks, rubs, or gallops. There is no chest wall tenderness. ABD: Abdomen is soft and nontender. There is no guarding or rebound. Bowel yovany nds are normal in all 4 quadrants. There is no mass or organomegaly. EXT: For well healing, scabbed over puncture wounds on dorsum of left hand without erythema, induration, fluctuance, drainage or lymphangitis. SKIN: Warm, pink, and dry. No erythema or rash Initial Vital Signs Initial Vital Signs: Vital Signs Temperature 98.2 F 08/19/21 19:38 Pulse Rate 69 08/19/21 19:38 Respiratory Rate 16 08/19/21 19:38 Blood Pressure 172/72 H 08/19/21 19:38 Pulse Oximetry 98 08/19/21 19:38 Course Orders Ordered: Discontinued Medications Amoxicillin/Clavulanate Potassium (Amoxicillin/Clav 875/125 Mg) 1 tab PO NOW ONE Stop: 08/19/21 21:33 Last Admin: 08/19/21 21:44 Dose: 1 tab Documented by: DBROYLE Diphtheria/Tetanus/Acell Pertussis (Tet,Diph,Pertuss(Acell),Vac/Pf 0.5 Ml Syringe) 0.5 ml IM .ONCE ONE Stop: 08/19/21 21:33 Last Admin: 08/19/21 21:44 Dose: 0.5 ml Documented by: SASHA Vital Signs Vital signs: Vital Signs - 8 hr 08/19/21 19:38 08/19/21 21:51 Temperature 98.2 F Pulse Rate 69 70 Respiratory Rate 16 18 Blood Pressure 172/72 H 165/70 H Pulse Oximetry 98 97 MDM - Skin/Abscess/Foreign Bdy MDM Narrative Medical decision making narrative: 81-year-old male with cat bite to left hand with very reassuring history and physical exam. He has no systemic complaints such as fever, chills nor nausea or vomiting. The wounds are well healing without obvious suggestion of cellulitis or abscess. Patient's tetanus is updated, 1st dose of Augmentin given, prescription sent to his pharmacy and extensive return precautions given. Questions answered to his apparent satisfaction Discharge Plan Departure Patient Disposition: Home Clinical Impression: Cat bite of hand Qualifiers: Encounter type: initial encounter Laterality: left Qualified Code(s): S61.452A - Open bite of left hand, initial encounter Instructions: DI for Animal Bites Activity Restrictions/Additional Instructions: *You have been diagnosed with [cat bite of left hand without evidence of cellulitis or abscess. *What to do: *Please continue to take your regular medications as directed. [ x] New medication prescriptions sent to your pharmacy: [[facility] ] [ ] New medication written as a paper prescription [ ] No new medications given *Please follow up with your primary care provider in 2-3 days, call for an martín ointment. Let them know you were seen in the Emergency Department and that we ask that you be seen in follow up. We will electronically transmit a record of today's note if your PCP is in our system *If you do not have a primary care provider please contact the [facility] Resource line at [phone]. They will ask some questions about your medical history and help get you set up with a doctor in the community. *Return to Emergency Department if you should have any new, worsening or concerning symptoms, such as [fever greater than 101 F, shaking chills, worsening pain, persistent vomiting or other bothersome symptoms] Prescriptions: New amoxicillin-pot clavulanate 875-125 mg tablet 1 tab PO Q12H Qty: 20 0RF No Action aspirin 81 mg tablet,delayed release (DR/EC) 81 mg PO DAILY 0RF multivitamin Tablet 1 tab PO DAILY 0RF tamsulosin 0.4 mg capsule 0.4 mg PO DAILY 0RF lisinopril 5 mg Tablet 5 mg PO DAILY 0RF lisinopril-hydrochlorothiazide 20-25 mg tablet 10 - 12.5 tab PO DAILY 0RF Referrals: Nancy Simmons MD [Primary Care Provider] - Visit Report Forms: Patient Portal/API
[2021-08-19] MEDS: TET,DIPH,PERTUSS(ACELL),VAC/PF 0.5 ML SYRINGE IM (21:44)
[2021-08-19] MEDS: AMOXICILLIN/CLAV 875/125 MG 1 TAB PO (21:44)
[2021-08-19 21:51] VITALS: BP 165/70; PULSE 70; RESP 18; O2SAT 97
== END 2021-08-19 21:52 | disposition home or self-care (01) ==
PROVIDERS: Emergency Provider Emergency Medicine; PCP Internal Medicine
DX: S61.452A Open bite of left hand, initial encounter (principal); W55.01XA Bitten by cat, initial encounter; Z23 Encounter for immunization
CPT/HCPCS: 90471; 99283; 90715

== ENCOUNTER 2022-01-14 05:16 | Emergency (ER) | payer OTHER, SELFPAY ==
[2020-12-02 15:45] VITALS: BMI 24.7
[2022-01-14 05:22] VITALS: BP 249/112; PULSE 82; RESP 18; O2SAT 98; BMI 22.5
--- NOTE | 2022-01-14 05:25 | ED_ITS ---
HPI - Dental/Oral General Chief complaint: Dental/Oral Stated complaint: mouth is bleeding Time Seen by Provider: 01/14/22 05:25 History of Present Illness HPI Narrative: Patient is an 81-year-old male history of coronary artery disease on aspirin presenting with mouth bleeding. He had a tooth pulled about 1 week ago. He woke up to a mouth full of blood. He has been trying to get it to stop and has been unsuccessful. Related Data Home Medications Medication Instructions Recorded Confirmed lisinopril 5 mg tablet 5 mg PO DAILY 08/04/17 01/28/21 lisinopril 20 10 - 12.5 tab PO DAILY 07/18/19 01/28/21 mg-hydrochlorothiazide 25 mg tablet aspirin 81 mg tablet,delayed 81 mg PO DAILY 12/17/20 01/28/21 release multivitamin 1 tab PO DAILY 12/17/20 01/28/21 tamsulosin 0.4 mg capsule 0.4 mg PO DAILY 12/19/20 01/28/21 Previous Rx's Medication Instructions Recorded amoxicillin 875 mg-potassium 1 tab PO Q12H #20 tabs 08/19/21 clavulanate 125 mg tablet Allergies Allergy/AdvReac Type Severity Reaction Status Date / Time No Known Drug Allergies Allergy Verified 01/28/21 13:26 Review of Systems Review of Systems Narrative: GENERAL: Denies chills,fever HEENT: See HPI RESPIRATORY: Denies dyspnea, cough, wheezing CARDIOVASCULAR: Denies chest pain, palpitations GASTROINTESTINAL: Denies nausea, vomiting MUSCULOSKELETAL: Denies extremity pain, injury SKIN: No rash, no laceration, no pruritus NEUROLOGIC: Denies weakness, dizziness, headache, numbness 8 point review of systems is negative except for those stated above and HPI Patient History Medical History Acute cholecystitis Acute pancreatitis Bowel obstruction BPH (benign prostatic hyperplasia) Hypertension Pancytopenia Family History Mother Old age Father Myocardial infarction Social History marital status: household members: spouse Smoking Status: Never smoker alcohol intake: current Smoking Status: Never smoker alcohol intake frequency: 0-2 drinks per day Substance Use Type: marijuana Exam Initial Vital Signs Initial Vital Signs: Vital Signs Pulse Rate 82 11/03/22 05:22 Respiratory Rate 18 01/14/22 05:22 Blood Pressure 249/112 H 01/14/22 05:22 Pulse Oximetry 98 01/14/22 05:22 Oxygen Delivery Method 01/14/22 05:22 GENERAL: Alert pleasant 81-year-old male RESPIRATORY: No respiratory distress, speaks in full sentences without difficulty EXTREMITIES: Normal range of motion, no clubbing or edema. Neurovascularly intact NEUROLOGICAL: Cranial nerves II through XII grossly intact. Normal gait and speech. SKIN: Warm, dry, no petechiae, no rashes or lesions. HENMT Adult Head Mouth w/Numbe Teeth: 1. Empty socket bleeding sutures noted Procedures Nerve Block Nerve Block 1: Local Anesthetic: lidocaine 1% and with epi Intraoral Nerve Block: supraperiosteal Course Vital Signs Vital signs: Vital Signs - 8 hr 01/14/22 05:22 01/14/22 06:25 01/14/22 06:24 Temperature Pulse Rate 82 37 L 44 L Respiratory Rate 18 16 Blood Pressure 249/112 H 171/83 H Pulse Oximetry 98 98 97 Oxygen Delivery Method Room Air 01/14/22 06:30 01/14/22 06:47 Temperature 97.8 F Pulse Rate 40 L 67 Respiratory Rate 14 Blood Pressure 174/74 H Pulse Oximetry 97 96 Oxygen Delivery Method MDM - Dental/Oral MDM Narrative Medical decision making narrative: Patient rinse mouth mouth out with cool water. Lidocaine with epinephrine applied gauze folded in stacked pressure apply it. Patient tolerating pressure seems to be helping. Clot is formed no further bleeding after 45 minutes Discharge Plan Departure Patient Disposition: Home Clinical Impression: Status post tooth extraction Instructions: DI for Tooth Extraction Activity Restrictions/Additional Instructions: Bleeding after tooth extraction Please follow the below guidelines to avoid rebleeding. If bleeding should start apply pressure old gauze a paper towel is for 45-60 minutes. You may also try black tea in cool water, wraps the Tea bag in a paper towel and apply pressure. The black tea helps form blood clots. Please do Please follow-up with your dentist in 2-3 days Please take all medications as directed Return to the emergency department if you have continued bleeding for longer than 1 hour, or if you should have increased pain or any new or worsening symptoms * Insure that a blood clot forms and stays within the tooth socket * Blood clots that form within the empty socket are an important factor within the healing process. You should be careful not to do anything to disrupt its formation. * There are many steps to take to protect the developing blood clot within the first 24 hours after a tooth extraction. * Avoid vigorous rinsing or spitting * Stay away from hot liquids * Minimize the air pressure differences. Avoid creating pressure within your mouth or sinuses as these may dislodge the actual blood clot from the socket. This means you should avoid smoking or using a straw as these cause suction. Avoid blowing your nose and sneeze with your mouth open. Avoid playing wind instruments for a few days to ease up on the sensitivity. * Minimize activities that make it difficult to control bleeding * Avoid difficult work or strenuous exercise. You should avoid bending or lifting heavy objects altogether. You should try taking it easy for at least 1-2 days after the tooth extraction. * When you are resting or sleeping, try to lie down so that your head is above your heart. This will lower your blood pressure and help control bleeding. * Be prepared for swelling * When your tooth is extracted, your tissues undergo some trauma and will swell and cause sensitivity. The amount of swelling that occurs could be slight or very large. * Avoid smoking * Smokers will experience more complications with a tooth extraction including increased bleeding. Avoid smoking for at least 48 hours after having the tooth pulled out. * Eating * After a tooth extraction, eat only soft or liquid form foods for at least the first 24 hours following the surgery. * Do not vigorously chew anything. * Avoid hard or crunchy foods that can further traumatize the extraction site and cause further bleeding. * Do not consume hot liquids as they will dissolve the blood clot. Prescriptions: No Action aspirin 81 mg tablet,delayed release (DR/EC) 81 mg PO DAILY multivitamin Tablet 1 tab PO DAILY tamsulosin 0.4 mg capsule 0.4 mg PO DAILY lisinopril 5 mg Tablet 5 mg PO DAILY lisinopril-hydrochlorothiazide 20-25 mg tablet 10 - 12.5 tab PO DAILY amoxicillin-pot clavulanate 875-125 mg tablet 1 tab PO Q12H Qty: 20 0RF Referrals: Nancy Simmons MD [Primary Care Provider] - Visit Report Forms: Patient Portal/API
--- NOTE | 2022-01-14 05:30 | PC.NURSE ---
c/o bleeding from extraction site, pt had a tooth pulled last Santiago now his gum is bleeding
[2022-01-14 06:24] VITALS: PULSE 44; O2SAT 97
[2022-01-14 06:25] VITALS: BP 171/83; PULSE 37; RESP 16; O2SAT 98
[2022-01-14 06:30] VITALS: PULSE 40; O2SAT 97
[2022-01-14 06:47] VITALS: BP 174/74; PULSE 67; RESP 14; TEMP 36.6; O2SAT 96
== END 2022-01-14 06:48 | disposition home or self-care (01) ==
PROVIDERS: Emergency Provider Emergency Medicine; PCP Internal Medicine
DX: K08.409 Partial loss of teeth, unspecified cause, unspecified class (principal)
CPT/HCPCS: 99281

== ENCOUNTER 2022-03-28 03:31 | Emergency (ER) | payer OTHER, SELFPAY ==
[2020-12-02 15:45] VITALS: BMI 24.7
[2022-03-28] VITALS (17 sets, daily range): BP systolic 155–184; BP diastolic 67–84; PULSE 73–107; RESP 9–22; TEMP 36.7; O2SAT 95–99; BMI 27.1
--- NOTE | 2022-03-28 03:44 | DI.RAD.S_ITS ---
PROCEDURE: XR ABDOMEN MIN 2V INDICATIONS: constipation, no BM since Tuesday TECHNIQUE: 2 views of the abdomen were acquired. COMPARISON: [facility], CT, CT ABDOMEN PELVIS W CON, 03/28/2022, 6:04. FINDINGS: Surgical changes and devices: None. Bowel: No pneumoperitoneum. The bowel gas pattern is normal. There is a moderate volume of stool seen in the colon. Soft tissues: No masses; visualized solid organ contours appear normal in size. No suspicious abdominal calcifications. Bones: No suspicious bony abnormalities. Age-appropriate bony degenerative changes are seen. Mild dextroconvex scoliotic curvature is seen. IMPRESSION: A moderate volume of stool is seen within the colon, which is consistent history. Note: No significant discrepancy from the preliminary report. Dictated by: Cornel Beltran M.D. on 03/28/2022 at 8:29 Approved by: Cornel Beltran M.D. on 03/28/2022 at 8:34
--- NOTE | 2022-03-28 04:30 | ED.ABDPAIN ---
HPI - Abdominal Pain General Chief Complaint: Abdominal Pain Stated Complaint: Constipation Time Seen by Provider: 03/28/22 03:44 History of Present Illness HPI narrative: This is an 81-year-old male with history of coronary artery disease with complaint of constipation and no bowel movement since Tuesday, patient is having a lot of lower abdominal pain and also indicates he has not urinated recently. Patient denies fevers, denies chest pain or shortness of breath. He denies any vomiting but EMS stated when they picked him up he did have emesis one time. Patient denies any back or flank pain. He has tried to go the bathroom twice before I saw him in the department and has had small amount of liquid stool. Patient is unsure of the last time he urinated. He states he does take medication but he does not recall what they are currently. He denies any prior surgeries. Denies any drug allergies. No tobacco, occasional alcohol, no illicit. Related Data Home Medications Medication Instructions Recorded Confirmed lisinopril 5 mg tablet 5 mg PO DAILY 08/04/17 01/28/21 lisinopril 20 10 - 12.5 tab PO DAILY 07/18/19 01/28/21 mg-hydrochlorothiazide 25 mg tablet aspirin 81 mg tablet,delayed 81 mg PO DAILY 12/17/20 01/28/21 release multivitamin 1 tab PO DAILY 12/17/20 01/28/21 tamsulosin 0.4 mg capsule 0.4 mg PO DAILY 12/19/20 01/28/21 Allergies Allergy/AdvReac Type Severity Reaction Status Date / Time No Known Drug Allergies Allergy Verified 01/28/21 13:26 Review of Systems Review of Systems ROS Unobtainable: All systems reviewed & are unremarkable except as noted in HPI and below Patient History Medical History Acute cholecystitis Acute pancreatitis Bowel obstruction BPH (benign prostatic hyperplasia) Hypertension Pancytopenia Family History Mother Old age Father Myocardial infarction Social History marital status: household members: spouse Smoking Status: Never smoker alcohol intake: former (He has not drunk for a year or so. ) substance use type: marijuana Smoking Status: Never smoker alcohol intake frequency: 0-2 drinks per day Substance Use Type: marijuana Exam Narrative Exam Narrative: GENERAL: Alert and oriented x three, elderly male who appears little bit agitated. He is trouble focusing on our conversation and appears quite uncomfortable. HEENT: Head normocephalic, atraumatic, EOMI, pupils reactive, face symmetric, moist mucous membranes NECK: Supple, full range of motion CARDIOVASCULAR: Regular rate and rhythm without murmurs, rubs or gallops. RESPIRATORY: Breath sounds equal bilaterally, no wheezes rales or rhonchi. ABDOMEN: Soft, abdomen is tender, lower abdomen is quite distended and I can palpate patient's bladder on exam. Normoactive bowel sounds all 4 quadrants. No guarding or rebound, rigidity, no mass. Digital rectal exam patient has some brown liquid stool in a brief and on has a hard stool present on rectal exam. Negative for blood. : No CVA tenderness EXTREMITIES: Normal range of motion, no clubbing or edema. Neurovascularly intact NEUROLOGICAL: Cranial nerves II through XII grossly intact. Moving all extremities SKIN: Warm, dry, no petechiae, no rashes or lesions. Initial Vital Signs Initial Vital Signs: Vital Signs Pulse Rate 90 03/28/22 03:39 Respiratory Rate 16 03/28/22 03:39 Blood Pressure 183/82 H 03/28/22 03:39 Pulse Oximetry 98 03/28/22 03:39 Course Orders Ordered: ED Orders 03/28/22 03:44 XR abdomen min 2V Stat CBC Auto Diff [Complete Blood Count AUTO DIFF] Stat CMP [Comprehensive Metabolic Panel] Stat Lipase Stat PTT [Partial Thromboplastin Time] Stat Prothrombin Time INR Stat Vital Signs Vital signs: Vital Signs - 8 hr 03/28/22 03:39 03/28/22 03:39 03/28/22 04:02 Temperature Pulse Rate 90 94 H Respiratory Rate 16 Blood Pressure 183/82 H Pulse Oximetry 98 96 Oxygen Delivery Method 03/28/22 04:10 03/28/22 04:10 03/28/22 03:50 Temperature 98.1 F Pulse Rate 84 98 H Respiratory Rate 16 20 Blood Pressure 184/84 H 184/81 H Pulse Oximetry 98 99 Oxygen Delivery Method Room Air MDM - Abdominal Pain Lab Data Result diagrams: 03/28/22 05:32 03/28/22 05:32 Labs: Lab Results 03/28/22 03/28/22 03/28/22 Range/Units 05:25 05:32 05:32 WBC 2.2 L (4.5-11.0) X10^3/uL RBC 2.36 L (4.5-5.9) X10^6/uL Hgb 8.1 L (13.5-17.5) g/dL Hct 23.6 L (41-53) % MCV 99.9 (80-100) fL MCH 34.3 H (26-34) PG MCHC 34.3 (30-36) % RDW 15.5 H (11.6-14.8) % Plt Count 47 L (150-400) X10^3/uL Neut % (Auto) Not Reportable Lymph % (Auto) Not Reportable [place] % (Auto) Not Reportable Eos % (Auto) Not Reportable Baso % (Auto) Not Reportable Lymph # (Auto) Not Reportable [place] # (Auto) Not Reportable Baso # (Auto) Not Reportable Total Counted 50 Seg Neutrophils % 50.0 D (38-70) % Band Neutrophils % 6.0 (3-7) % Lymphocytes % (Manual) 12.0 L (25-45) % Atypical Lymphs % 4.0 H ( - 0) % Monocytes % (Manual) 28.0 H (2-11) % Neutrophils # (Manual) 1232 L (6242-9890) /uL RBC Morphology See below Poikilocytosis 2+ H Anisocytosis 1+ H Ovalocytes 1+ H Schistocytes 1+ H PT 15.7 H (10.1-12.7) SECONDS INR 1.4 H (0.9-1.3) APTT 31 (26-36) SECONDS Sodium (137-145) mmol/L Potassium (3.4-5.1) mmol/L Chloride (98-107) mmol/L Carbon Dioxide (22-32) mmol/L BUN (9-20) mg/dL Creatinine (0.66-1.25) mg/dL Estimated GFR (>60) mL/min BUN/Creatinine Ratio (6-22) Glucose (80-110) mg/dL Calcium (8.4-10.2) mg/dL Total Bilirubin (0.2-1.3) mg/dL AST (17-59) IU/L ALT (<50) IU/L Alkaline Phosphatase (38-126) U/L Total Protein (6.3-8.2) g/dL Albumin (3.5-5.0) g/dL Globulin (1.7-4.1) g/dL Albumin/Globulin Ratio (1.0-2.8) Lipase (23-300) U/L Urine RBC 1-5/hpf (0-5/HPF) Urine WBC 0-1/hpf (0-5/HPF) Ur Squamous Epith Cells 0-1 /hpf (0-5/HPF) Urine Bacteria None seen (None) Ur Culture Indicated? Cult not indicated 03/28/22 Range/Units 05:32 WBC (4.5-11.0) X10^3/uL RBC (4.5-5.9) X10^6/uL Hgb (13.5-17.5) g/dL Hct (41-53) % MCV (80-100) fL MCH (26-34) PG MCHC (30-36) % RDW (11.6-14.8) % Plt Count (150-400) X10^3/uL Neut % (Auto) Lymph % (Auto) [place] % (Auto) Eos % (Auto) Baso % (Auto) Lymph # (Auto) [place] # (Auto) Baso # (Auto) Total Counted Seg Neutrophils % (38-70) % Band Neutrophils % (3-7) % Lymphocytes % (Manual) (25-45) % Atypical Lymphs % ( - 0) % Monocytes % (Manual) (2-11) % Neutrophils # (Manual) (5064-1184) /uL RBC Morphology Poikilocytosis Anisocytosis Ovalocytes Schistocytes PT (10.1-12.7) SECONDS INR (0.9-1.3) APTT (26-36) SECONDS Sodium 138 (137-145) mmol/L Potassium 4.0 (3.4-5.1) mmol/L Chloride 105 (98-107) mmol/L Carbon Dioxide 21 L (22-32) mmol/L BUN 26 H (9-20) mg/dL Creatinine 1.08 (0.66-1.25) mg/dL Estimated GFR > 60 (>60) mL/min BUN/Creatinine Ratio 24.1 H (6-22) Glucose 133 H (80-110) mg/dL Calcium 8.8 (8.4-10.2) mg/dL Total Bilirubin 1.1 (0.2-1.3) mg/dL AST 29 (17-59) IU/L ALT 18 (<50) IU/L Alkaline Phosphatase 98 (38-126) U/L Total Protein 8.2 (6.3-8.2) g/dL Albumin 4.0 (3.5-5.0) g/dL Globulin 4.2 H (1.7-4.1) g/dL Albumin/Globulin Ratio 1.0 (1.0-2.8) Lipase 14 L (23-300) U/L Urine RBC (0-5/HPF) Urine WBC (0-5/HPF) Ur Squamous Epith Cells (0-5/HPF) Urine Bacteria (None) Ur Culture Indicated? Point of care testing: Urine Dip Bedside Urine Glucose Negative Bedside Urine Bilirubin - Negative Bedside Urine Ketone - Negative Urine Specific [place] 1.025 Bedside Urine Occult Blood +/- Bedside Urine pH 6.0 Bedside Urine Protein + 30 Bedside Urine Urobilinogen - Negative Bedside Urine Nitrite - Negative Bedside Urine Leukocytes - Negative Esterase Imaging Data Abdominal x-ray: My Impression: Patient does not have air-fluid levels, does not hear have a lot of obvious stool on x-ray has air but not completely to the rectum. No free air appreciated. [facility] Narrative Medical decision making narrative: This is an 81-year-old male with complaint of constipation 1 episode of vomiting this evening, he has hard stool on digital rectal exam with some overflow incontinence but also appears to be in urinary retention. Patient had Bar catheter placed. Patient had significant improvement in symptoms discomfort. X-ray does not show clear obstruction but does not have air all the way to the rectum. Patient states that been having nausea and vomiting on the way here today. CT ordered to evaluate for obstruction. Patient had labs to evaluate for anemia as he has a history pancytopenia, renal function as he appears to be with acute urinary obstruction. Your no signs of infection. Patient signed out to Dr. Montejo while awaiting additional workup. Discharge Plan Departure Patient Disposition: Home Clinical Impression: Acute urinary retention, Acute constipation Instructions: DI for Constipation, DI for Urinary Retention in Men Activity Restrictions/Additional Instructions: *You have been diagnosed with [ abdominal pain due to constipation and urinary retention] *What to do: *Take over the counter medications as directed: 1. Metamucil - is a bulk forming laxative and adds fiber 2. Colace - softens your stool 3. Dulcolax suppository - stimulates your bowels *Follow up with your primary care provider in 2-3 days, call for appointment * also, as we discussed we will leave the Bar catheter in place to help your bladder drain, please contact your urologist, or the urologist listed below for follow-up. Please call them Tuesday or Tuesday morning, let them know you were seen in the emergency department and we would like you seen for follow-up *Return to ER if you should have any new, worsening or concerning symptoms *Drink plenty of water and eat foods high in fiber *Stay as active as you can as this helps move your bowels as well Prescriptions: No Action aspirin 81 mg tablet,delayed release (DR/EC) 81 mg PO DAILY multivitamin Tablet 1 tab PO DAILY tamsulosin 0.4 mg capsule 0.4 mg PO DAILY lisinopril 5 mg Tablet 5 mg PO DAILY lisinopril-hydrochlorothiazide 20-25 mg tablet 10 - 12.5 tab PO DAILY Referrals: Duke Gallardo MD [Primary Care Provider] - Kasia Murray MD [Physician] - Stand Alone Forms: Patient Portal/API
[2022-03-28 05:51] LABS: INR 1.4 (0.9-1.3); Prothrombin Time 15.7 SECONDS (10.1-12.7)
[2022-03-28 05:53] LABS: PTT Partial Thromboplastin Tim 31 SECONDS (26-36)
--- NOTE | 2022-03-28 05:58 | DI.CT.S_ITS ---
PROCEDURE: CT ABDOMEN PELVIS W CON INDICATIONS: constipation, urinary retention, vomiting TECHNIQUE: After the administration of IV contrast, axial sections were acquired from the lung bases to the pubic symphysis. Coronal and sagittal reformats were performed. For radiation dose reduction, the following was used: automated exposure control, adjustment of mA and/or kV according to patient size. COMPARISON: [facility], CT, CT ABDOMEN RENAL PROTOCOL, 11/05/2021, 13:09. [facility], CR, XR ABDOMEN MIN 2V, 03/28/2022, 3:52. [facility], CT, CT ABDOMEN PELVIS W CON, 11/12/2020, 21:13. FINDINGS: Image quality: There is streak artifact seen through the upper abdomen. Lung bases: Mild dependent atelectasis/scarring can be seen. Heart: No significant findings. Moderate coronary artery calcification is seen. ABDOMEN: Liver: Moderate intrahepatic biliary ductal dilatation can be seen on the left. Gallbladder: Moderate wall thickening is seen. No tanvir pericholecystic fluid can be seen. Biliary ducts: No significant intrahepatic biliary ductal dilatation is seen. Pancreas: Unremarkable. Spleen: Unremarkable. Adrenal Glands: Unremarkable. Kidneys and Ureters: Several foci of renal calcification can be seen, as before. Simple cysts and complex renal cysts can be seen, which are similar to priors. No hydronephrosis is seen. The kidneys demonstrate normal size and enhance symmetrically. Stomach and Bowel: There is a moderate amount of stool seen within the colon. The cecum is seen within the right upper quadrant. There is mild thickening of the wall of the terminal ileum. No dilated loops of small bowel are seen. The stomach is decompressed, limiting its evaluation. Peritoneum: No abnormal intraperitoneal fluid. No free air. Ventral Wall: No hernia. Abdominal Nodes: No retroperitoneal or mesenteric adenopathy by size criteria. Vessels: The IVC demonstrates normal size. The distal aorta demonstrates focal ectasia measuring up to 2.8 cm. Atherosclerotic calcification is noted. PELVIS: Pelvic Organs: The prostate is enlarged, measuring 6.4 cm transversely. Bladder: A Bar catheter is seen, which decompresses the bladder. Pelvic Nodes: No enlarged lymph nodes. Miscellaneous: No inguinal hernias are seen. Bones: Mild dextroconvex scoliotic curvature is seen. Lower lumbar spine degenerative changes are seen. Milder degenerative changes are seen elsewhere. IMPRESSION: A moderate amount of stool is seen within the colon, which is consistent with the given clinical history of constipation. Cecum is seen within the right upper quadrant. There is mild thickening of the wall of the terminal ileum, which may be artifactual. No dilated loops of small bowel are seen. A Bar catheter is seen, decompressing the bladder. Enlarged prostate. Abnormal kidneys, with complex and simple cysts. Numerous renal calcifications can be seen. Additional findings: Moderate coronary artery calcification Thickened wall of the gallbladder, without additional CT abnormality Focal ectasia of the distal abdominal aorta, without tanvir aneurysm Focal lower lumbar spine degenerative change Mild dextroconvex scoliotic curvature is seen. Note: No significant discrepancy from the preliminary report. Dictated by: Cronel Beltran M.D. on 03/28/2022 at 7:32 Approved by: Cornel Beltran M.D. on 03/28/2022 at 7:39
[2022-03-28 06:00] LABS: Alanine Aminotransferase 18 IU/L (<50); Alkaline Phosphatase 98 U/L (38-126); Aspartate Aminotransferase 29 IU/L (17-59); BUN Creatinine Ratio 24.1 (6-22); Bilirubin Total 1.1 mg/dL (0.2-1.3); Blood Urea Nitrogen 26 mg/dL (9-20); Calcium 8.8 mg/dL (8.4-10.2); Carbon Dioxide 21 mmol/L (22-32); Chloride 105 mmol/L (98-107); Estimated Glomerular Filt Rate > 60 mL/min (>60); Glucose 133 mg/dL (80-110); HEMOLYSIS < 15 (0-50); Lipase 14 U/L (23-300); Sodium 138 mmol/L (137-145); Total Protein 8.2 g/dL (6.3-8.2)
[2022-03-28 06:12] LABS: Hematocrit 23.6 % (41-53); Hemoglobin 8.1 g/dL (13.5-17.5); Mean Corpuscular HGB Conc 34.3 % (30-36); Mean Corpuscular Hemoglobin 34.3 PG (26-34); Mean Corpuscular Volume 99.9 fL (80-100); Platelet Count 47 X10^3/uL (150-400); Red Blood Cell Count 2.36 X10^6/uL (4.5-5.9); Red Cell Distribution Width 15.5 % (11.6-14.8); White Blood Cell Count 2.2 X10^3/uL (4.5-11.0)
[2022-03-28 06:23] LABS: Add Manual Diff / Slide Review YES
[2022-03-28 07:13] LABS: Neutrophils Absolute Manual 1232 /uL (3000-5900); Total Cells Counted 50
[2022-03-28 07:14] LABS: Anisocytosis 1+; Ovalocytes 1+; Poikilocytosis 2+
[2022-03-28 07:16] LABS: Schistocytes 1+
[2022-03-28 07:40] LABS: Globulin 4.2 g/dL (1.7-4.1)
[2022-03-28 08:08] LABS: Bacteria Urine None Seen; Culture Indicated Urine Cult Not Indicated; RBC Urine 1-5/HPF (0-5/HPF); Squamous Epithelial Cell Urine 0-1 /HPF (0-5/HPF); WBC Urine 0-1/HPF (0-5/HPF)
--- NOTE | 2022-03-28 09:45 | PC.NURSE ---
pt had liquid brown stool. small amount. pt declined another enema. dr. Montejo aware.
--- NOTE | 2022-03-28 11:18 | PC.NURSE ---
went over [facility] and gave instructions how to clean and take care of it. reviewed instructions with leg bag how to empty and attach to leg. verbalized an understanding. demonstrated how to turn the valve to open and close it.
== END 2022-03-28 11:22 | disposition home or self-care (01) ==
PROVIDERS: Emergency Medicine; Emergency Provider Emergency Medicine; PCP Internal Medicine
DX: N39.0 Urinary tract infection, site not specified (principal); R10.30 Lower abdominal pain, unspecified; K59.00 Constipation, unspecified
CPT/HCPCS: 36415; 74019; 74177; 80053; 81003; 81015; 83690; 85007; 85025; 85610; 85730; 99284

== ENCOUNTER 2022-04-09 14:20 | Emergency (ER) | payer OTHER, SELFPAY ==
[2020-12-02 15:45] VITALS: BMI 24.7
[2022-04-09 14:47] VITALS: BP 157/67; PULSE 82; RESP 16; TEMP 36.9; O2SAT 96; BMI 25.4
[2022-04-09 15:48] LABS: Appearance Urine UA CLEAR; Bilirubin Urine UA NEGATIVE (NEGATIVE); Color Urine UA YELLOW; Glucose Urine UA NEGATIVE (Negative); Ketones Urine UA NEGATIVE (NEGATIVE); Leukocyte Esterase Urine UA 1+ (NEGATIVE); Nitrite Urine UA POSITIVE (Negative); Occult Blood Urine UA 2+ (Negative); Protein Urine UA 2+ (Negative); Specific Gravity Urine UA 1.015 (1.000-1.035); Urobilinogen Urine UA 0.2 E.U./dL (0.2)
[2022-04-09 15:50] LABS: Bacteria Urine Moderate (10-30); Culture Indicated Urine Specimen Cultured; RBC Urine 1-5/HPF (0-5/HPF); Squamous Epithelial Cell Urine None Seen (0-5/HPF); WBC Urine 10-30/HPF (0-5/HPF)
--- NOTE | 2022-04-09 16:33 | ED_ITS ---
HPI - Male Genitourinary <JAMES Burden - Last Filed: 04/09/22 16:58> General Chief complaint: Urogenital-Male Stated complaint: had cath removed T-3 trouble urinating now Time Seen by Provider: 04/09/22 15:00 Source: patient Mode of arrival: Ambulatory History of Present Illness HPI Narrative: This is 81-year-old male who has history of urinary retention in the past and is currently on Flomax 0.4 mg b.i.d. who presents to the emergency department 3 days after his catheter was removed with urinary retention. He denies fever, chills, states that he had an upcoming appointment with Dr. Musa but this was not until April. He has not seen a urologist yet. He denies fever, chills, abdominal pain, states that he is just unable to empty his bladder and denies rectal pain. He states that he has been hydrated, does not have flank pain, denies any other symptoms at this time. Related Data Home Medications Medication Instructions Recorded Confirmed lisinopril 5 mg tablet 5 mg PO DAILY 08/04/17 01/28/21 lisinopril 20 10 - 12.5 tab PO DAILY 07/18/19 01/28/21 mg-hydrochlorothiazide 25 mg tablet aspirin 81 mg tablet,delayed 81 mg PO DAILY 12/17/20 01/28/21 release multivitamin 1 tab PO DAILY 12/17/20 01/28/21 tamsulosin 0.4 mg capsule 0.4 mg PO DAILY 12/19/20 01/28/21 Previous Rx's Medication Instructions Recorded cefuroxime axetil 500 mg tablet 500 mg PO BID 10 days #20 tabs 04/09/22 polyethylene glycol 3350 17 17 g PO DAILY For soft stools #238 04/09/22 gram/dose oral powder (Miralax) grams tamsulosin 0.4 mg capsule (Flomax) 0.8 mg PO BEDTIME #20 caps 04/09/22 Allergies Allergy/AdvReac Type Severity Reaction Status Date / Time No Known Drug Allergies Allergy Verified 04/09/22 14:47 Review of Systems <JAMES Burden - Last Filed: 04/09/22 16:58> Review of Systems ROS Unobtainable: All systems reviewed & are unremarkable except as noted in HPI and below Patient History <JAMES Burden - Last Filed: 04/09/22 16:58> Medical History Acute cholecystitis Acute pancreatitis Bowel obstruction BPH (benign prostatic hyperplasia) Hypertension Pancytopenia Family History Mother Old age Father Myocardial infarction Social History marital status: household members: spouse Smoking Status: Never smoker alcohol intake: former (He has not drunk for a year or so. ) substance use type: marijuana Smoking Status: Never smoker alcohol intake frequency: 0-2 drinks per day Substance Use Type: marijuana Exam <JAMES Burden - Last Filed: 04/09/22 16:58> Narrative Exam Narrative: Reviewed vitals signs and nursing notes. General: cooperative, comfortable, in no acute distress, well groomed HEENT: symmetrical facial expressions, moist mucous membranes Cardiovascular: regular rate and rhythm, no peripheral edema, warm extremities Respiratory: normal effort, able to speak in complete sentences, without wheezing, stridor, or abnormal breath sounds. No retractions or tachypnea. GI: abdomen soft, nontender to palpation, nondistended, without masses, rebound tenderness or exquisite tenderness with exam no CVA tenderness MSK: moves all extremities, neurovascularly intact, no weakness, normal tone Skin: brisk capillary refill, without pallor or erythema Neuro: normal speech and cognition, A&O x3, ambulatory, clear speech Psych: mental status is grossly normal, congruent mood, normal affect, pleasant and cooperative Initial Vital Signs Initial Vital Signs: Vital Signs Temperature 98.4 F 04/09/22 14:47 Pulse Rate 82 04/09/22 14:47 Respiratory Rate 16 04/09/22 14:47 Blood Pressure 157/67 H 04/09/22 14:47 Pulse Oximetry 96 04/09/22 14:47 Oxygen Delivery Method 04/09/22 14:47 <Brenda Bill DO - Last Filed: 04/12/22 07:49> Initial Vital Signs Initial Vital Signs: Vital Signs Temperature 98.4 F 04/09/22 14:47 Pulse Rate 82 04/09/22 14:47 Respiratory Rate 16 04/09/22 14:47 Blood Pressure 157/67 H 04/09/22 14:47 Pulse Oximetry 96 04/09/22 14:47 Oxygen Delivery Method 04/09/22 14:47 Course <JAMES Burden - Last Filed: 04/09/22 16:58> Orders Ordered: Discontinued Medications Cefdinir (Cefdinir 300 Mg Capsule) 300 mg PO NOW ONE Stop: 04/09/22 16:03 Last Admin: 04/09/22 17:01 Dose: Not Given Documented By: SULEMAN Cefuroxime Axetil (Cefuroxime 250 Mg Tablet) 500 mg PO NOW ONE Stop: 04/09/22 16:05 Last Admin: 04/09/22 16:52 Dose: 500 mg Documented By: SULEMAN Lidocaine HCl (Lidocaine 2% (Glydo) 6 Ml Gel) 6 ml TOP NOW ONE Stop: 04/09/22 16:52 Last Admin: 04/09/22 16:54 Dose: 6 ml Documented By: RLS Vital Signs Vital signs: Vital Signs - 8 hr 04/09/22 14:47 Temperature 98.4 F Pulse Rate 82 Respiratory Rate 16 Blood Pressure 157/67 H Pulse Oximetry 96 Oxygen Delivery Method Room Air <Brenda Bill DO - Last Filed: 04/12/22 07:49> Orders Ordered: Discontinued Medications Cefdinir (Cefdinir 300 Mg Capsule) 300 mg PO NOW ONE Stop: 04/09/22 16:03 Last Admin: 04/09/22 17:01 Dose: Not Given Documented By: RLS Cefuroxime Axetil (Cefuroxime 250 Mg Tablet) 500 mg PO NOW ONE Stop: 04/09/22 16:05 Last Admin: 04/09/22 16:52 Dose: 500 mg Documented By: RLS Lidocaine HCl (Lidocaine 2% (Glydo) 6 Ml Gel) 6 ml TOP NOW ONE Stop: 04/09/22 16:52 Last Admin: 04/09/22 16:54 Dose: 6 ml Documented By: RLS Vital Signs Vital signs: Vital Signs - 8 hr 04/09/22 14:47 Temperature 98.4 F Pulse Rate 82 Respiratory Rate 16 Blood Pressure 157/67 H Pulse Oximetry 96 Oxygen Delivery Method Room Air MDM - Male Genitourinary <JAMES Burden - Last Filed: 04/09/22 16:58> Lab Data Lab results narrative: Organism 1 Enterobacter cloacae complex Action to follow Refer to Previous Culture for Susceptibility Report BC Comments Isolated in Pediatric Bottle Called To: CALLED + RESULT FOR [id number] Last urine culture with growth was 11/12/2020 which shows results above. Urine culture from 11/12/2020 does not show any growth, urine culture today is pending Labs: Lab Results 04/09/22 Range/Units 15:42 Urine Color Yellow Urine Appearance Clear Urine pH 6.0 (4.5-8.0) Ur Specific Brutus 1.015 (1.000-1.035) Urine Protein 2+ H (Negative) Urine Glucose (UA) Negative (Negative) g/dL Urine Ketones Negative (NEGATIVE) Urine Occult Blood 2+ H (Negative) Urine Nitrate Positive H (Negative) Urine Bilirubin Negative (NEGATIVE) Urine Urobilinogen 0.2 (0.2) E.U./dL Ur Leukocyte Esterase 1+ H (NEGATIVE) Urine RBC 1-5/hpf (0-5/HPF) Urine WBC 10-30/hpf H (0-5/HPF) Ur Squamous Epith Cells None seen (0-5/HPF) Urine Bacteria Moderate (10-30) H (None) Ur Culture Indicated? Specimen cultured MDM Narrative Medical decision making narrative: Chief Complaint: Urinary retention This is 81-year-old male who has history of urinary retention in the past and is currently on Flomax 0.4 mg b.i.d. who presents to the emergency department 3 days after his catheter was removed with urinary retention. He denies fever, chills, states that he had an upcoming appointment with Dr. Musa but this was not until April. He has not seen a urologis Differential diagnoses include but are not limited to: BPH, malignancy, prostatitis, colitis, pyelonephritis, acute cystitis, obstructive uropathy, constipation induced urinary retention, intra-abdominal mass, urolithiasis equina. I have reviewed the patient's vital signs and nursing notes as well as prior records if available. Lab test results independently reviewed, pertinent findings: UA with WBCs, moderate bacteria, UA is pending for culture Patient was brought back to her room after 1 was available, he has 385 mL in his bladder 2 hours ago when it was bladder scanned. UA shows WBCs and bacteria, will treat with cefuroxime times 10 days for history of complicated UTI. He is not seen a urologist yet, will encourage him to set up follow-up with Dr. Wisdom or Dr. Murray as patient is local. On-call Urology group is from [facility] today. Patient was set to meet Dr. Musa from [facility] however this appointment is not until next month and unclear if he has an appointment pending or not. He had his Bar catheter removed 3 days ago, Bar catheter was placed today for urinary retention, he was treated with cefuroxime as stated above. He will continue on this and follow-up with urology. He has already started tamsulosin at 0.8 mg q.day divided into 2 doses. He will stay on this and return for any new or worsening symptoms or if he does not start getting better. Patient's symptoms improved over duration of stay with above-stated therapies. Social considerations that may affect disposition: none Questions are addressed and there is agreement with the plan and for follow-up. Patient is appropriate for outpatient management. MIPS: This encounter doesn't have any diagnosis' associated with MIPS criteria. <Brenda Bill, DO - Last Filed: 04/12/22 07:49> Lab Data Labs: Lab Results 04/09/22 Range/Units 15:42 Urine Color Yellow Urine Appearance Clear Urine pH 6.0 (4.5-8.0) Ur Specific Brutus 1.015 (1.000-1.035) Urine Protein 2+ H (Negative) Urine Glucose (UA) Negative (Negative) g/dL Urine Ketones Negative (NEGATIVE) Urine Occult Blood 2+ H (Negative) Urine Nitrate Positive H (Negative) Urine Bilirubin Negative (NEGATIVE) Urine Urobilinogen 0.2 (0.2) E.U./dL Ur Leukocyte Esterase 1+ H (NEGATIVE) Urine RBC 1-5/hpf (0-5/HPF) Urine WBC 10-30/hpf H (0-5/HPF) Ur Squamous Epith Cells None seen (0-5/HPF) Urine Bacteria Moderate (10-30) H (None) Ur Culture Indicated? Specimen cultured Discharge Plan Departure Patient Disposition: Home Clinical Impression: Acute urinary retention, Cystitis Instructions: How to Care for Your Bar Catheter -- Male, Acute Cystitis, DI for Urinary Retention in Men Activity Restrictions/Additional Instructions: *You have been diagnosed with a bladder infection and urinary retention. Please increase your Flomax 0.8 mg each night. Please start this antibiotic, we will call you if the urine culture suggest we should change this. Please follow-up with your urologist or with Dr. Murray/Dr. Wisdom. Please return for worsening pain, or a catheter related problem. Please use the stool softener daily to help soft stools and this will reduce your pain. You for coming in for evaluation today, make an appointment with one of the urologists and follow-up next week if able. *What to do: *Please continue to take your regular medications as directed. [x ] New medication prescriptions sent to your pharmacy: [ [facility]] [ ] New medication written as a paper prescription [ ] No new medications given *Please follow up with your primary care provider in 2-3 days, call for an appointment. Let them know you were seen in the Emergency Department and that we asked that you be seen for follow-up. We will electronically transmit a record of today's note if your PCP is in our system *If you do not have a primary care provider please contact [phone] to establish care with one of the [facility] primary care providers. *Return to Emergency Department if you should have any new, worsening, or concerning symptoms, such as [fever greater than 101F, chills, worsening pain, persistent vomiting or other bothersome symptoms]. Prescriptions: New cefuroxime axetil 500 mg tablet 500 mg PO BID 10 Days Qty: 20 0RF tamsulosin [Flomax] 0.4 mg capsule 0.8 mg PO BEDTIME Qty: 20 0RF polyethylene glycol 3350 [Miralax] 17 gram/dose powder 17 g PO DAILY Qty: 238 0RF No Action aspirin 81 mg tablet,delayed release (DR/EC) 81 mg PO DAILY multivitamin Tablet 1 tab PO DAILY tamsulosin 0.4 mg capsule 0.4 mg PO DAILY lisinopril 5 mg Tablet 5 mg PO DAILY lisinopril-hydrochlorothiazide 20-25 mg tablet 10 - 12.5 tab PO DAILY Referrals: Duke Gallardo MD [Primary Care Provider] - Kasia Murray MD [Physician] - Daniel Wisdom MD [Physician] - Stand Alone Forms: Patient Portal/API <Brenda C Mank, DO - Last Filed: 04/12/22 07:49> Cosign ED Attending Cosnormaature Attestation: I was immediately available in the department for consultation. Documentation has been reviewed. patient culture returned, patient has staph epidermidis greater than 100,000 with resistant to oxacillin but otherwise has sensitivities but not to cefuroxime. Patient's medications, labs and allergies reviewed plan to change to Bactrim DS 1 p.o. b.i.d. x7 days, 14. Tablets to be sent to the pharmacy of patient's choice. Nursing is reaching out to the patient.
[2022-04-09] MEDS: cefUROXime 250 MG TABLET 500 MG PO (16:52)
[2022-04-09] MEDS: LIDOCAINE 2% (GLYDO) 6 ML GEL TOP (16:54)
[2022-04-09 17:28] VITALS: BP 178/82; PULSE 70; RESP 19; O2SAT 99
--- NOTE | 2022-04-09 18:09 | PC.NURSE ---
after catheter insertion
--- NOTE | 2022-04-09 18:11 | PC.NURSE ---
pt tolerated mooney insertion without difficulty. mooney connected to leg bag. pt understands how to take care of mooney. .no further questions
== END 2022-04-09 17:28 | disposition home or self-care (01) ==
PROVIDERS: Emergency Provider Nurse Practitioner Critical Care Medicine; PCP Internal Medicine
DX: N30.00 Acute cystitis without hematuria (principal); R33.8 Other retention of urine
CPT/HCPCS: 51798; 81001; 87077; 87086; 87147; 87186; 99283; 99284

== ENCOUNTER → 2023-12-15 16:27 | Outpatient (CLI) | payer OTHER, SELFPAY ==
[2020-12-02 15:45] VITALS: BMI 24.7
== END ==
PROVIDERS: PCP Internal Medicine; Visit Provider Nurse Practitioner Family
DX: R30.0 Dysuria (principal)
CPT/HCPCS: 87086